=== PATIENT | female | born 1955 ===

== ENCOUNTER 2024-10-28 06:03 | Day surgery (SDC) | payer OTHER, SELFPAY ==
[2024-10-28 06:29] VITALS: BP 124/65
[2024-10-28 06:29] LABS: Glucose - Point of Care 98 mg/dl (70-99)
[2024-10-28] MEDS: ALCAINE 0.5% EYE DROPS 2 DROP OPHTH (06:32)
[2024-10-28] MEDS: PRED FORTE 1% EYE DROPS 1 DROP OPHTH (06:32)
[2024-10-28] MEDS: POLYTRIM OPHTHALMIC SOLUTION 1 DROP OPHTH (06:33)
[2024-10-28] MEDS: NEO-SYNEPHRINE 2.5% OPH SOL. 1 DROP OPHTH (06:33)
[2024-10-28] MEDS: MYDRIACYL 1 DROP OPHTH (06:33)
[2024-10-28] MEDS: CYCLOGYL 1% EYE DROPS 1 DROP OPHTH (06:33)
[2024-10-28 06:34] VITALS: BMI 28.9
[2024-10-28] MEDS: ACUVAIL 10 DROPS OPHTH (06:34)
[2024-10-28] MEDS: AKTEN OPHTHALMIC GEL 1 ML OPHTH (06:34)
[2024-10-28 06:35] VITALS: BMI 28.9
[2024-10-28] MEDS: NORMOSOL-R/PLASMALYTE-A 1000 IV (06:38)
[2024-10-28 07:47] VITALS: BP 105/75
[2024-10-28 08:02] VITALS: BP 98/40
== END 2024-10-28 08:55 | disposition home or self-care (01) ==
LOC: SDS 06:03
PROVIDERS: ATTENDING PHYSICIAN Ophthalmology
DX: H25.12 Age-related nuclear cataract, left eye (principal)
CPT/HCPCS: 66984; 82962

== ENCOUNTER 2024-11-11 06:11 | Day surgery (SDC) | payer OTHER, SELFPAY ==
[2024-11-11 06:23] VITALS: BMI 28.9
[2024-11-11 06:42] VITALS: BP 140/73; BMI 28.9
[2024-11-11 06:43] LABS: Glucose - Point of Care 131 mg/dl (70-99)
[2024-11-11] MEDS: ALCAINE 0.5% EYE DROPS 1 DROP OPHTH (06:47)
[2024-11-11] MEDS: POLYTRIM OPHTHALMIC SOLUTION 1 DROP OPHTH (06:48)
[2024-11-11] MEDS: MYDRIACYL 1 DROP OPHTH (06:48)
[2024-11-11] MEDS: PRED FORTE 1% EYE DROPS 1 DROP OPHTH (06:48)
[2024-11-11] MEDS: ACUVAIL 10 DROPS OPHTH (06:49)
[2024-11-11] MEDS: AKTEN OPHTHALMIC GEL 1 ML OPHTH (06:49)
[2024-11-11] MEDS: NEO-SYNEPHRINE 2.5% OPH SOL. 1 DROP OPHTH (06:49)
[2024-11-11] MEDS: CYCLOGYL 1% EYE DROPS 1 DROP OPHTH (06:49)
[2024-11-11 07:45] VITALS: BP 130/55
[2024-11-11 08:00] VITALS: BP 115/92
== END 2024-11-11 08:15 | disposition home or self-care (01) ==
LOC: SDS 06:11
PROVIDERS: ATTENDING PHYSICIAN Ophthalmology
DX: H25.11 Age-related nuclear cataract, right eye (principal)
CPT/HCPCS: 66984; 82962

== ENCOUNTER 2025-05-29 12:18 | Inpatient (IN) | payer MEDICARE, OTHER, SELFPAY ==
[2025-05-29] VITALS (40 sets, daily range): BP systolic 81–115; BP diastolic 31–84; PULSE 2–67; BMI 27.5; BMI 26.3
--- NOTE | 2025-05-29 09:42 | ED.GENMED ---
History of Present Illness
General
Chief Complaint: Change in Mental Status
Time Seen by Provider: 05/29/25 09:42
History of Present Illness
History of Present Illness:
FOCUSED PAST MEDICAL HISTORY
- Aortic stenosis, atrial fibrillation on Xarelto, CHF, CAD
REVIEW OF OLD RECORDS
- The patient went to the OR with Dr. Momin related to nuclear cataract of both eyes
Note:
CHIEF COMPLAINT(S)
Altered mental status with slurred speech and difficulty finding words.
HISTORY OF PRESENT ILLNESS
The patient is a 69-year-old female with a history of heart conditions, including atrial fibrillation and congestive heart failure, who presented with an acute change in mental status. Per the staff at [facility], the patient was last noted
to be mentally stable yesterday. However, upon routine check this morning between 8:30 and 8:45 AM, she exhibited slurred speech, nystagmus, and word-finding difficulties, suggesting a significant shift in her neurological state. There were concerns
about facial droop, although this was not conclusively identified as new due to her pre-existing tics and tremors.
The patient recently transferred to [facility] from [facility] on May 25, 2025, after a month-long admission for congestive heart failure (CHF) and osteomyelitis management. Her baseline condition before this
recent hospitalization included independence�she was living and driving on her own. It is noteworthy that she is currently on Rivaroxaban for atrial fibrillation.
Pre-hospital treatment adjustments included withholding Furosemide due to elevated blood urea nitrogen and creatinine levels. The patient is reportedly on supplemental oxygen at a rate of one liter per minute at [facility], which is a recent
development as she was not previously reliant on oxygen. This decline in respiratory function appears to relate to her history of CHF, as it exacerbates on occasion, requiring hospital admissions for intravenous diuretic therapy. However, the
current respiratory issue is mild but contrasts her historical presentation where oxygen was not utilized.
The immediate plan involves obtaining a CT scan of the head to investigate the possibility of a cerebrovascular accident, given her symptoms.
ADDITIONAL HISTORY OBTAINED FROM SOURCES OTHER THAN THE PATIENT
According to the staff at [facility], observations were made this morning that indicated a major change in her mental status, including slurred speech and word-finding difficulties. She was previously doing well without these symptoms.
CHRONIC MEDICAL CONDITIONS SIGNIFICANTLY AFFECTING CARE
- Atrial fibrillation
- Congestive heart failure
- Aortic stenosis
PHYSICAL EXAM
- General: The patient is ill-appearing
- HEENT: Moist oral mucosa
- Cardiovascular: Systolic murmur upper border right, normal heart rate, regular rhythm, No chest wall tenderness
- Pulmonary: Minimal respiratory distress, breath sounds are somewhat coarse
- Abdomen: Soft with no peritoneal signs, no tenderness
- Neurologic: The patient is aphasic, nonverbal upon arrival, seems to be able to follow command to open and close eyes but does this very weakly, no spontaneous movements of the extremities, subtle facial asymmetry
- Psychiatric: Currently nonverbal does not participate with examination
- Extremities: Nontender, no edema
- Skin: No rash, no lesions
PLAN
- Conduct a CT scan of the head to evaluate for possible stroke.
- Continue monitoring respiratory status and adjust oxygen therapy as necessary.
- Emergent EEG
DIFFERENTIAL DIAGNOSIS
The Differential Diagnosis includes, in no particular order and is not limited to:
1. Ischemic stroke
2. Transient ischemic attack
3. Intracranial hemorrhage
4. Medication side effects or toxicity
5. Metabolic encephalopathy
6. Sepsis
7. Acute exacerbation of congestive heart failure
8. Electrolyte imbalances
9. Infection (e.g., pneumonia, sepsis)
10. Atrial fibrillation-related embolism
RADIOLOGY
- CT head shows no acute abnormality
EKG
- Sinus 78, nonspecific abnormality, PVCs
LABS
- White count 15.3, hemoglobin 10.2, BUN 57, creatinine 2.0, BNP 12,700, troponin 0.081
UPDATE
-SUMMARY OF ENCOUNTER
The patient, a 69-year-old female with a history of atrial fibrillation and congestive heart failure, presented with altered mental status, slurred speech, and difficulty finding words. Her bedside Ceribell EEG showed a seizure burden reaching up to
97%, indicating significant neurological activity leading to these symptoms. Emergency management included administration of diazepam and levetiracetam (Keppra) to address the suspected seizure activity. This intervention led to some improvement in
her condition, although concerns about her neurological status remain.
EMERGENCY TREATMENTS ADMINISTERED
The patient received diazepam and levetiracetam (Keppra) during her emergency department visit to manage her acute seizure activity.
PLAN
The immediate plan involves obtaining a CT scan of the head to evaluate for possible stroke and continuing seizure management with ongoing monitoring for further interventions as necessary.
I discussed case with neurology
MEDICAL DECISION MAKING
-Complexity of Data Reviewed: Chronic conditions affecting care include atrial fibrillation, congestive heart failure, and aortic stenosis. Differential diagnosis considerations include ischemic stroke, transient ischemic attack, intracranial
hemorrhage, medication side effects or toxicity, metabolic encephalopathy, sepsis, acute exacerbation of congestive heart failure, electrolyte imbalances, infection, and atrial fibrillation-related embolism.
-Data:
Category 1: An EEG was reviewed, which showed a seizure burden up to 97%. This finding significantly influenced the decision to administer anticonvulsants.
Category 2: Additional information was obtained from staff at the care facility where the patient is currently residing, indicating an acute change in her mental status and confirming the onset of new symptoms.
Category 3: The patients care plan involved collaboration with neurology specialists for further management of her seizure disorder.
-Risk: Prescription medication for seizure management was administered in the form of diazepam and levetiracetam, noting the potential risks associated with acute anticonvulsant therapy.
DIAGNOSIS
1. Altered mental status, R41.82
2. Seizure, R56.9
Phy Exam
Physical Exam
Physical Exam:
See HPI
Course
Orders/Labs/Results
Orders:
Orders
05/29/25 09:44
CT Head W/o Iv Contrast Urgent
Comment:
Reason For Exam: alt ms
CR Chest Single View Urgent
Reason For Exam: sob
05/29/25 10:07
Ceribell [Rapid Point of Care EEG (ED/ICU ONLY)] Q1H
Indications for use:: Altered Mental Status
05/29/25 10:19
Levetiracetam Injectable [Keppra] 1,000 mg IV NOW STA
diazePAM [Valium Injection] 2.5 mg IV NOW STA
05/29/25 10:21
Complete Blood Count/With Diff Urgent
NT-proBNP Urgent
Troponin I Q6H
05/29/25 10:37
Consult Neurology [NEUROLOGY CONSULT] Urgent
Consulting Provider: Billy Ordonez
Was physician already notified: Yes
05/29/25 10:43
Speech Screening from Tessie Routine
05/29/25 10:59
Comprehensive Metabolic Panel Urgent
Magnesium Urgent
05/29/25 11:27
Admit/Transfer Patient As Directed
Co-Sign Provider:
Level of Care: Inpatient admission
Assign to:: ICU
Physician / Group: Hector
Diagnosis: Status epilepticus
Reason for Hospitalization: Neurology consult, seizure control
Expected length of stay greater than two midnights?: Yes
ELOS- Estimated Length of Stay in days: 3
I certify the patient meets the requirements for IP care: Yes
05/29/25 11:28
PRN Pain Medication Management As Directed
May give lesser potent ordered pain med per pt: Yes
preference::
Protocol:: Medication orders for pain may be administered in a
manner that supports deferring to patient preference
when the pt is:
- Requesting an ordered lesser potent pain medication.
Least to most potent pain medications are defined
as: acetaminophen < NSAID < tramadol < opioids
(morphine, oxycodone, hydromorphone).
- Requesting a lesser dose of the same medication IF
ORDERED.
- Requesting a less intrusive route of administration
if both routes are prescribed by the provider (PO <
IV).
05/29/25 11:33
Code Status As Directed
Resuscitation Status: Full Code
05/29/25 11:40
Electrocardiogram (*1) Urgent
Reason for Study: Chest Pain
EKG- Treatment ONCE
05/29/25 11:42
Levetiracetam Injectable [Keppra] 500 mg .ROUTE .STK-MED ONE
05/29/25 11:43
Levetiracetam Injectable [Keppra] 500 mg IV NOW STA
05/29/25 11:45
0.9% Sodium Chloride 1000 ml [Nss] 1,000 ml IV 100 mls/hr
05/29/25 11:47
Urinalysis Routine
05/29/25 12:13
Records Request [Obtain Records] As Directed
Dates of Information to be Released: April 2025
Type of Information Requested: Discharge Summary
Lab Results
Radiology Results
Obtain Records from: [facility]
05/29/25 12:21
Acetaminophen [Tylenol] 650 mg PO Q6H PRN pain
Dextrose 50%-Water [Dextrose 50% Syringe] 12.5 grams IV [id number] PRN
Glucagon [GlucaGen] 1 mg IM PRN PRN
Lorazepam [Ativan] 0.5 mg IV Q4HPRN PRN
05/29/25 12:21
[employer] Consult Routine
Consulting Provider: Carter Jama
Was physician already notified: Yes
MR Brain W/o & With Contrast Urgent
Comment:
Reason For Exam: new seizures
Recent pill cam endoscopy?: Yes
Activity As Directed
Activity Level: Bedrest
Bedside Glucose Monitoring As Directed
Frequency: AC&HS
Additional Instructions:: Change to q6h if pt on TPN, tube feeding or not eating
05/29/25 Dinner
NPO
Allow oral meds: No
Allow clear liquids: No
05/29/25 16:30
Insulin Aspart Corrective Low [Novolog Flexpen-Low Resistance] See Protocol SC AC
05/29/25 20:00
Apixaban [Eliquis] 5 mg PO BID
Levetiracetam Injectable [Keppra] 500 mg IV Q12
05/29/25 22:00
0.9% Sodium Chloride 1000 ml [Nss] 1,000 ml IV 100 mls/hr
05/30/25 06:00
Glycohemoglobin (HgbA1c) IN AM
Levothyroxine [Synthroid] 50 mcg PO DAILY@0600
05/30/25 08:00
aspirin 81 mg PO DAILY
Abnormal Lab Results
05/29/25 05/29/25
10:21 10:59
WBC 15.3 H 10^3/uL
(4.8-10.8)
Hgb 10.2 L g/dL
(12.0-16.0)
Hct 35.6 L %
(37.0-47.0)
MCH 23.5 L pg
(27.0-31.0)
MCHC 28.7 L g/dL
(33.0-37.0)
RDW 19.8 H %
(11.5-14.5)
MPV 11.0 H fL
(7.4-10.4)
Abs Immat Gran (auto) 0.1 H 10^3/uL
(0-0.05)
Absolute Neuts (auto) 13.1 H 10^3/uL
(1.4-6.5)
Absolute Lymphs (auto) 0.9 L 10^3/uL
(1.2-3.4)
Absolute Monos (auto) 1.0 H 10^3/uL
(0.1-0.6)
Neutrophils % 85.2 H %
(42.2-75.2)
Lymphocytes % 5.6 L %
(20.5-51.1)
Chloride 95 L mmol/L
(98-107)
Carbon Dioxide 34 H mmol/L
(22-30)
BUN 57 H mg/dl
(7-17)
Creatinine 2.0 H mg/dL
(0.6-1.0)
Glucose 117 H mg/dl
(70-99)
Magnesium 2.4 H mg/dl
(1.6-2.3)
Alkaline Phosphatase 145 H U/L
(38-126)
Troponin I 0.081 H* ng/ml
Albumin 3.4 L g/dl
(3.5-5.0)
05/29/25 10:21
05/29/25 10:59
Vital Signs
Initial and Last Documented VS:
Initial Vital Signs
Temp Pulse Resp BP Pulse Ox
37.6 C 82 22 112/75 93
05/29/25 09:42 05/29/25 09:42 05/29/25 09:42 05/29/25 09:42 05/29/25 09:42
Last Documented Vital Signs
Temp Pulse Resp BP Pulse Ox
37.6 C 77 13 115/41 95
05/29/25 09:42 05/29/25 12:00 05/29/25 12:00 05/29/25 11:45 05/29/25 12:00
*Pulse Oximetry
Patient hypoxic: yes (91%)
*Critical Care Note
Total Time (30-74mins, 75-104mins- exclusive of procedures): 65min
comment:
The patient was seen immediately upon arrival. She was ill-appearing. She was not answering questions appropriately. Ceribell EEG was emergently obtained and based on these results, emergent Keppra and diazepam were given which resulted in
overall improvement. Neurologic status was closely monitored and she did start talking more after meds given.
ED Attending Note
-
Portions of this chart may have been created with voice recognition software.� Occasional wrong word or��sound alike� substitutions may have occurred due to the inherent limitations of voice recognition software.
Discharge Plan
Departure
Patient Disposition: Admit
Presentation/result/management discussed w/ accepting MD/DO: Hospitalist
Discharge Problem:
Seizure
Interventions
Interventions:
*Risk Screen - Suicide Last Done: 05/29/25 09:42
*General Assessment Last Done: 05/29/25 09:42
*Neglect/Abuse Screening Last Done: 05/29/25 09:42
*ED- Fall Risk Assessment Last Done: 05/29/25 10:01
*ED COVID-19 Vaccine History Last Done: 05/29/25 10:01
*ED Influenza Vaccine History Last Done: 05/29/25 12:02
ED- Pulmonary Assessment Last Done: 05/29/25 10:35
ED- Neurological Assessment Last Done: 05/29/25 10:35
ED- Cardiac Assessment Last Done: 05/29/25 10:35
ED Swallowing Screen Last Done: 05/29/25 10:35
[2025-05-29] MEDS: VALIUM INJECTION 2.5 MG IV (10:23)
[2025-05-29] MEDS: KEPPRA 1000 MG IV (10:24)
--- NOTE | 2025-05-29 10:44 | EDRN ---
Dressing removed from L foot. There is the surgical wound on the L medial foot with some dried drainage and there is the L lateral foot area with a non stageable wound. Daughter reports this being an 'old issue'.
--- NOTE | 2025-05-29 10:45 | CON.NEURO4 ---
Consultation - Neurology 4
-
CONSULTING PHYSICIAN: Dr. Billy Ordonez
REFERRING PHYSICIAN: Dr. Bronson Hawthorne
DICTATED BY: Dr. Billy Ordonez
DATE/TIME OF REQUEST: 05/29/2025
DATE/TIME OF CONSULTATION: 05/29/2025
Reason for Consultation: Altered mental status and seizure-like activity.
ASSESSMENT AND PLAN:
The patient is a 69 years old female who was brought to the ER for altered mental status. The last known normal was sometimes yesterday as per her daughter who was present at the bedside to provide the history. The EEG was monitored with Ceribell
that showed showed seizure activity. She was loaded with Keppra 1000 mg x 1. And then an additional 500 mg of Keppra was given. The patient mental status improved significantly after receiving Keppra. There was also twitching and tremors noted
that started in the hospital but they stopped after the patient received Keppra The plan is to keep the patient on a maintenance dose of Keppra 500 mg twice a day. Discussed with Dr. Bronson Hawthorne. There is no known history of seizures.
Patient is going to be admitted to the ICU.
Discussed with Dr. Jah Young and Carter Jama.
History of Present Illness:
The patient is a 69 years old female who was brought to the ER for altered mental status. The last known normal was sometime yesterday as per her daughter. The EEG was monitored with Ceribell that showed showed seizure activity. She was loaded
with Keppra 1000 mg x 1. And then an additional 500 mg of Keppra was given. The patient mental status improved significantly after receiving Keppra. The patient's daughter were present at the bedside to provide the history. The plan is to keep
the patient on a maintenance dose of Keppra 500 mg twice a day. There is no known history of seizures.
Past Medical History: Atrial fibrillation, hypertension, hypothyroidism, DM, hyperlipidemia and history of stroke.
Surgical History:
Review of Systems:
Unable to obtain full review of systems due to the acuity of the condition.
Neurologic Examination:
The patient is alert and oriented x 3,
Speech is clear,
The cranial nerves II to XII are grossly intact,
The patient has antigravity strength in all extremities except the right lower extremity likely due to pain due to a wound on the right ankle,
The sensation is grossly intact,
The cerebellar examination does not show limb ataxia.
Vital Signs and Labs
-
Vital Signs and Labs:
Vital Signs
Temp Pulse Resp BP Pulse Ox
37.4 C 64 13 100/47 97
05/29/25 13:00 05/29/25 18:00 05/29/25 18:00 05/29/25 18:00 05/29/25 18:00
Lab Results
05/29/25 10:21
05/29/25 10:59
PT 20.6 Sec (11.4-14.6) H 05/29/25 16:48
INR 1.75 05/29/25 16:48
APTT 64.6 Sec (23.4-35.0) H 05/29/25 16:48
Sodium 136 mmol/L (135-145) 05/29/25 10:59
Potassium 4.5 mmol/L (3.5-5.1) 05/29/25 10:59
BUN 57 mg/dl (7-17) H 05/29/25 10:59
Glucose 117 mg/dl (70-99) H 05/29/25 10:59
Calcium 8.9 mg/dl (8.4-10.2) 05/29/25 10:59
Phosphorus 6.0 mg/dl (2.5-4.5) H 05/29/25 16:48
Aul-Y-Ypdrdetwfur Pept 20156 pg/ml 05/29/25 10:21
Medications
-
Active Medications
Generic Name Dose Route Start Last Admin
Trade Name Freq PRN Reason Stop Dose Admin
Acetaminophen 650 mg 05/29/25 12:21
Acetaminophen 325 Mg Tablet PO 06/26/25 12:20
Q6HPRN PRN
pain
Albuterol/Ipratropium 3 ml 05/29/25 16:00 05/29/25 15:34
Ipratropium 0.5/Albuterol 3 Mg (3 Ml Ampul) INH 3 ml
R QID CRAIG Administration
Protocol
Apixaban 5 mg 05/29/25 20:00
Apixaban (Eliquis) 5 Mg Tablet PO 06/26/25 19:59
BID CRAIG
Aspirin 81 mg 05/30/25 08:00
Aspirin 81 Mg (Enteric Coated) Tablet PO 06/27/25 07:59
DAILY CRAIG
Budesonide 0.5 mg 05/29/25 20:00
Budesonide (Pulmicort Respules) 0.5 Mg/2 Ml INH
R BID CRAIG
Protocol
Dextrose 12.5 grams 05/29/25 12:21
Dextrose 50% (0.5 Grams/Ml) 50 Ml Syringe IV 06/26/25 12:20
[id number] PRN
hypoglycemia
Protocol
Glucagon 1 mg 05/29/25 12:21
Glucagon 1 Mg Vial IM 06/26/25 12:20
PRN PRN
hypoglycemia
Protocol
Sodium Chloride 1,000 mls @ 100 mls/hr 05/29/25 11:45 05/29/25 11:50
Nss IV 05/29/25 21:44 1,000 mls
.Q10H CRAIG Administration
Sodium Chloride 1,000 mls @ 100 mls/hr 05/29/25 22:00
Nss IV 05/30/25 07:59
.Q10H CRAIG
Insulin Aspart 0 units 05/29/25 18:00 05/29/25 17:38
Insulin Aspart Low Resistance 300 Units/3 Ml Pen.Injctr SC 06/26/25 17:59 Not Given
Q6 CRAIG
Protocol
Levetiracetam 500 mg 05/29/25 20:00
Levetiracetam (100 Mg/Ml) 500 Mg/5 Ml Vial IV 06/26/25 19:59
Q12 CRAIG
Levothyroxine Sodium 50 mcg 05/30/25 06:00
Levothyroxine 50 Mcg Tablet PO 06/27/25 05:59
DAILY@0600 CRAIG
Lorazepam 0.5 mg 05/29/25 12:21 05/29/25 12:32
Lorazepam 2 Mg/Ml Vial IV 06/26/25 12:20 0.5 mg
Q4HPRN PRN Administration
seizure
Miconazole Nitrate 0 applic 05/29/25 15:32
Miconazole Powder Bottle TOPICAL 06/26/25 15:31
BIDPRN PRN
Rash
Sodium Chloride 0.25 ml 05/29/25 12:24
Nss (Pf) 10 Ml Vial For Ativan 0.5 Mg Dose IV 06/26/25 12:23
Q4HPRN PRN
IV LORAZEPAM DILUTION
Sodium Chloride 0 flush 05/29/25 13:00
Sodium Chloride 0.9% (Flush) Syringe IV 06/26/25 12:59
PER PROTOCOL CRAIG
Home Medications
�Medication �Instructions �Recorded
aspirin 81 mg capsule 81 mg PO DAILY Blood Clot 10/26/24
Prevention/Tx
bumetanide 2 mg tablet 2 mg PO BID Fluid 10/26/24
Retention/Swelling
fentanyl 100 mcg/hr transdermal 1 patch transdermal Q72H Pain 10/26/24
patch
gabapentin 400 mg capsule 400 mg PO TID Pain 10/26/24
levothyroxine 50 mcg tablet 50 mcg PO DAILY Thyroid 10/26/24
metformin 500 mg tablet 1,000 mg PO BID Diabetes 10/26/24
metoprolol tartrate 25 mg tablet 50 mg PO BID Blood Pressure 10/26/24
morphine 30 mg immediate release 30 mg PO Q4H PRN pain 10/26/24
tablet
omeprazole 40 mg capsule,delayed 40 mg PO BID Gastrointestinal Issue 10/26/24
release
repaglinide 1 mg tablet 1 mg PO BID Diabetes 10/26/24
acetaminophen 325 mg tablet 650 mg PO Q6H PRN pain 05/29/25
apixaban 5 mg tablet 5 mg PO BID Blood Clot 05/29/25
Prevention/Tx
dapagliflozin propanediol 10 mg 10 mg PO DAILY Diabetes 05/29/25
tablet
[2025-05-29 10:50] LABS: Hematocrit 35.6 % (37.0-47.0); Hemoglobin 10.2 g/dL (12.0-16.0); Mean Corp Hgb Conc. 28.7 g/dL (33.0-37.0); Mean Corpuscular Volume 82.0 fL (81.0-99.0); Nucleated Red Blood Cells % 0 %; Platelet Count 213 10^3/uL (130-400); Red Cell Dist. Width 19.8 % (11.5-14.5)
[2025-05-29 11:28] LABS: ALT (SGPT) 22 U/L (0-35); AST (SGOT) 31 U/L (14-36); Albumin 3.4 g/dl (3.5-5.0); Alkaline Phosphatase 145 U/L (38-126); Blood Urea Nitrogen 57 mg/dl (7-17); Calcium 8.9 mg/dl (8.4-10.2); Carbon Dioxide 34 mmol/L (22-30); Chloride 95 mmol/L (98-107); Estimated Creatinine Clearance 25 ml/min; Glucose 117 mg/dl (70-99); Magnesium 2.4 mg/dl (1.6-2.3); Potassium 4.5 mmol/L (3.5-5.1); Sodium 136 mmol/L (135-145); Total Protein 6.8 g/dl (6.3-8.2); eGFR 26.22
[2025-05-29 11:38] LABS: Troponin I 0.081 ng/ml
[2025-05-29] MEDS: KEPPRA 500 MG IV ×2 (11:44→19:56)
--- NOTE | 2025-05-29 11:44 | HPS.HSE ---
Family Physician
-
Family Physician:
Chief Complaint
-
Altered mental status
History of Present Illness
69-year-old female transferred from [facility] for altered mental status, lethargy noted by staff this morning. All information gathered by speaking with ED staff, patient's daughter. Patient herself is too confused to provide details.
Apparently was hospitalized at [facility] in [place] for the past month, transferred to [facility] on May 25. She was admitted to [facility] for treatment of congestive heart failure as well as debridement of
right ankle wound. CT of the head done at that time did not show any acute disease but mention an old stroke. Brain MRI was not done. No reports of seizure activity in the hospital.
No known history of seizures.
Daughter mentioned that she has had progressive decline in mental status over the past few weeks in the hospital. Has had global weakness.
Also had twitching and tremors that started in the hospital.
In the emergency room Cerebell was applied to her head with note of seizure activity. Mental status improved with a dose of Keppra and Valium.
Patient's daughter at the bedside makes note of audible rhonchorous breathing that just started today.
Daughter mentioned that she was last noted to be in her usual mental status yesterday.
Prior to hospitalization a month ago at [facility] patient was relatively independent, driving herself.
Medical History
Past Medical History
Past Medical History: Reports Other
Additional Past Medical History:
Atrial fibrillation
essential hypertension
Hypothyroidism
DM 2
PAD
Hyperlipidemia
Right ankle osteomyelitis/wound
Chronic anemia
History of stroke
Cataracts
Past Surgical History: Reports Other
Additional Past Surgical History:
CABGx2
Cataract
Right Ankle debridement
Social History
Tobacco: Former Smoker
Alcohol: None
Drug: None
Personal:
Living: With Family
Family History
Family History: Not pertinent
Allergies / Home Medications
Allergies reflects when Allergies were last updated in AppSheet.
Home Medications with original date entered in AppSheet
Allergy/Medication List:
Allergies
Allergy/AdvReac Type Severity Reaction Status Date / Time
Latex, Natural Rubber Allergy Intermediate Rash Verified 05/29/25 10:00
Home Medications
aspirin 81 mg capsule 81 mg PO DAILY 10/26/24
bumetanide 2 mg tablet 2 mg PO BID 10/26/24
fentanyl 100 mcg/hr transdermal patch 1 patch transdermal Q72H 10/26/24
gabapentin 400 mg capsule 400 mg PO TID 10/26/24
levothyroxine 50 mcg tablet 50 mcg PO DAILY 10/26/24
metformin 500 mg tablet 1,000 mg PO BID 10/26/24
metoprolol tartrate 25 mg tablet 50 mg PO BID 10/26/24
morphine 30 mg immediate release tablet 30 mg PO Q4H PRN pain 10/26/24
omeprazole 40 mg capsule,delayed release 40 mg PO BID 10/26/24
repaglinide 1 mg tablet 1 mg PO BID 10/26/24
acetaminophen 325 mg tablet 650 mg PO Q6H PRN pain 05/29/25
apixaban 5 mg tablet 5 mg PO BID 05/29/25
dapagliflozin propanediol 10 mg tablet 10 mg PO DAILY 05/29/25
Review of Systems
-
Unable to obtain full review of systems at this time due to: Acuity
History Source: Family
Physical Exam
Vital Signs
Vital Signs
Temp Pulse Resp BP Pulse Ox
99.6 F 79 22 112/75 99
05/29/25 09:42 05/29/25 10:16 05/29/25 10:16 05/29/25 09:42 05/29/25 10:16
Physical Exam
General: Well Developed, Well Nourished, No Apparent Distress, Comfortable and Appears Chronically Ill
HEENT: NormoCephalic and Anicteric
Respiratory: Rhonchi
Cardiac: S1/S2 and Regular Rhythm
Breast: Deferred by me
GI: Soft, Non Tender and Non Distended
Genito-urinary: Deferred by me
Musculoskeletal: No Clubbing, No Cyanosis, No Edema and Other (right charcot foot)
Skin: Warm and Dry
Neuro: Sedated
Hematologic/Lymphatic: No Lymphadenopathy
Psych: Calm
Laboratory Results
-
05/29/25 10:21
05/29/25 10:59
Laboratory Results
Total Bilirubin 1.1 mg/dl (0.2-1.3) 05/29/25 10:59
AST 31 U/L (14-36) 05/29/25 10:59
ALT 22 U/L (0-35) 05/29/25 10:59
Alkaline Phosphatase 145 U/L (38-126) H 05/29/25 10:59
Troponin I 0.081 ng/ml H* 05/29/25 10:21
Impression/Plan
-
Acute Encephalopathy due to seizures - admit to ICU. Onset of symptoms presumably this am while in Rehab.
Book Packer consult.
New onset seizures/status epilepticus - mental status somewhat improved with Keppra, Valium. However, remains encephalopathic overall. Not sure how much of it is from Valium administered in the emergency room, versus underlying seizures.
Neurology consulted.
CT head without acute disease. Does show 4mm decreased density within the periventricular white matter of the left frontal lobe, likely a small old white matter infarct. Mild diffuse atrophy. Mild periventricular leukomalacia.
Brain MRI with/without ordered, discussed with Dr Ordonez.
GINI -suspect due to volume depletion. Creatinine noted to be 1.2 on 05/27, currently 2.0. Check urinalysis. Hold diuretics. IV fluids ordered. Contraction alkalosis noted.
Troponin elevation -suspect acute nonischemic myocardial injury due to acute illness. Troponin 0.081. No reports of chest pain or shortness of breath. EKG shows sinus rhythm with occasional PVCs. Nonspecific ST abnormality.
CAD/CABG -daughter states bypass surgery was approximately 15 years ago, two-vessel. Details unclear.
Chronic heart failure, unknown type -hold Bumex for GINI. Appears volume depleted. Daughter states she lost approximately 20 pounds in the hospital, treated with IV Bumex for heart failure exacerbation. Records have been requested.
Atrial fibrillation -unknown type. On chronic anticoagulation, Eliquis.
DM 2 without hyperglycemia -hold metformin. Use low resistance NovoLog scale. Check hemoglobin A1c. Hold oral agents.
Hypothyroidism -continue levothyroxine. Check TSH.
Chronic anemia -normocytic. Presumably due to chronic inflammation. Monitor for now.
Right ankle wound/osteomyelitis/Charcot foot -underwent debridement at [facility] recently. Details unknown. Records requested.
PAD -with multiple toe amputations in the past per family.
Full code
Daughter updated at the bedside.
[2025-05-29] MEDS: NSS 1000 IV ×2 (11:50→22:30)
--- NOTE | 2025-05-29 12:21 | CON.INTV ---
Addendum entered and electronically signed by Carter Jmaa MD 05/29/25 13:10:
Additional diagnoses
Renal insufficiency, admission creatinine 2.0
Mildly elevated troponin, elevated proBNP
Original Note:
Consultation
Consultation Request
Date/Time Consultation Requested: 05/29
Date/Time Consultation Performed: 05/29
Reason for Consultation: Critical care
Medical History
-
History of Present Illness:
History obtained from the chart, and reviewing history from the daughter. Patient is a 69-year-old female with history of heart failure, hypertension, atrial fibrillation, who was independently living up until about 1 month ago, presented to [facility] with heart failure. She was there for a few weeks, treated for heart failure and debridement of right ankle wound, diagnosed with osteomyelitis. She was discharged to rehabilitation 05/25/2025 on antibiotics through her midline. Of
note during her stay there her daughter noticed that she would have tremors and difficulty with speech slurring of speech, increased lethargy which was waxing and waning. She was not seen by neurology at that time. While at the rehab facility, it
was noted that she was increasingly lethargic and for this reason was brought to [facility]. Upon arrival to the hospital, afebrile, pulse 82, breathing at 22, blood pressure 112/75, 93%. Patient was tremulous, not answering questions
appropriate. Cerebell EEG was obtained which showed 97% seizure burden, patient was given Keppra and diazepam with improvement. Patient was able to converse thereafter. Patient has had waxing and waning mental status in the interim, now admitted
to ICU
Daughter states in December 2024. took care of all of patient's medical issues
Daughter states that patient was ambulatory and independent prior to recent hospital stay in April.
.
PMH: Hypertension, hyperlipidemia, atrial fibrillation on chronic anticoagulation, diabetes, hypothyroidism, peripheral arterial disease, history of stroke, recent right ankle osteomyelitis/wound on antibiotics diagnosed April 2025. Records
suggest PICC line placement in October 2024 for chronic antibiotics and history of left buttock abscess, history of right toe amputation in the past. History of coronary disease with bypass surgery many years ago with multiple stents in the past,
timeline unclear according to daughter. Daughter also states was told hemoglobin A1c was elevated
Past Medical History
Past Medical History: None (See HPI)
Past Surgical History: None ( see HPI)
Social History
Tobacco: Former Smoker (13-apfy-cvac history of smoking, quit 2004)
Alcohol: None
Drug: None
Personal: ( February 2025)
Living: Alone
Employment: Retired
Family History
Family History: Other (2 children healthy. Negative for lung disease, lung cancer, blood clots)
Allergies / Home Medications
Allergies
Allergy/AdvReac Type Severity Reaction Status Date / Time
Latex, Natural Rubber Allergy Intermediate Rash Verified 05/29/25 10:00
Home Medications
�Medication �Instructions �Recorded �Confirmed �Last Taken �Type
aspirin 81 mg capsule 81 mg PO DAILY 10/26/24 05/29/25 05/28/25 History
bumetanide 2 mg tablet 2 mg PO BID 10/26/24 05/29/25 11/09/24 History
fentanyl 100 mcg/hr transdermal 1 patch transdermal Q72H 10/26/24 05/29/25 11/09/24 History
patch
gabapentin 400 mg capsule 400 mg PO TID 10/26/24 05/29/25 05/28/25 History
levothyroxine 50 mcg tablet 50 mcg PO DAILY 10/26/24 05/29/25 05/28/25 History
metformin 500 mg tablet 1,000 mg PO BID 10/26/24 05/29/25 05/28/25 History
metoprolol tartrate 25 mg tablet 50 mg PO BID 10/26/24 05/29/25 05/28/25 History
morphine 30 mg immediate release 30 mg PO Q4H PRN pain 10/26/24 05/29/25 11/11/24 04:00 History
tablet
omeprazole 40 mg capsule,delayed 40 mg PO BID 10/26/24 05/29/25 05/28/25 History
release
repaglinide 1 mg tablet 1 mg PO BID 10/26/24 05/29/25 05/28/25 History
acetaminophen 325 mg tablet 650 mg PO Q6H PRN pain 05/29/25 05/29/25 Unknown History
apixaban 5 mg tablet 5 mg PO BID 05/29/25 05/29/25 05/28/25 History
dapagliflozin propanediol 10 mg 10 mg PO DAILY 05/29/25 05/29/25 05/28/25 History
tablet
Review of Systems
-
History Source: Family
All other systems: Negative unless noted
Vitals / Labs / Diagnostic Testing
Vital Signs
Temp Pulse Resp BP Pulse Ox
99.6 F 77 13 115/41 95
05/29/25 09:42 05/29/25 12:00 05/29/25 12:00 05/29/25 11:45 05/29/25 12:00
Lab Data
05/29/25 10:21
05/29/25 10:59
Diagnostic Testing:
Physical Exam
-
HEENT: Normocephalic and Other (Right upper extremity midline)
Cardiovascular: S1/S2, Irregular Rhythm, Murmur (n), Rub (n) and Peripheral Edema (n)
Respiratory: Wheeze (n), Rales (Coarse crackles), Rhonchi (few), Non-Labored Respirations and Other (Poor air movement)
GI: Soft, Non Distended and Non Tender
Neurology: Tremors (Tremulous) and Other (Lethargic, arousable and answers questions)
Skin: Other (No rash, no clubbing) and Other (Right foot bandage)
General: Comfortable
Assessment
-
69-year-old female with history of heart failure, atrial fibrillation on chronic anticoagulation, coronary disease with bypass surgery, suspected COPD with history of smoking, recently hospitalized for 1 month at [facility] for heart
failure, diagnosed with history of stroke, right ankle osteomyelitis discharged on antibiotics to rehabilitation 05/25, now presents with progressive worsening mental status found to have status epilepticus. Patient mated to ICU after loading of
Keppra, treated with diazepam
Acute status epilepticus
Change in mental status progressive
Waxing and waning mental status over the past few weeks per daughter
Tremulous
97% seizure burden per Ceribell
Improved with treatment
Coarse rhonchi, crackles
Recent hospitalization for heart failure April 2025
[facility]
Right ankle osteomyelitis
On antibiotics
History of right toe amputation in the past
Apparently had a PICC line in the right upper extremity in October 2024 for chronic infection
History of left buttock abscess
Conditions present prior to admission
Coronary disease history of bypass surgery 2009
Multiple stents at various times per daughter
Hypertension/hyperlipidemia
Atrial fibrillation on anticoagulation
Diabetes
Poorly controlled per daughter, elevated hemoglobin A1c
Hypothyroidism
Peripheral arterial disease
No procedures. Daughter
Chronic anemia
History of stroke
Suspected sleep disordered breathing
26-nzeo-vpez history of smoking, quit 2004
Plan/recommendations
At this time, patient is critically ill
Upon arrival to ICU, seizure burden 57%, given additional dose of Ativan
Crackles on exam noted
99% saturation
IV fluids held
Although patient is arousable, she has extremely weak cough requires more tracheal suction to trigger cough
She is following commands but profoundly weak and deconditioned and lethargic
Moving forward
Check sputum culture
Check ABG
Empiric BiPAP for now
Head of bed elevated
DuoNebs, budesonide
There may be a component of COPD, [id number] history noted
May benefit from 3% saline
Support bed, chest percussion as able
Patient with fentanyl patch in place. Will discontinue
It is also noted that patient is on gabapentin, morphine as an outpatient
Hold narcotic therapy for now
Tylenol for pain
Ongoing seizure activity noted
Keppra load completed, remains on Keppra
Received 0.5 mg lorazepam upon arrival to ICU, received diazepam in the ED
Neurology following
MRI pending
Marginal blood pressure noted, systolic pressure 90s
Resume fluids, follow oxygen requirement
Given chest exam, I suspect she will require daily chest x-ray for now
If she goes down for imaging, would recommend CT imaging for better look at lung parenchyma
Reviewed with critical care nursing, respiratory care
Reviewed at length with daughter
Patient is full code although daughter states she would not want prolonged life support, mechanical ventilation
TCCT 45 min
--- NOTE | 2025-05-29 12:30 | PTCARENOTE ---
Pt rec'd into ICU room 3371 from ED, pulled over to bed. Pt arrives on cerebell EEG monitor, seizure burden noted upon arrival to be 57%. Ativan administered per orders, seizure burden returned to 0. Pt was drowsy but arousable on arrival, 6L nasal
cannula in place, sa02 high 90s, extremely coarse rattly lung sounds, productive cough of thick snider sputum. Sputum culture obtained as ordered, ABG ordered by engine assembler. Orders reviewed, plan of care discussed. Pt's daughter at bedside to answer
admission questions.
[2025-05-29] MEDS: ATIVAN 0.5 MG IV (12:32)
[2025-05-29 13:06] LABS: Glucose - Point of Care 111 mg/dl (70-99)
--- NOTE | 2025-05-29 13:10 | PTCARENOTE ---
ABG drawn and sent, placed on bipap by RT as ordered. Orders reviewed and plan discussed with Call Center Dispatcher. BS and straight cath'd, urine sent. Soft Bps as documented, see worklist.
[2025-05-29 13:15] LABS: Urine Character Clear (Clear)
[2025-05-29 13:18] LABS: B.E. 8.3 mmol/L; HCO3 35.6 mmol/L (21-28); O2 Saturation % 98.8 % (94-98); PCO2 66 mmHg (32-35); PO2 94 mmHg (83-108)
[2025-05-29 13:35] LABS: Urine Red Blood Cell 0-2 /HPF (0-2)
--- NOTE | 2025-05-29 13:35 | W.PN.UPDATE ---
Update Note
Progress Note Update
ABG reviewed
Chronic with mild acute CO2 retention
Much better air movement on BiPAP
Thick brown secretions suctioned
Patient with extremely poor airway clearance
Maintain on BiPAP for now
Ceribell currently 0%
Blood cultures obtained
Right ankle wound and stage II sacral decubitus ulcer noted
Wound care
Updated daughter
--- NOTE | 2025-05-29 13:55 | CM ---
CM reviewed chart and spoke to pt's daughter Chapis on the phone. Pt came to the hospital from [facility] where she has been on STR since 05/25/25. Pt was admitted there after a month long hospital stay at [facility] for
CHF and L ankle wound.
Prior to the [facility] stay, pt lived alone in [facility], was independent in ADLs, personal care and ambulation.
Per her daughter, pt has been mostly in bed at , was on 1 L NC. She is currently on Bipap.
PCP: Goldy Macias at
Pharmacy: [facility] at
CM will continue to follow for all discharge planning needs.
[2025-05-29 13:59] LABS: TSH 1.10 uIU/ml (0.47-4.68)
--- NOTE | 2025-05-29 14:02 | PTCARENOTE ---
Pt with Fent patch 100 mcg/hr upon arrival, wasted per protocol, per assistant therapy aide, will leave off for now and reassess tomorrow.
[2025-05-29] MEDS: DUONEB 3 ML INH ×2 (15:34→19:39)
[2025-05-29 17:09] LABS: INR 1.75; PT 20.6 Sec (11.4-14.6)
[2025-05-29 17:10] LABS: APTT 64.6 Sec (23.4-35.0)
[2025-05-29 17:22] LABS: Troponin I 0.086 ng/ml
[2025-05-29 17:48] LABS: Glucose - Point of Care 120 mg/dl (70-99)
--- NOTE | 2025-05-29 18:17 | PTCARENOTE ---
Pt more lethargic and drowsy this afternoon, aware. Sz burden remains 0. Labs drawn and sent as ordered. IVF continue, Pts vitals gradually improving, see flowsheet. Pt cleared for MRI tomorrow am per tech if able to travel. Daughter left, bed
alarm in place, ced care provided, pt turned Q2h. Safe environment ongoing.
[2025-05-29] MEDS: PULMICORT 0.5 MG INH (19:39)
--- NOTE | 2025-05-29 20:00 | PTCARENOTE ---
Received pt resting in bed, arousable to verbal. Awakens and answers a few questions and follows simple commands but then drifts back to sleep. Oriented only to self. COOPER. Ceribell maintained- 0% seizure burden. SR on tele. HR 60s. BP 90s/40s.
Afebrile. On bipap 12/6 w/ 2L bled through. Spo2 99%. Lungs coarse. NPO. + bowel sounds. No urine output - will monitor bladder scans. R midline with NSS @ 100ml/hr per orders. Turning q2.
[2025-05-29] MEDS: ELIQUIS PO (20:15)
[2025-05-30] VITALS (22 sets, daily range): BP systolic 85–124; BP diastolic 37–101; PULSE 2–66; BMI 26.6
[2025-05-30 00:40] LABS: Glucose - Point of Care 91 mg/dl (70-99)
--- NOTE | 2025-05-30 03:17 | PTCARENOTE ---
Pt. more awake and interactive this morning, answering more questions and more sustained awakening. Pt. without complaints at this time. Bladder scan = 400ml - straight cath'd for 400ml emma yellow urine without issue. Bathed with CHG. Had small
soft BM. Ceribell continues - 0% seizure burden.
[2025-05-30 04:27] LABS: Hematocrit 32.6 % (37.0-47.0); Hemoglobin 8.9 g/dL (12.0-16.0); Mean Corp Hgb Conc. 27.3 g/dL (33.0-37.0); Mean Corpuscular Volume 86.2 fL (81.0-99.0); Nucleated Red Blood Cells % 0 %; Platelet Count 212 10^3/uL (130-400); Red Cell Dist. Width 19.3 % (11.5-14.5)
[2025-05-30 04:43] LABS: ALT (SGPT) 20 U/L (0-35); AST (SGOT) 27 U/L (14-36); Albumin 3.2 g/dl (3.5-5.0); Alkaline Phosphatase 143 U/L (38-126); Blood Urea Nitrogen 58 mg/dl (7-17); Calcium 8.6 mg/dl (8.4-10.2); Carbon Dioxide 33 mmol/L (22-30); Chloride 100 mmol/L (98-107); Estimated Creatinine Clearance 27 ml/min; Glucose 93 mg/dl (70-99); Potassium 4.6 mmol/L (3.5-5.1); Sodium 141 mmol/L (135-145); Total Protein 6.4 g/dl (6.3-8.2); eGFR 27.88
[2025-05-30] MEDS: SYNTHROID PO (05:55)
[2025-05-30 06:06] LABS: Glucose - Point of Care 88 mg/dl (70-99)
--- NOTE | 2025-05-30 06:40 | W.PN.INTV ---
Addendum entered and electronically signed by Carter Jama MD 05/30/25 12:51:
Patient continues to improve throughout the day
Family at bedside, feels she has improved tremendously
Tolerating airway clearance
Blood pressure stable, 90s to 110s systolic
Brain MRI pending
Will transfer to IMU
Pulmonary will continue to follow
Original Note:
Today's Communication / Plan
Recommendations
Consider Dobbhoff tube
Continue BiPAP intermittently throughout the day and nightly
Chest x-ray and ABG in a.m.
Follow cultures
Currently remains off antibiotics
Await MRI imaging
Assessment
-
69-year-old female with history of heart failure, atrial fibrillation on chronic anticoagulation, coronary disease with bypass surgery, suspected COPD with history of smoking, recently hospitalized for 1 month at [facility] for heart
failure, diagnosed with history of stroke, right ankle osteomyelitis discharged on antibiotics to rehabilitation 05/25, now presents with progressive worsening mental status found to have status epilepticus. Patient mated to ICU after loading of
Keppra, treated with diazepam
Acute status epilepticus
Change in mental status progressive
Waxing and waning mental status over the past few weeks per daughter
Tremulous
97% seizure burden per Ceribell
Improved with treatment
Coarse rhonchi, crackles
Recent hospitalization for heart failure April 2025
[facility]
Right ankle osteomyelitis
On antibiotics
History of right toe amputation in the past
Apparently had a PICC line in the right upper extremity in October 2024 for chronic infection
History of left buttock abscess
Anemia, hemoglobin 8.9
History of chronic anemia
Conditions present prior to admission
Coronary disease history of bypass surgery 2009
Multiple stents at various times per daughter
Hypertension/hyperlipidemia
Atrial fibrillation on anticoagulation
Diabetes
Poorly controlled per daughter, elevated hemoglobin A1c
Hypothyroidism
Peripheral arterial disease
No procedures. Daughter
History of stroke
Suspected sleep disordered breathing
[id number] history of smoking, quit 2004
Plan/recommendations
At this time, patient is critically ill, requiring BiPAP
Mental status still suboptimal but appears to be slightly more arousable, following commands
Upon arrival to ICU, seizure burden 57%, given additional dose of Ativan, now 0%
Crackles on exam noted
97% saturation
Moving forward
Maintain BiPAP for now, will intermittently take off during the day for oral care
Would consider placing Dobbhoff tube. Will discuss with primary service
ABG in the a.m.
Head of bed elevated, aspiration precautions
Continue nebulized treatment
There may be a component of COPD, 79-[id number] history noted
May benefit from 3% saline
Support bed, chest percussion as able
CXR in the a.m.
If she goes down for imaging, would recommend CT imaging for better look at lung parenchyma
Patient with fentanyl patch in place. Will discontinue
It is also noted that patient is on gabapentin, morphine as an outpatient
Hold narcotic therapy for now
Tylenol for pain
Reassess for pain in the next 24 to 48 hours
Seizure activity noted
Ceribell now 0%
Keppra load completed, remains on Keppra
Received 0.5 mg lorazepam upon arrival to ICU, received diazepam in the ED
Neurology following
MRI pending
Marginal blood pressure noted, systolic pressure 90s
Continue fluids, follow oxygen requirement
Consider echocardiogram 05/31
Follow blood cultures, sputum culture
Currently remains off antibiotics. Had been on prolonged antibiotics for right ankle wound, chronic wound in October 2024
Also has history of buttocks abscess on the left, details unclear
Sacral decubitus, stage II
Reviewed with critical care nursing, respiratory care
Patient is full code although daughter states she would not want prolonged life support, mechanical ventilation
TCCT 31 min
Subjective Dataa
Subjective Data
Date of Service:
Date of Service: May 30, 2025
Subjective:
Patient does appear to be slightly more awake in the sense that she opens eyes, follows commands but still is lethargic overall. Remains on BiPAP.
Objective Data
Data Reviewed
Vital Signs / I&O / Oxygen:
Vital Signs
Temp Pulse Resp BP Pulse Ox
97 F 63 14 90/49 97
05/30/25 00:25 05/30/25 06:30 05/30/25 06:30 05/30/25 06:00 05/30/25 06:30
Intake and Output
05/28/25 05/29/25 05/30/25
06:59 06:59 05:59
Intake Total 1700 / 1700
Output Total 900 / 900
Balance 800 / 800
SaO2 97
Nasal Cannula flow liters per 2
minute
Physical Exam
General: Comfortable and Other (Right upper extremity midline)
HEENT: Normocephalic
Cardiovascular: S1-S2, Regular Rhythm, Murmur (2/6 systolic murmur) and Rub (n)
Respiratory: Wheeze (n), Crackles (Few posteriorly), Rhonchi (few), Non-Labored Respirations and Stridor (n)
GI: Soft, Non Distended (Obese) and Non Tender
Neurology: Lethargic (Arousable, follows commands)
Skin: Other (Right medial ankle wound, erythematous with stitch in place. Sacral decubitus ulcer)
Labs/Micro/Reports
Lab Data
05/30/25 04:01
05/30/25 04:01
Laboratory Results
05/29/25 05/29/25
13:06 16:48
PT 20.6 H
INR 1.75
APTT 64.6 H
pH 7.34 L
pCO2 66 H
pO2 94
HCO3 35.6 H
O2 Delivery Level
Microbiology
05/29/25 13:07 Sputum Gram Stain - Preliminary
[2025-05-30] MEDS: PULMICORT 0.5 MG INH ×2 (07:30→19:20)
[2025-05-30] MEDS: DUONEB 3 ML INH ×4 (07:30→19:20)
[2025-05-30] MEDS: SODIUM CHLORIDE 3% FOR INHALATION 1 VIAL INH ×2 (07:31→19:20)
[2025-05-30] MEDS: KEPPRA 500 MG IV ×2 (07:34→20:07)
--- NOTE | 2025-05-30 07:39 | W.PN.HOSP.TC ---
Today's Communication/Plan
-
Await records
Brain MRI
Await cultures
Speech therapy consult
ID consult
Assessment / Plan
Assessment / Plan
Gen-awake, alert, appears chronically ill, NAD
HEENT-NC, AT, anicteric, clear oral mm
Neck-supple
CV-reg, no M, +S1/S2
Lungs-rhonchi bilaterally
Abd-soft, NT, ND
Ext-no edema
Musculoskeletal-no cyanosis, clubbing, right Charcot foot with dressing on ankle
Skin-warm and dry
Neuro-grossly non-focal
Psych-calm, cooperative
Acute Encephalopathy -suspect due to seizures, hypercapnia, possibly medications, currently in ICU. Onset of symptoms presumably 11/ AM while in Rehab.
Electrical Engineering Teacher following, recommendation to transfer to IMU.
Differential diagnosis of cefepime induced encephalopathy, seizures. MRI pending.
New onset seizures/status epilepticus - mental status somewhat improved with Keppra, Valium. However, remains encephalopathic overall.
Neurology following. Ceribell device on head.
CT head without acute disease. Does show 4mm decreased density within the periventricular white matter of the left frontal lobe, likely a small old white matter infarct. Mild diffuse atrophy. Mild periventricular leukomalacia.
Brain MRI with/without ordered, discussed with Dr Ordonez.
Shock -present on admission, still hypotensive. Unclear etiology. Differential diagnosis of sepsis versus cardiogenic versus other. Check cortisol level. Has not required vasopressors so far. MAP is 65 this morning.
Acute hypoxic/hypercapnic respiratory failure -present on admission. ABG noted, pCO2 66. Required BiPAP yesterday and last night. Taken off of BiPAP this morning, now on 4 L nasal cannula.
Admission chest x-ray showed clear lungs. Enlarged cardiac silhouette.
GINI -suspect due to volume depletion. Creatinine noted to be 1.2 on 05/27, 2.0 on admission, 1.9 today. Check urinalysis. Hold diuretics. IV fluids ordered. Contraction alkalosis noted.
Troponin elevation -suspect acute nonischemic myocardial injury due to acute illness. No reports of chest pain or shortness of breath. EKG shows sinus rhythm with occasional PVCs. Nonspecific ST abnormality.
CAD/CABG -daughter states bypass surgery was approximately 15 years ago, two-vessel. Details unclear.
Chronic heart failure, unknown type -hold Bumex for GINI. Appears volume depleted. Daughter states she lost approximately 20 pounds in the hospital, treated with IV Bumex for heart failure exacerbation. Records have been requested.
Atrial fibrillation -unknown type. On chronic anticoagulation, Eliquis.
DM 2 without hyperglycemia -hold metformin. Use low resistance NovoLog scale. Check hemoglobin A1c. Hold oral agents.
Hypothyroidism -continue levothyroxine. TSH 1.1.
Chronic anemia -normocytic. Presumably due to chronic inflammation. Monitor for now.
Right ankle wound/osteomyelitis/Charcot foot -underwent debridement at [facility] recently. Details unknown. Records requested. Apparently was on cefepime and discharged to rehab on this antibiotic. Holding cefepime for
encephalopathy, seizures, ID consulted. Blood cultures pending. Leukocytosis resolved. Afebrile here.
PAD -with multiple toe amputations in the past per family.
Full code
Total Critical Care Time 60 minutes. I was immediately available to the patient and staff. I personally examined, reviewed labs, diagnostic images/reports, interpretations, treatment plans, discussed patient care with other providers and family
or caregivers (if patient is unable to make decisions), entered orders as appropriate and documented the medical record.
Anticipated Discharge: > 48 hours
Subjective/Interval History
-
Date of Service: May 30, 2025
Patient seen and examined. Awake, alert, not fully oriented. No complaints.
Objective Data
-
Labs:
Laboratory Results
05/30/25
04:01
WBC 8.7
Hgb 8.9 L
Hct 32.6 L
Plt Count 212
Sodium 141
Potassium 4.6
Chloride 100
Carbon Dioxide 33 H
BUN 58 H
Creatinine 1.9 H
Glucose 93
Calcium 8.6
Total Bilirubin 0.8
AST 27
ALT 20
Alkaline Phosphatase 143 H
Vital Signs:
Vital Signs
Temp Pulse Resp BP Pulse Ox
97 F 67 28 90/49 95
05/30/25 00:25 05/30/25 07:35 05/30/25 07:35 05/30/25 06:00 05/30/25 07:35
I&O
05/29/25 05/30/25 05/31/25
06:59 05:59 06:59
Intake Total 1700 / 1700
Output Total 900 / 900
Balance 800 / 800
Review of Systems
-
Unable to obtain full review of systems at this time due to: Acuity
History Source: Patient
All other systems: Reviewed and negative
[2025-05-30] MEDS: ASPIR LOW (ENTERIC COATED) 81 MG PO (07:46)
[2025-05-30] MEDS: ELIQUIS 5 MG PO ×2 (07:46→20:07)
[2025-05-30 08:51] LABS: Cortisol, Random 28.0 ug/dl
[2025-05-30 09:16] LABS: Glycohemoglobin (HgbA1c) 7.3 % (4.0-5.9)
--- NOTE | 2025-05-30 09:38 | CON.ID ---
Consultation
-
Date/Time Consultation Requested: 05/30/2025 6022
Date/Time Consultation Performed: 05/30/2025 0930
Requesting Provider: Dr. Young
Performing Provider: Dr. Hernandez
Reason for Consultation: Encephalopathy; Hx right foot osteomyelitis
Chief Complaint / Past History
History of Present Illness
Elva Bee is a 69-year-old female with a significant past medical history of DM type II and right foot osteomyelitis being evaluated at request of Dr. Young in regards to encephalopathy. History is obtained from chart review, along with
patient interview. Additional history was obtained from the patient's daughter who was present at the bedside.
The patient recently was hospitalized at [facility] for approximately 1 month, during which time she was found to have right foot osteomyelitis, and was placed on a 6-week course of IV antibiotics (cefepime). The daughter notes that she
had an infectious disease physician at the hospital and while she was in inpatient she did have some neurological changes which the OID Position stated 'could be secondary to the antibiotics'. She ultimately was discharged to [facility]. Yesterday, she was found by nursing to have a change in mental status with slurred speech, reported nystagmus and word finding difficulties. Thereafter, she reportedly had a seizure and she was brought to [facility] for
further evaluation.
At this time, she denies any fevers or chills. No foot pain.
Past History
Additional Past Medical History:
A-fib
HTN
Hypothyroidism
DM 2
PAD
HLD
Right foot osteomyelitis / chronic wound wound
Chronic anemia
Hx CVA
Cataracts
Additional Past Surgical History:
CABG x 2
Cataract surgery
Right foot/ankle surgery
Allergy History:
Latex, Natural Rubber Allergy (Intermediate, Verified 05/29/25 10:00)
Rash
Medications Reviewed: Yes
Current Antibiotics:
- Cefepime 2 gm IV q.12 hours (10/6�present)
Social History
Tobacco: Former Smoker
Alcohol: None
Drug: None
Personal:
Living: Alone
Employment: Not Employed
Family History
Family History: Not Pertinent
Review of Systems
Vital Signs
Temp Pulse Resp BP Pulse Ox
98.2 F 75 15 101/41 98
05/30/25 08:05 05/30/25 09:30 05/30/25 09:30 05/30/25 09:00 05/30/25 09:30
Physical Exam
Physical Exam
Constitutional: No Acute Distress, Comfortable, Chronically Ill and Non-toxic
Eyes: Pupils Equal, Pupils Round, No Conjunctival Hemorrhage and Sclera Anicteric
Oral: No Thrush and No Ulcers
Cardiovascular: Regular Rate and S1/S2; Negative S3/S4
Pulmonary: Clear; Negative Wheezes, Rales or Rhonchi
Gastrointestinal: Soft, Non Tender, Non Distended, Normal Bowel Sounds and No Rebound
Extremities: Negative Edema, Cyanosis or Erythema
Skin: Warm and Dry; Negative Rash or Jaundice
Wound: Other (right medial foot wound; 1.3 x 1.3 cm; probe to 1.8 cm)
Neurological: Awake and Alert
Psychological: Calm
Lab / Diagnostic Study Results
05/30/25 04:01
05/30/25 04:01
Abs Immat Gran (auto) 0.0 10^3/uL (0-0.05) 05/30/25 04:01
Absolute Neuts (auto) 6.4 10^3/uL (1.4-6.5) 05/30/25 04:01
Absolute Lymphs (auto) 1.2 10^3/uL (1.2-3.4) 05/30/25 04:01
Absolute Monos (auto) 0.7 10^3/uL (0.1-0.6) H 05/30/25 04:01
Absolute Basos (auto) 0.0 10^3/uL (0-0.2) 05/30/25 04:01
Immature Gran % 0.1 % (0-0.5) 05/30/25 04:01
Neutrophils % 73.0 % (42.2-75.2) 05/30/25 04:01
Lymphocytes % 14.2 % (20.5-51.1) L 05/30/25 04:01
Monocytes % 8.2 % (1.7-9.3) 05/30/25 04:01
Eosinophils % 4.2 % (0-6) 05/30/25 04:01
Basophils % 0.3 % (0-2) 05/30/25 04:01
PT 20.6 Sec (11.4-14.6) H 05/29/25 16:48
INR 1.75 05/29/25 16:48
Urine WBC 3-5 /HPF (0-5) 05/29/25 13:07
Ur Squamous Epith Cells 3-5 /LPF (Few) 05/29/25 13:07
Microbiology Results
Micro:
05/29/25 13:07 Respiratory Culture - Preliminary
Sputum Usual Respiratory Odalis
Gram Stain - Preliminary
05/29/25 13:43 Blood Culture - Pending
Blood/Venous
05/29/25 13:34 Blood Culture - Pending
Blood/Venous
Imaging:
05/29/2025 CT head without contrast: no evidence of acute intracranial abnormality. Please see full dictation for additional detail.
Assessment / Plan
Acute encephalopathy
Reported new onset seizure
Right foot osteomyelitis; currently on prolonged course of cefepime
Leukocytosis with left shift
Renal insufficiency (current est CrCl = 27)
A-fib
HTN
Hypothyroidism
DM 2
PAD
HLD
Right foot osteomyelitis / chronic wound wound
Chronic anemia
Hx CVA
Cataracts
Recommendations:
Given possibility of medication induced encephalopathy (secondary to cefepime) will hold on further antibiotics.
Records from [facility] have been requested, will await acquisition and then review to decide on further antimicrobial selection.
Monitor white count temperature curve.
I have obtained a deep culture of the right foot wound.
Check plain film of the area.
Further recommendations as additional data is returned.
Care Review
Plan reviewed with: Physician (Hospitalist)
--- NOTE | 2025-05-30 10:08 | PTCARENOTE ---
Rec'd pt at 0700 on bipap. Bipap mask removed by resp therapist, pt placed on nasal cannula. Pt AAOx3, follows commands, COOPER with gen weakness. Pt tearful at times about recent decline in health, emotional support given. Cerebel in place, majority
of leads not capturing. Cerebel ok to be dc'd per MD, removed and shampoo cap applied. Pt with moist cough, +thick snider/yellow sputum. Pt encouraged to cough, given yankauer to help remove secretions from mouth d/t thickness of sputum. Pt transferred
into sport bed, percussion utilized. Pt HNV since straight cathed this am, bladder scan 141mls. Pt states she's had difficulty voided since she has gone to rehab. Family at bedside, updated. Pt for MRI ~1200.
[2025-05-30 10:35] LABS: Hepatitis C Antibody Negative (Negative)
[2025-05-30 11:27] LABS: Glucose - Point of Care 85 mg/dl (70-99)
[2025-05-30 11:54] LABS: Glucose - Point of Care 81 mg/dl (70-99)
--- NOTE | 2025-05-30 14:36 | PTOTSP ---
Speech Therapy Evaluation:
Pt with chronic risk factors of dysphagia (CVA) and acute risk factors of dysphagia (seizure). At bedside, pt with prolonged mastication and reduced bolus formation of solids, likely related to partially edentulous state (later confirmed dentures in
bathroom). No s/sx of aspiration, however risk increased during periods of lethargy.
Recommend:
1. IDDSI 6 soft and bite sized solids; thin liquids
2. Ensure dentures in place prior to meal
3. Medications as best tolerated
4. General aspiration precautions
5. Close supervision following diet initiation
6. COATINGS INSPECTOR to follow to monitor tolerance of diet and determine if pt would benefit from additional testing, pending MRI
--- NOTE | 2025-05-30 15:14 | PTCARENOTE ---
MRI completed, pt tolerated well. Oxygen weaned down throughout shift, pox 97% on 3LNC at this time. Family at bedside. IMU LOC.
--- NOTE | 2025-05-30 15:52 | W.PN.NEURO.1 ---
Addendum entered and electronically signed by Billy Ordonez MD 05/30/25 17:48:
MRI of the brain with and without contrast was done today that did not show an acute intracranial abnormality.
Original Note:
Today's Communication / Plan
-
The patient is a 69 years old female who was brought to the ER for altered mental status. The last known normal was sometimes on 06/27/2025 as per her daughter who was present at the bedside to provide the history. The EEG was monitored with
Ceribell that showed showed seizure activity. She was loaded with Keppra 1000 mg x 1. And then an additional 500 mg of Keppra was given. The patient mental status improved significantly after receiving Keppra. There was also twitching and tremors
noted that started in the hospital but they stopped after the patient received Keppra. There is no known history of seizures. Patient was admitted to the ICU.
Today the patient is doing very well. She is alert and oriented x 3 and is able to follow verbal commands quite well. A few twitches of the hands were noted today. The plan is to increase the dose of Keppra to 750 mg twice a day. I did detailed
discussion with the patient's family including her daughter, regarding the assessment and management plan, and theyverbalized understanding of our discussion.
Will sign off please call if you have any question.
Subjective/Objective
Subjective Data
Date of Service: May 30, 2025
The patient is a 69 years old female who was brought to the ER for altered mental status. The last known normal was sometimes on 06/27/2025 as per her daughter who was present at the bedside to provide the history. The EEG was monitored with
Ceribell that showed showed seizure activity. She was loaded with Keppra 1000 mg x 1. And then an additional 500 mg of Keppra was given. The patient mental status improved significantly after receiving Keppra. There was also twitching and tremors
noted that started in the hospital but they stopped after the patient received Keppra. There is no known history of seizures. Patient was admitted to the ICU.
Today the patient is doing very well. She is alert and oriented x 3 and is able to follow verbal commands quite well. A few twitches of the hands were noted today. The plan is to increase the dose of Keppra to 750 mg twice a day. I did detailed
discussion with the patient's family including her daughter, regarding the assessment and management plan, and they verbalized understanding of our discussion.
Objective Data
Vital Signs
Temp Pulse Resp BP Pulse Ox
36.4 C 69 18 112/51 97
05/30/25 15:00 05/30/25 15:12 05/30/25 15:12 05/30/25 14:41 05/30/25 15:12
Lab Results
05/30/25 04:01
05/30/25 04:01
PT 20.6 Sec (11.4-14.6) H 05/29/25 16:48
INR 1.75 05/29/25 16:48
APTT 64.6 Sec (23.4-35.0) H 05/29/25 16:48
Sodium 141 mmol/L (135-145) 05/30/25 04:01
Potassium 4.6 mmol/L (3.5-5.1) 05/30/25 04:01
BUN 58 mg/dl (7-17) H 05/30/25 04:01
Glucose 93 mg/dl (70-99) 05/30/25 04:01
Calcium 8.6 mg/dl (8.4-10.2) 05/30/25 04:01
Phosphorus 6.0 mg/dl (2.5-4.5) H 05/29/25 16:48
Yvr-N-Fwixbfqkzlz Pept 52135 pg/ml 05/29/25 10:21
Patient Allergies
Latex, Natural Rubber Allergy (Intermediate, Verified 05/29/25 10:00)
Rash
Vital Signs and Labs
-
Vital Signs and Labs:
Vital Signs
Temp Pulse Resp BP Pulse Ox
36.4 C 69 18 112/51 97
05/30/25 15:00 05/30/25 15:12 05/30/25 15:12 05/30/25 14:41 05/30/25 15:12
Lab Results
05/30/25 04:01
05/30/25 04:01
PT 20.6 Sec (11.4-14.6) H 05/29/25 16:48
INR 1.75 05/29/25 16:48
APTT 64.6 Sec (23.4-35.0) H 05/29/25 16:48
Sodium 141 mmol/L (135-145) 05/30/25 04:01
Potassium 4.6 mmol/L (3.5-5.1) 05/30/25 04:01
BUN 58 mg/dl (7-17) H 05/30/25 04:01
Glucose 93 mg/dl (70-99) 05/30/25 04:01
Calcium 8.6 mg/dl (8.4-10.2) 05/30/25 04:01
Phosphorus 6.0 mg/dl (2.5-4.5) H 05/29/25 16:48
Ied-M-Vvnvmjlfiyr Pept 43584 pg/ml 05/29/25 10:21
Medications
-
Active Medications
Generic Name Dose Route Start Last Admin
Trade Name Freq PRN Reason Stop Dose Admin
Acetaminophen 650 mg 05/29/25 12:21
Acetaminophen 325 Mg Tablet PO 06/26/25 12:20
Q6HPRN PRN
pain
Albuterol/Ipratropium 3 ml 05/29/25 16:00 05/30/25 15:08
Ipratropium 0.5/Albuterol 3 Mg (3 Ml Ampul) INH 3 ml
R QID CRAIG Administration
Protocol
Apixaban 5 mg 05/29/25 20:00 05/30/25 07:46
Apixaban (Eliquis) 5 Mg Tablet PO 06/26/25 19:59 5 mg
BID CRAIG Administration
Aspirin 81 mg 05/30/25 08:00 05/30/25 07:46
Aspirin 81 Mg (Enteric Coated) Tablet PO 06/27/25 07:59 81 mg
DAILY CRAIG Administration
Budesonide 0.5 mg 05/29/25 20:00 05/30/25 07:30
Budesonide (Pulmicort Respules) 0.5 Mg/2 Ml INH 0.5 mg
R BID CRAIG Administration
Protocol
Dextrose 12.5 grams 05/29/25 12:21
Dextrose 50% (0.5 Grams/Ml) 50 Ml Syringe IV 06/26/25 12:20
[id number] PRN
hypoglycemia
Protocol
Glucagon 1 mg 05/29/25 12:21
Glucagon 1 Mg Vial IM 06/26/25 12:20
PRN PRN
hypoglycemia
Protocol
Insulin Aspart 0 units 05/29/25 18:00 05/30/25 11:31
Insulin Aspart Low Resistance 300 Units/3 Ml Pen.Injctr SC 06/26/25 17:59 Not Given
Q6 CRAIG
Protocol
Levetiracetam 500 mg 05/29/25 20:00 05/30/25 07:34
Levetiracetam (100 Mg/Ml) 500 Mg/5 Ml Vial IV 06/26/25 19:59 500 mg
Q12 CRAIG Administration
Levothyroxine Sodium 50 mcg 05/30/25 06:00 05/30/25 05:55
Levothyroxine 50 Mcg Tablet PO 06/27/25 05:59 Not Given
DAILY@0600 CRAIG
Lorazepam 0.5 mg 05/29/25 12:21 05/29/25 12:32
Lorazepam 2 Mg/Ml Vial IV 06/26/25 12:20 0.5 mg
Q4HPRN PRN Administration
seizure
Miconazole Nitrate 0 applic 05/29/25 15:32
Miconazole Powder Bottle TOPICAL 06/26/25 15:31
BIDPRN PRN
Rash
Sodium Chloride 0.25 ml 05/29/25 12:24
Nss (Pf) 10 Ml Vial For Ativan 0.5 Mg Dose IV 06/26/25 12:23
Q4HPRN PRN
IV LORAZEPAM DILUTION
Sodium Chloride 0 flush 05/29/25 13:00
Sodium Chloride 0.9% (Flush) Syringe IV 06/26/25 12:59
PER PROTOCOL CRAIG
Sodium Chloride 1 vial 05/30/25 08:00 05/30/25 07:31
Sodium Chloride 3% For Inhalation 4 Ml Vial INH 1 vial
R BID CRAIG Administration
Home Medications
�Medication �Instructions �Recorded
aspirin 81 mg capsule 81 mg PO DAILY Blood Clot 10/26/24
Prevention/Tx
bumetanide 2 mg tablet 2 mg PO BID Fluid 10/26/24
Retention/Swelling
fentanyl 100 mcg/hr transdermal 1 patch transdermal Q72H Pain 10/26/24
patch
gabapentin 400 mg capsule 400 mg PO TID Pain 10/26/24
levothyroxine 50 mcg tablet 50 mcg PO DAILY Thyroid 10/26/24
metformin 500 mg tablet 1,000 mg PO BID Diabetes 10/26/24
metoprolol tartrate 25 mg tablet 50 mg PO BID Blood Pressure 10/26/24
morphine 30 mg immediate release 30 mg PO Q4H PRN pain 10/26/24
tablet
omeprazole 40 mg capsule,delayed 40 mg PO BID Gastrointestinal Issue 10/26/24
release
repaglinide 1 mg tablet 1 mg PO BID Diabetes 10/26/24
acetaminophen 325 mg tablet 650 mg PO Q6H PRN pain 05/29/25
apixaban 5 mg tablet 5 mg PO BID Blood Clot 05/29/25
Prevention/Tx
dapagliflozin propanediol 10 mg 10 mg PO DAILY Diabetes 05/29/25
tablet
--- NOTE | 2025-05-30 16:27 | PTCARENOTE ---
Pt has not been able to void on her own for >24hrs, requiring straight cath. Bladder scanned for 446ml, pt states she cannot void at this time. Dr. Young notified, hargrove ordered for retention and inserted without difficulty. Initial output of
425ml cloudy yellow urine from hargrove.
[2025-05-30 18:05] LABS: Glucose - Point of Care 114 mg/dl (70-99)
[2025-05-30] MEDS: TYLENOL 650 MG PO (21:01)
[2025-05-30] MEDS: MORPHINE SULFATE 1 MG IV (21:23)
--- NOTE | 2025-05-30 22:14 | PTCARENOTE ---
Pt. becoming more restless since change of shift, calling out at times, c/o generalized pain. Tylenol was given with no effect. ALECIA Paris notified. Pt. takes morphine and uses fentanyl patch at home. 1mg morphine IV ordered and given. Pt. now
sleeping calmly.
[2025-05-30 23:35] LABS: Glucose - Point of Care 203 mg/dl (70-99)
[2025-05-31] VITALS (12 sets, daily range): BP systolic 107–136; BP diastolic 40–55; PULSE 2–64; BMI 26.6
[2025-05-31] MEDS: MORPHINE SULFATE 1 MG IV ×4 (03:26→17:05)
[2025-05-31 03:46] LABS: Hematocrit 30.5 % (37.0-47.0); Hemoglobin 8.6 g/dL (12.0-16.0); Mean Corp Hgb Conc. 28.2 g/dL (33.0-37.0); Mean Corpuscular Volume 85.9 fL (81.0-99.0); Nucleated Red Blood Cells % 0 %; Platelet Count 197 10^3/uL (130-400); Red Cell Dist. Width 19.0 % (11.5-14.5)
--- NOTE | 2025-05-31 04:13 | PTCARENOTE ---
Since receiving PRN IV morphine last night, pt been resting calmly. Woke up and reported generalized pain again at ~0320- medicated with PRN morphine again. Pt. now back to sleep. Been on bipap 07/03 since last evening. CHG bath/mouth + hargrove care
provided overnight.
[2025-05-31 04:40] LABS: ALT (SGPT) 19 U/L (0-35); AST (SGOT) 26 U/L (14-36); Albumin 3.3 g/dl (3.5-5.0); Alkaline Phosphatase 133 U/L (38-126); Blood Urea Nitrogen 58 mg/dl (7-17); Calcium 8.7 mg/dl (8.4-10.2); Carbon Dioxide 30 mmol/L (22-30); Chloride 101 mmol/L (98-107); Estimated Creatinine Clearance 35 ml/min; Glucose 173 mg/dl (70-99); Potassium 4.3 mmol/L (3.5-5.1); Sodium 137 mmol/L (135-145); Total Protein 6.6 g/dl (6.3-8.2); eGFR 37.03
[2025-05-31] MEDS: SYNTHROID 50 MCG PO (05:52)
--- NOTE | 2025-05-31 07:37 | W.PN.INTV ---
Today's Communication / Plan
Recommendations
Keppra continues
Wean FiO2
Gentle diuresis
Eliquis continues
Eventual VQ scan with severe pulm hypertension-suspect chronic
Stable for transfer to telemetry-pulmonary will continue to follow
Assessment
-
69-year-old female with history of heart failure, atrial fibrillation on chronic anticoagulation, coronary disease with bypass surgery, suspected COPD with history of smoking, recently hospitalized for 1 month at [facility] for heart
failure, diagnosed with history of stroke, right ankle osteomyelitis discharged on antibiotics to rehabilitation 05/25, now presents with progressive worsening mental status found to have status epilepticus. Patient mated to ICU after loading of
Keppra, treated with diazepam
Acute status epilepticus
Change in mental status progressive
Waxing and waning mental status over the past few weeks per daughter
Tremulous
97% seizure burden per Ceribell
Improved with treatment
Coarse rhonchi, crackles
Recent hospitalization for heart failure April 2025
[facility]
Right ankle osteomyelitis
On antibiotics
History of right toe amputation in the past
Apparently had a PICC line in the right upper extremity in October 2024 for chronic infection
History of left buttock abscess
Anemia, hemoglobin 8.9
History of chronic anemia
Conditions present prior to admission
Coronary disease history of bypass surgery 2009
Multiple stents at various times per daughter
Hypertension/hyperlipidemia
Atrial fibrillation on anticoagulation
Diabetes
Poorly controlled per daughter, elevated hemoglobin A1c
Hypothyroidism
Peripheral arterial disease
No procedures. Daughter
History of stroke
Suspected sleep disordered breathing
[id number] history of smoking, quit 2004
Plan/recommendations
Respiratory status has improved
Continue supplemental oxygen as needed-attempt to wean
Nebulizers
BiPAP as needed-begin to liberate
Aspiration precautions
COPD suspected with [id number] smoking history
Chest percussion with support bed
Chest x-ray 05/31/2025-increased vascular congestion and interstitial edema, new small area of airspace opacification right upper lobe
Monitor for seizures
Keppra load completed
Ativan as needed
Neurology following
Brain MRI noted 05/30/2025-no acute intracranial abnormalities, 9 mm meningioma, mild atrophy
Cultures reviewed
Infectious disease following
Antibiotics on hold
Monitor wounds
Echocardiogram 05/31/2025-EF 55-60%, dilated RV, PA systolic estimated 97
Eventual VQ scan for chronic venous thromboembolic disease-note patient on chronic Eliquis
Elevated creatinine prohibits CT chest with PE
DVT prophylaxis-on Eliquis
Nutrition
Early mobilization
Patient stable for transfer to telemetry-pulmonary will follow
Subjective Dataa
Subjective Data
Date of Service:
Date of Service: May 31, 2025
Chief Complaint: Supervisor Spinning Follow Up and Pulmonary Follow Up
Subjective:
Feels better, less short of breath, no chest pain or abdominal pain
Review of Systems
General: Other ( per HPI)
Objective Data
Data Reviewed
Vital Signs / I&O / Oxygen:
Vital Signs
Temp Pulse Resp BP Pulse Ox
98.0 F 54 15 118/49 100
05/31/25 04:25 05/31/25 06:00 05/31/25 06:00 05/31/25 06:00 05/31/25 06:00
Intake and Output
05/30/25 05/31/25 06/01/25
05:59 06:59 06:59
Intake Total 1700 / 1800 560 / 560
Output Total 900 / 900 1025 / 1025
Balance 800 / 900 -465 / -465
SaO2 100
Nasal Cannula flow liters per 4
minute
Physical Exam
General: Respiratory Distress (n), Comfortable and Other (Right upper extremity midline)
HEENT: Normocephalic
Cardiovascular: Regular Rhythm, Murmur (2/6 systolic murmur) and Rub (n)
Respiratory: Wheeze (n), Crackles (Few posteriorly), Rhonchi (few), Non-Labored Respirations and Stridor (n)
GI: Soft, Non Distended (Obese) and Non Tender
Neurology: Awake, Alert and No Motor Deficits
Skin: Warm, Good Color, Cyanosis (n), Jaundice (n), Rash (n) and Other (Right medial ankle wound, erythematous with stitch in place. Sacral decubitus ulcer)
Labs/Micro/Reports
Lab Data
05/31/25 03:32
05/31/25 03:32
Microbiology
05/29/25 13:43 Blood/Venous Blood Culture - Preliminary
No Growth in 24 hours- Final report to follow
05/29/25 13:34 Blood/Venous Blood Culture - Preliminary
No Growth in 24 hours- Final report to follow
05/30/25 09:40 Foot - Right Gram Stain - Preliminary
05/29/25 13:07 Sputum Respiratory Culture - Preliminary
Usual Respiratory Odalis
05/29/25 13:07 Sputum Gram Stain - Preliminary
[2025-05-31] MEDS: DUONEB 3 ML INH ×4 (07:44→19:49)
[2025-05-31] MEDS: SODIUM CHLORIDE 3% FOR INHALATION 1 VIAL INH ×2 (07:44→19:49)
[2025-05-31] MEDS: PULMICORT 0.5 MG INH ×2 (07:44→19:49)
--- NOTE | 2025-05-31 07:54 | W.RAPID.EEG ---
Rapid EEG
-
Procedure Date: 05/29/25
Results:
IMPRESSION:
Continuous Seizures Suspected indicating possible non-convulsive seizures
> 20% Of the 60 Minutes indicating Electrographic Status Epilepticus
Disclaimer: EEG findings should be interpreted in the context of clinical history and other tests. Clinical context is required.
Recording Information:
Diagnostic Recording Time: 22:57:24 (1377 minutes)
Recording 1:
Start Time: May 29, 2025 10:15 AM End Time: May 30, 2025 09:13 AM
Recording Technique: This EEG was obtained using a 10 lead, 8 channel system positioned circumferentially without any parasagittal coverage (rapid EEG). Computer selected EEG is reviewed as well as background features and all clinically significant
events. Clarity algorithm utilized and implemented to provide analysis of underlying activity and seizure detection used to facilitate reading. ICD-10 Code MT12C36
Clinical History: JUAN A ARMSTRONG is a 69 year old Stroke [facility] patient undergoing EEG to screen for non-convulsive status epilepticus.
Medications:
Recorded During Session:
Levetiracetam
May 29, 2025 10:28:14 AM
Elapsed 00:12:30 Lorazepam
May 29, 2025 10:28:50 AM
Elapsed 00:13:06
Findings
Continuous Seizures Suspected indicating possible non-convulsive seizures
> 20% Of the Last 60 Minutes indicating Electrographic Status Epilepticus
[2025-05-31] MEDS: ELIQUIS 5 MG PO ×2 (07:59→19:43)
[2025-05-31] MEDS: ASPIR LOW (ENTERIC COATED) 81 MG PO (07:59)
[2025-05-31] MEDS: KEPPRA 500 MG IV ×2 (08:05→19:43)
[2025-05-31 08:12] LABS: Glucose - Point of Care 134 mg/dl (70-99)
[2025-05-31] MEDS: NOVOLOG FLEXPEN-LOW RESISTANCE SC ×2 (08:21→17:15)
--- NOTE | 2025-05-31 09:09 | W.PN.ID1 ---
Date of Service
Date of Service: May 31, 2025
Today's Communication
Await cultures. Hold on further antibiotics for today. Await records from OSH.
Assessment / Plan
Acute encephalopathy
Reported new onset seizure
Right foot osteomyelitis; currently on prolonged course of cefepime
Leukocytosis with left shift
Renal insufficiency (current est CrCl = 27)
A-fib
HTN
Hypothyroidism
DM 2
PAD
HLD
Right foot osteomyelitis / chronic wound wound
Chronic anemia
Hx CVA
Cataracts
Recommendations:
Currently holding on antibiotics given the possibility of medication�induced encephalopathy (secondary to cefepime)
Records from [facility] requested 05/29/2025. Still awaiting acquisition and will then review to decide on further antimicrobial selection.
Monitor white count temperature curve.
Deep culture of the right foot wound obtained yesterday. Results pending
X-ray of the right foot does not reveal any evidence of osteomyelitis
Further recommendations as additional data is returned.
����������������������������������������������������������
Chief Complaint
-: Other (Right foot infection)
Subjective / Review of Systems
Patient seen and examined. Overall feels well. Denies specific complaints. No fevers or chills. No foot pain.
Vital Signs / Physical Exam
Vital Signs
Vital Signs
Temp Pulse Resp BP Pulse Ox
97.5 F 58 18 118/49 100
05/31/25 07:41 05/31/25 08:19 05/31/25 08:19 05/31/25 06:00 05/31/25 08:19
Physical Exam
Constitutional: No Acute Distress, Comfortable, Chronically Ill and Non-toxic
Eyes: Sclera Anicteric
Cardiovascular: S1/S2; Negative S3/S4
Pulmonary: Clear and Non Labored
Gastrointestinal: Soft, Non Tender and Non Distended
Wound: Other (Right medial foot wound with dressing in place. Strikethrough on dressing. No significant periwound erythema.)
Neurological: Awake and Alert
Objective Data
Lab Data
Lab Results
05/31/25 03:32
05/31/25 03:32
PT 20.6 Sec (11.4-14.6) H 05/29/25 16:48
INR 1.75 05/29/25 16:48
APTT 64.6 Sec (23.4-35.0) H 05/29/25 16:48
Estimated Creat Clear 35 ml/min 05/31/25 03:32
Total Bilirubin 0.6 mg/dl (0.2-1.3) 05/31/25 03:32
AST 26 U/L (14-36) 05/31/25 03:32
ALT 19 U/L (0-35) 05/31/25 03:32
Alkaline Phosphatase 133 U/L (38-126) H 05/31/25 03:32
Most recent labs reviewed.
Micro Results:
05/29/25 13:43 Blood Culture - Preliminary
Blood/Venous No Growth in 24 hours- Final report to follow
05/29/25 13:34 Blood Culture - Preliminary
Blood/Venous No Growth in 24 hours- Final report to follow
05/30/25 09:40 Wound Culture - Pending
Foot - Right Gram Stain - Preliminary
05/30/25 09:40 Anaerobic Culture - Pending
Foot - Right
05/29/25 13:07 Respiratory Culture - Preliminary
Sputum Usual Respiratory Odalis
Gram Stain - Preliminary
Imaging:
05/29/2025 CT head without contrast: no evidence of acute intracranial abnormality. Please see full dictation for additional detail.
--- NOTE | 2025-05-31 09:21 | W.PN.HOSP.TC ---
Today's Communication/Plan
-
AED
Assessment / Plan
Assessment / Plan
Gen-awake, alert, appears chronically ill, NAD
HEENT-NC, AT, anicteric, clear oral mm
Neck-supple
CV-reg, no M, +S1/S2
Lungs-rhonchi bilaterally
Abd-soft, NT, ND
Ext-no edema
Musculoskeletal-no cyanosis, clubbing, right Charcot foot with dressing on ankle and examined ulcer
Skin-warm and dry, ulcer on right foot
Neuro-grossly non-focal
Psych-calm, cooperative
A/P:
Acute Encephalopathy -suspect due to seizures, hypercapnia, possibly medications, currently in IMU. Onset of symptoms presumably 11/ AM while in Rehab.
Line Service Supervisor following, recommendation to transfer out of IMU.
Differential diagnosis of cefepime induced encephalopathy, seizures. MRI no acute abnormality but small meningioma.
New onset seizures/status epilepticus - mental status somewhat improved with Keppra, Valium. However, remains encephalopathic overall.
Neurology following. Ceribell device on head.
CT head without acute disease. Does show 4mm decreased density within the periventricular white matter of the left frontal lobe, likely a small old white matter infarct. Mild diffuse atrophy. Mild periventricular leukomalacia.
Brain MRI with/without results reviewed.
Shock -present on admission, improved. Unclear etiology. Differential diagnosis of sepsis versus cardiogenic versus other. Check cortisol level. Has not required vasopressors so far. MAP is 65 this morning.
Acute hypoxic/hypercapnic respiratory failure -present on admission. ABG noted, pCO2 66. Required BiPAP day before yesterday and night before last night. Taken off of BiPAP, now on 4 L nasal cannula.
Admission chest x-ray showed clear lungs. Enlarged cardiac silhouette. Echocardiogram shows increased right-sided pressures which begs the question of VTE. Pulmonary feels that we can probably do a nuclear scan down the road.
GINI -suspect due to volume depletion. Creatinine noted to be 1.2 on 05/27, 2.0 on admission, 1.5 today. Check urinalysis. Hold diuretics. IV fluids ordered. Contraction alkalosis noted.
Troponin elevation -suspect acute nonischemic myocardial injury due to acute illness. No reports of chest pain or shortness of breath. EKG shows sinus rhythm with occasional PVCs. Nonspecific ST abnormality.
CAD/CABG -daughter states bypass surgery was approximately 15 years ago, two-vessel. Details unclear.
Chronic heart failure, unknown type -hold Bumex for GINI. Appears volume depleted. Daughter states she lost approximately 20 pounds in the hospital, treated with IV Bumex for heart failure exacerbation. Records have been requested.
Atrial fibrillation -unknown type. On chronic anticoagulation, Eliquis.
DM 2 without hyperglycemia -hold metformin. Use low resistance NovoLog scale. Check hemoglobin A1c. Hold oral agents.
Hypothyroidism -continue levothyroxine. TSH 1.1.
Chronic anemia -normocytic. Presumably due to chronic inflammation. Monitor for now.
Right ankle wound/osteomyelitis/Charcot foot -underwent debridement at [facility] recently. Details unknown. Records requested. Apparently was on cefepime and discharged to rehab on this antibiotic. Holding cefepime for
encephalopathy, seizures, ID consulted. Blood cultures pending. Leukocytosis resolved. Afebrile here.
PAD -with multiple toe amputations in the past per family.
Full code
Total time spent on today's encounter was 52 minutes which included time spent in counseling the patient/family regarding diagnosis and treatment plan as listed above, goals of care, and symptom management. Case was discussed with nursing staff,
specialists, and care coordinators/case management. All labs and imaging personally reviewed by me. Remainder the time spent in detailed review of previous records, lab data, imaging, and other medical provider documentation.
Anticipated Discharge: > 48 hours
Subjective/Interval History
-
Date of Service: May 31, 2025
Patient alert, frail overall, on supplemental oxygen
Objective Data
-
Labs:
Laboratory Results
05/31/25
03:32
WBC 9.3
Hgb 8.6 L
Hct 30.5 L
Plt Count 197
Sodium 137
Potassium 4.3
Chloride 101
Carbon Dioxide 30
BUN 58 H
Creatinine 1.5 H
Glucose 173 H
Calcium 8.7
Total Bilirubin 0.6
AST 26
ALT 19
Alkaline Phosphatase 133 H
Vital Signs:
Vital Signs
Temp Pulse Resp BP Pulse Ox
97.5 F 58 18 118/49 100
05/31/25 07:41 05/31/25 08:19 05/31/25 08:19 05/31/25 06:00 05/31/25 08:19
I&O
05/30/25 05/31/25 06/01/25
05:59 06:59 06:59
Intake Total 1700 / 1800 560 / 560
Output Total 900 / 900 1025 / 1025
Balance 800 / 900 -465 / -465
--- NOTE | 2025-05-31 12:48 | WOUNDNOTE ---
R MEDIAL FOOT WITH BLUE SUTURE
--- NOTE | 2025-05-31 12:49 | WOUNDNOTE ---
SACRUM AND BUTTOCKS
[2025-05-31 12:50] LABS: Glucose - Point of Care 162 mg/dl (70-99)
--- NOTE | 2025-05-31 12:50 | WOUNDNOTE ---
SACRUM -CLOSER VIEW
[2025-05-31] MEDS: NOVOLOG FLEXPEN-LOW RESISTANCE 1 UNITS SC (13:05)
--- NOTE | 2025-05-31 13:15 | WOUNDNOTE ---
[facility] RN note: Patient admitted with seizure
See [facility]
PMH:Atrial fibrillation, essential hypertension,Hypothyroidism,DM 2,PAD,Hyperlipidemia,Right ankle osteomyelitis/wound had I&D done at [facility](waiting on reports),Chronic anemia,History of stroke,Cataracts
Past Surgical History:CABGx2,Cataract, R toe amputations and Right Ankle debridement
Wound Location and type/assessment: Patient admitted with:R medial foot surgical wound, pink base with moderate snider slough, no tunnels or undermining noted. Blue suture visible, no odor and anaerobic culture pending. Foot is warm and swollen, +
Audible pedal pulse with Doppler. R lateral foot with what appears to be an old surgical site, hard dry callus with dried blood underneath. R anterior foot/ankle with dark red yane. Patient confirmed she has had patience wraps used in past, suspect and
abrasion from patience wrap. Dr. Torres at bedside and assessed wounds. Patient turned to side with assist of nurse Disa. Heels are intact, sacrum with evolving DTI, dark maroon center and light red surrounding. Tiny opening in center with scant drainage.
Appetite: Good, confirmed with nurse, encouraged protein in diet.
Pressure redistribution devices in place: Continue air mattress if transferred off floor. Turning schedule, pillow under calves, air cushion on pillow under R foot. Pressure ulcer prevention measures reviewed with patient, states she understands.
Air cushion when sitting, recommend limit time in chair to meals only.
Plan: Local wound care applied with silicone foams to most wounds. Mesalt dressing to R medial foot and Surgigrip knee high approved by Dr. Torres. Called [employer] for supply. Updated care plan, nurse and will follow as needed.
Note to case management of equipment requested for discharge: Air mattress and offloading cushion
Recommend follow up at wound care center upon discharge. Follow up with surgeon.
[2025-05-31] MEDS: MIRALAX 17 GRAMS PO (15:59)
--- NOTE | 2025-05-31 16:00 | PTCARENOTE ---
Plan discussed with attending Dr. Torres, orders rec'd, pt downgraded to telemetry. Pt was seen by wound RN Samira, orders rec'd for wound care. Pt remains AOx2, drowsy, easily arousable. Chronic pain medicated with PRN Morphine with good result, see
MAR for details. Safe environment ongoing.
--- NOTE | 2025-05-31 16:25 | CM ---
Keppra IV, Wean FiO2. Discharge POC: Await therapy eval.
[2025-05-31 17:14] LABS: Glucose - Point of Care 125 mg/dl (70-99)
[2025-05-31] MEDS: DILAUDID 0.5 MG IV ×2 (19:42→23:58)
[2025-05-31] MEDS: SENOKOT 8.6 MG PO (19:43)
[2025-05-31 21:15] LABS: Glucose - Point of Care 181 mg/dl (70-99)
[2025-05-31] MEDS: DILAUDID 0.25 MG IV (21:48)
[2025-06-01] VITALS (9 sets, daily range): BP systolic 103–135; BP diastolic 42–60; PULSE 74; BMI 26.0
[2025-06-01 03:43] LABS: Hematocrit 28.7 % (37.0-47.0); Hemoglobin 8.1 g/dL (12.0-16.0); Mean Corp Hgb Conc. 28.2 g/dL (33.0-37.0); Mean Corpuscular Volume 84.7 fL (81.0-99.0); Platelet Count 228 10^3/uL (130-400); Red Cell Dist. Width 19.5 % (11.5-14.5)
[2025-06-01 04:06] LABS: Blood Urea Nitrogen 45 mg/dl (7-17); Calcium 8.9 mg/dl (8.4-10.2); Carbon Dioxide 33 mmol/L (22-30); Chloride 103 mmol/L (98-107); Estimated Creatinine Clearance 47 ml/min; Glucose 146 mg/dl (70-99); Potassium 4.0 mmol/L (3.5-5.1); Sodium 141 mmol/L (135-145); eGFR 53.72
[2025-06-01] MEDS: DILAUDID 0.5 MG IV ×3 (04:49→12:56)
[2025-06-01] MEDS: SYNTHROID 50 MCG PO (06:45)
[2025-06-01] MEDS: DUONEB 3 ML INH ×4 (07:14→20:47)
[2025-06-01] MEDS: SODIUM CHLORIDE 3% FOR INHALATION 1 VIAL INH ×2 (07:14→20:47)
[2025-06-01] MEDS: PULMICORT 0.5 MG INH ×2 (07:14→20:47)
--- NOTE | 2025-06-01 07:27 | W.PN.INTV ---
Today's Communication / Plan
Recommendations
Observe off antibiotics
Continue nebulizers
Eliquis continues
Increase activity
BiPAP as needed
Wean FiO2
Assessment
-
69-year-old female with history of heart failure, atrial fibrillation on chronic anticoagulation, coronary disease with bypass surgery, suspected COPD with history of smoking, recently hospitalized for 1 month at [facility] for heart
failure, diagnosed with history of stroke, right ankle osteomyelitis discharged on antibiotics to rehabilitation 05/25, now presents with progressive worsening mental status found to have status epilepticus. Patient mated to ICU after loading of
Keppra, treated with diazepam
Acute status epilepticus
Change in mental status progressive
Waxing and waning mental status over the past few weeks per daughter
Tremulous
97% seizure burden per Ceribell
Improved with treatment
Coarse rhonchi, crackles
Recent hospitalization for heart failure April 2025
[facility]
Right ankle osteomyelitis
On antibiotics
History of right toe amputation in the past
Apparently had a PICC line in the right upper extremity in October 2024 for chronic infection
History of left buttock abscess
Anemia, hemoglobin 8.9
History of chronic anemia
Conditions present prior to admission
Coronary disease history of bypass surgery 2009
Multiple stents at various times per daughter
Hypertension/hyperlipidemia
Atrial fibrillation on anticoagulation
Diabetes
Poorly controlled per daughter, elevated hemoglobin A1c
Hypothyroidism
Peripheral arterial disease
No procedures. Daughter
History of stroke
Suspected sleep disordered breathing
[id number] history of smoking, quit 2004
Plan/recommendations
Respiratory status has improved a bit
Continue supplemental oxygen as needed-attempt to wean
Nebulizers continue
BiPAP as needed-begin to liberate-continue at night
Aspiration precautions
COPD suspected with [id number] smoking history
Chest percussion with support bed
Chest x-ray 05/31/2025-increased vascular congestion and interstitial edema, new small area of airspace opacification right upper lobe
Monitor for seizures-no recurrence
Keppra load completed
Ativan as needed
Neurology following
Brain MRI noted 05/30/2025-no acute intracranial abnormalities, 9 mm meningioma, mild atrophy
Cultures reviewed
Infectious disease following-continue to observe off antibiotics
Antibiotics on hold
Monitor wounds
Echocardiogram 05/31/2025-EF 55-60%, dilated RV, PA systolic estimated 97
Eventual VQ scan for chronic venous thromboembolic disease-note patient on chronic Eliquis
Elevated creatinine prohibits CT chest with PE
DVT prophylaxis-on Eliquis
Nutrition
Early mobilization
Patient stable for transfer to telemetry-pulmonary will follow
Subjective Dataa
Subjective Data
Date of Service:
Date of Service: June 01, 2025
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
Subjective:
Tolerated BiPAP, feels better, less short of breath, no chest pain, abdominal pain
Review of Systems
General: Other (Per HPI)
Objective Data
Data Reviewed
Vital Signs / I&O / Oxygen:
Vital Signs
Temp Pulse Resp BP Pulse Ox
97.9 F 72 18 126/43 96
06/01/25 07:24 06/01/25 07:17 06/01/25 07:17 06/01/25 04:00 05/31/25 20:45
Intake and Output
05/31/25 06/01/25 06/02/25
06:59 06:59 06:59
Intake Total 560 / 560 460 / 460
Output Total 1025 / 1025 1620 / 1620
Balance -465 / -465 -1160 / -1160
SaO2 96
Nasal Cannula flow liters per 1
minute
Physical Exam
General: Respiratory Distress (n), Comfortable and Other (Right upper extremity midline)
HEENT: Normocephalic
Cardiovascular: Regular Rhythm, Murmur (2/6 systolic murmur) and Rub (n)
Respiratory: Wheeze (n), Crackles (Few posteriorly), Rhonchi (few), Non-Labored Respirations and Stridor (n)
GI: Soft, Non Distended (Obese) and Non Tender
Neurology: Awake, Alert and No Motor Deficits
Skin: Warm, Good Color, Cyanosis (n), Jaundice (n), Rash (n) and Other (Right medial ankle wound, erythematous with stitch in place. Sacral decubitus ulcer)
Labs/Micro/Reports
Lab Data
06/01/25 03:28
06/01/25 03:28
Microbiology
05/29/25 13:34 Blood/Venous Blood Culture - Preliminary
No Growth in 48 hours- Final report to follow
05/29/25 13:43 Blood/Venous Blood Culture - Preliminary
No Growth in 48 hours- Final report to follow
05/30/25 09:40 Foot - Right Anaerobic Culture - Preliminary
Culture pending. Anaerobic cultures are examined after 3
days incubation. Additional information to follow.
05/30/25 09:40 Foot - Right Wound Culture - Preliminary
No growth
05/30/25 09:40 Foot - Right Gram Stain - Preliminary
05/29/25 13:07 Sputum Respiratory Culture - Final
Usual Respiratory Odalis
05/29/25 13:07 Sputum Gram Stain - Final
[2025-06-01 08:53] LABS: Glucose - Point of Care 116 mg/dl (70-99)
[2025-06-01] MEDS: ASPIR LOW (ENTERIC COATED) 81 MG PO (08:56)
[2025-06-01] MEDS: KEPPRA 500 MG IV (08:56)
[2025-06-01] MEDS: MIRALAX 17 GRAMS PO (08:56)
[2025-06-01] MEDS: SENOKOT 8.6 MG PO ×2 (08:56→19:53)
[2025-06-01] MEDS: ELIQUIS 5 MG PO ×2 (08:56→19:53)
--- NOTE | 2025-06-01 08:58 | W.PN.HOSP.TC ---
Addendum entered and electronically signed by Reji Torres MD 06/01/25 15:29:
Toxic metabolic encephalopathy
Original Note:
Today's Communication/Plan
-
AED. Pain control.
Assessment / Plan
Assessment / Plan
Gen-awake, alert, appears chronically ill, NAD
HEENT-NC, AT, anicteric, clear oral mm
Neck-supple
CV-reg, no M, +S1/S2
Lungs-rhonchi bilaterally
Abd-soft, NT, ND
Ext-no edema
Musculoskeletal-no cyanosis, clubbing, right Charcot foot with dressing on ankle and examined ulcer
Skin-warm and dry, ulcer on right foot
Neuro-grossly non-focal
Psych-calm, cooperative
A/P:
Acute Encephalopathy -suspect mainly due to seizures, unclear etiology but possible medications. Updated daughter over the phone today.
New onset seizures/status epilepticus -on Keppra 100 mg twice daily. On IV Ativan as needed. MRI of the brain unremarkable for acute finding but meningioma that is not causing issues.
Chronic pain with opiate dependence-restart fentanyl patch home doses, oral morphine, and continue IV Dilaudid as needed.
Shock -present on admission, resolved. Hemodynamically stable
Acute hypoxic/hypercapnic respiratory failure -present on admission. On 2 L of oxygen currently. 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
GINI -creatinine back to 1.1 today (creatinine peaked at 2).
Troponin elevation -due to nonischemic myocardial injury due to acute illness.
CAD/CABG -daughter states bypass surgery was approximately 15 years ago, two-vessel. Details unclear.
Chronic heart failure, unknown type -hold Bumex for GINI. Appears volume depleted. Daughter states she lost approximately 20 pounds in the hospital, treated with IV Bumex for heart failure exacerbation. Records have been requested.
Atrial fibrillation -unknown type. On chronic anticoagulation, Eliquis.
DM 2 without hyperglycemia -hold metformin. Use low resistance NovoLog scale. Check hemoglobin A1c at 7.3. Hold oral agents.
Hypothyroidism -continue levothyroxine. TSH 1.1.
Chronic anemia -normocytic. Presumably due to chronic inflammation. Monitor for now.
Right ankle wound/osteomyelitis/Charcot foot -underwent debridement at [facility] recently. Details unknown. Records requested. Apparently was on cefepime and discharged to rehab on this antibiotic. Holding cefepime for
encephalopathy, seizures, ID consulted. Blood cultures pending. Leukocytosis resolved. Afebrile here. Defer to ID for antibiotics
PAD -with multiple toe amputations in the past per family.
Full code
Total time spent on today's encounter was 52 minutes which included time spent in counseling the patient/family regarding diagnosis and treatment plan as listed above, goals of care, and symptom management. Case was discussed with nursing staff,
specialists, and care coordinators/case management. All labs and imaging personally reviewed by me. Remainder the time spent in detailed review of previous records, lab data, imaging, and other medical provider documentation.
Anticipated Discharge: 24 - 48 hours
Subjective/Interval History
-
Date of Service: June 01, 2025
Patient alert. Does complain of significant amount of pain and states that she takes narcotics and regular and scheduled basis.
Objective Data
-
Labs:
Laboratory Results
06/01/25
03:28
WBC 8.1
Hgb 8.1 L
Hct 28.7 L
Plt Count 228
Sodium 141
Potassium 4.0
Chloride 103
Carbon Dioxide 33 H
BUN 45 H
Creatinine 1.1 H
Glucose 146 H
Calcium 8.9
Vital Signs:
Vital Signs
Temp Pulse Resp BP Pulse Ox
97.9 F 72 18 126/43 96
06/01/25 07:24 06/01/25 07:17 06/01/25 07:17 06/01/25 04:00 05/31/25 20:45
I&O
05/31/25 06/01/25 06/02/25
06:59 06:59 06:59
Intake Total 560 / 560 460 / 460
Output Total 1025 / 1025 1620 / 1620
Balance -465 / -465 -1160 / -1160
[2025-06-01] MEDS: NOVOLOG FLEXPEN-LOW RESISTANCE SC ×2 (08:59→17:21)
--- NOTE | 2025-06-01 11:15 | W.PN.ID1 ---
Date of Service
Date of Service: June 01, 2025
Today's Communication
Continue to observe off antibiotics. Await cultures. Await records from outside hospital.
Assessment / Plan
Acute encephalopathy
Reported new onset seizure
Right foot osteomyelitis; currently on prolonged course of cefepime
Leukocytosis with left shift
Renal insufficiency (current est CrCl = 27)
A-fib
HTN
Hypothyroidism
DM 2
PAD
HLD
Right foot osteomyelitis / chronic wound wound
Chronic anemia
Hx CVA
Cataracts
Recommendations:
Currently holding on antibiotics given the possibility of medication�induced encephalopathy (secondary to cefepime). Overall mentation appears improved/resolved.
Records from [facility] requested 05/29/2025. Still awaiting acquisition and will then review to decide on further antimicrobial selection. I have asked the Forester Aide to refax requisition form
Monitor white count temperature curve.
Deep culture of the right foot wound obtained. Results pending.
X-ray of the right foot does not reveal any evidence of osteomyelitis
Further recommendations as additional data is returned.
����������������������������������������������������������
Chief Complaint
-: Other (Right foot infection)
Subjective / Review of Systems
Review of Systems: No Fever and No Chills
Vital Signs / Physical Exam
Vital Signs
Vital Signs
Temp Pulse Resp BP Pulse Ox
97.9 F 73 20 126/43 100
06/01/25 07:24 06/01/25 11:15 06/01/25 11:15 06/01/25 04:00 06/01/25 11:15
Physical Exam
Constitutional: No Acute Distress, Comfortable, Chronically Ill and Non-toxic
Eyes: Sclera Anicteric
Cardiovascular: S1/S2; Negative S3/S4
Pulmonary: Clear and Non Labored
Gastrointestinal: Soft, Non Tender and Non Distended
Wound: Other (Right medial foot wound with dressing in place. Strikethrough on dressing. No significant periwound erythema.)
Neurological: Awake and Alert
Objective Data
Lab Data
Lab Results
06/01/25 03:28
06/01/25 03:28
PT 20.6 Sec (11.4-14.6) H 05/29/25 16:48
INR 1.75 05/29/25 16:48
APTT 64.6 Sec (23.4-35.0) H 05/29/25 16:48
Estimated Creat Clear 47 ml/min 06/01/25 03:28
Total Bilirubin 0.6 mg/dl (0.2-1.3) 05/31/25 03:32
AST 26 U/L (14-36) 05/31/25 03:32
ALT 19 U/L (0-35) 05/31/25 03:32
Alkaline Phosphatase 133 U/L (38-126) H 05/31/25 03:32
Most recent labs reviewed.
Micro Results:
05/30/25 09:40 Anaerobic Culture - Preliminary
Foot - Right Culture pending. Anaerobic cultures are examined after 3
days incubation. Additional information to follow.
05/30/25 09:40 Wound Culture - Preliminary
Foot - Right No growth
Gram Stain - Preliminary
05/29/25 13:34 Blood Culture - Preliminary
Blood/Venous No Growth in 48 hours- Final report to follow
05/29/25 13:43 Blood Culture - Preliminary
Blood/Venous No Growth in 48 hours- Final report to follow
05/29/25 13:07 Respiratory Culture - Final
Sputum Usual Respiratory Odalis
Gram Stain - Final
Imaging:
05/30/2025 Right ankle x-ray: there is no acute fracture, dislocation or suspicious osseous abnormalities. Prominent posterior and plantar calcaneal spurs. There appears to be a prior partial lateral amputation within the foot. No appreciable soft
tissue swelling.
05/29/2025 CT head without contrast: no evidence of acute intracranial abnormality. Please see full dictation for additional detail.
--- NOTE | 2025-06-01 11:23 | PN.CDI ---
CDI
- -
CDI:
Physician Documentation Request
Admit Date: 05/29/25 12:18
Dear Doctor,
Patient admitted for seizures.
05/31 Hospitalist PN: 'Acute Encephalopathy -suspect due to seizures, hypercapnia, possibly medications, currently in IMU...New onset seizures/status epilepticus - mental status somewhat improved with Keppra, Valium. However, remains encephalopathic
overall.'
Based on the above, could you clarify in the Progress Notes and Discharge Summary which, if any of the following, is the most likely type of encephalopathy:
Metabolic encephalopathy
Toxic metabolic encephalopathy
Other
Unable to determine
Use of terms such as suspected, likely, concern for, or probable (associated with a specific diagnosis that is being evaluated, monitored, or treated as if it exists) are acceptable and can be coded in the inpatient setting, when documented at the
time of discharge.
Thank you,
Kathleen Melgar RN, BSN
CDI Specialist
Available via [employer] text
Please use your independent medical judgment in providing your response.
[2025-06-01] MEDS: REMOVE DURAGESIC PATCH 75 PATCH REMOVE (12:45)
[2025-06-01 12:54] LABS: Glucose - Point of Care 179 mg/dl (70-99)
[2025-06-01] MEDS: NOVOLOG FLEXPEN-LOW RESISTANCE 1 UNITS SC (14:13)
[2025-06-01] MEDS: MORPHINE SULFATE 30 MG PO ×3 (14:52→23:58)
--- NOTE | 2025-06-01 16:00 | PTCARENOTE ---
Received pt. @ change of shift. Assessment per charting- see flow sheet. Pt. reports ongoing uncontrolled pain; relayed to Dr. Torres and pain regimen changed back to home medications- see SEP. Pt. OOB to chair x3 H w assist x2; back to bed and
assisted w active repositioning. Call gonsalez remains w in reach.
--- NOTE | 2025-06-01 16:40 | PTCARENOTE ---
Continue care from the previous RN, Pt A&Ox2, slow speech/response, Flat affect at times, c/o generalized pain, NSR, BP WNL, 2L NC, Regular diet, Mariscal in place indicated for retention, pending removal 06/02 @06:00.
[2025-06-01 17:16] LABS: Glucose - Point of Care 149 mg/dl (70-99)
[2025-06-01] MEDS: NEURONTIN 400 MG PO ×2 (17:49→21:58)
--- NOTE | 2025-06-01 19:16 | PTCARENOTE ---
on assessment pt AAOx3, c/o pain to R foot, generalized weakness, SR on the monitor, + doppler pulses, 2L NC, BIPAP HS, reg diet, hargrove due to be removed tomorrow, RUE midline, pt eating dinner, call gonsalez in reach
[2025-06-01] MEDS: KEPPRA 500 MG PO (19:53)
[2025-06-01 22:34] LABS: Glucose - Point of Care 135 mg/dl (70-99)
[2025-06-02] VITALS (9 sets, daily range): BP systolic 90–118; BP diastolic 40–89; BMI 26.1
[2025-06-02] MEDS: MORPHINE SULFATE PO (04:08)
[2025-06-02] MEDS: SYNTHROID 50 MCG PO (04:10)
[2025-06-02 04:24] LABS: Blood Urea Nitrogen 35 mg/dl (7-17); Calcium 8.7 mg/dl (8.4-10.2); Carbon Dioxide 37 mmol/L (22-30); Chloride 104 mmol/L (98-107); Estimated Creatinine Clearance 58 ml/min; Glucose 106 mg/dl (70-99); Potassium 3.8 mmol/L (3.5-5.1); Sodium 144 mmol/L (135-145); eGFR > 60.00
[2025-06-02 04:36] LABS: Hematocrit 29.2 % (37.0-47.0); Hemoglobin 8.4 g/dL (12.0-16.0); Mean Corp Hgb Conc. 28.8 g/dL (33.0-37.0); Mean Corpuscular Volume 84.6 fL (81.0-99.0); Platelet Count 215 10^3/uL (130-400); Red Cell Dist. Width 19.7 % (11.5-14.5)
[2025-06-02] MEDS: PULMICORT 0.5 MG INH (07:17)
[2025-06-02] MEDS: SODIUM CHLORIDE 3% FOR INHALATION 1 VIAL INH (07:17)
[2025-06-02] MEDS: DUONEB 3 ML INH ×3 (07:17→15:49)
--- NOTE | 2025-06-02 07:27 | W.PN.INTV ---
Today's Communication / Plan
Recommendations
Antibiotics per infectious disease
BiPAP if needed-patient has been refusing
Continue nebulizers
Wean FiO2-currently on 2 L
Pulmonary will sign off-please call with questions
Assessment
-
69-year-old female with history of heart failure, atrial fibrillation on chronic anticoagulation, coronary disease with bypass surgery, suspected COPD with history of smoking, recently hospitalized for 1 month at [facility] ([facility]) for heart
failure, diagnosed with history of stroke, right ankle osteomyelitis discharged on antibiotics to rehabilitation 05/25, now presents with progressive worsening mental status found to have status epilepticus. Patient mated to ICU after loading of
Keppra, treated with diazepam
Acute status epilepticus
Change in mental status progressive
Waxing and waning mental status over the past few weeks per daughter
Tremulous
97% seizure burden per [employer]
Improved with treatment
Coarse rhonchi, crackles
Recent hospitalization for heart failure April 2025
[facility] ([facility])
Right ankle osteomyelitis
On antibiotics
History of right toe amputation in the past
Apparently had a PICC line in the right upper extremity in October 2024 for chronic infection
History of left buttock abscess
Anemia, hemoglobin 8.9
History of chronic anemia
Possible medication induced encephalopathy-cefepime
Conditions present prior to admission
Coronary disease history of bypass surgery 2009
Multiple stents at various times per daughter
Hypertension/hyperlipidemia
Atrial fibrillation on anticoagulation
Diabetes
Poorly controlled per daughter, elevated hemoglobin A1c
Hypothyroidism
Peripheral arterial disease
No procedures. Daughter
History of stroke
Suspected sleep disordered breathing
[id number] history of smoking, quit 2004
Plan/recommendations
Respiratory status continues to improve
Continue supplemental oxygen as needed-attempt to wean-now on 2 L nasal cannula-99% saturation
Nebulizers continue
BiPAP as needed-begin to liberate-continue at night-now refusing
Aspiration precautions
COPD suspected with [id number] smoking history
Chest percussion with support bed
Chest x-ray 05/31/2025-increased vascular congestion and interstitial edema, new small area of airspace opacification right upper lobe
Monitor for seizures-no recurrence
Keppra load completed
Ativan as needed
Neurology following
Brain MRI noted 05/30/2025-no acute intracranial abnormalities, 9 mm meningioma, mild atrophy
Cultures reviewed
Infectious disease following-continue to observe off antibiotics
Antibiotics on hold
Monitor wounds
Echocardiogram 05/31/2025-EF 55-60%, dilated RV, PA systolic estimated 97
Eventual VQ scan for chronic venous thromboembolic disease-note patient on chronic Eliquis
Elevated creatinine prohibits CT chest with PE
DVT prophylaxis-on Eliquis
Nutrition
Early mobilization
Respiratory status is now stabilized-pulmonary will sign off-please call with questions
Subjective Dataa
Subjective Data
Date of Service:
Date of Service: June 02, 2025
Chief Complaint: Foreign Student Adviser Follow Up and Pulmonary Follow Up
Subjective:
Overall feels better, no complaints of shortness of breath, chest pain, abdominal pain
Review of Systems
General: Other (Per HPI)
Objective Data
Data Reviewed
Vital Signs / I&O / Oxygen:
Vital Signs
Temp Pulse Resp BP Pulse Ox
97.3 F 74 18 90/40 98
06/02/25 03:11 06/02/25 07:18 06/02/25 07:18 06/02/25 04:00 06/02/25 07:18
Intake and Output
06/01/25 06/02/25 06/03/25
06:59 06:59 06:59
Intake Total 460 / 460 1140 / 1140
Output Total 1620 / 1620 540 / 540
Balance -1160 / -1160 600 / 600
SaO2 98
Nasal Cannula flow liters per 2
minute
Physical Exam
General: Respiratory Distress (n), Comfortable and Other (Right upper extremity midline)
HEENT: Normocephalic
Cardiovascular: Regular Rhythm, Murmur (2/6 systolic murmur) and Rub (n)
Respiratory: Wheeze (n), Crackles (Few posteriorly), Rhonchi (few), Non-Labored Respirations and Stridor (n)
GI: Soft, Non Distended (Obese) and Non Tender
Neurology: Awake, Alert and No Motor Deficits
Skin: Warm, Good Color, Cyanosis (n), Jaundice (n), Rash (n) and Other (Right medial ankle wound, erythematous with stitch in place. Sacral decubitus ulcer)
Labs/Micro/Reports
Lab Data
06/02/25 03:34
06/02/25 03:34
Microbiology
05/29/25 13:43 Blood/Venous Blood Culture - Preliminary
No Growth in 72 hours- Final report to follow
05/29/25 13:34 Blood/Venous Blood Culture - Preliminary
No Growth in 72 hours- Final report to follow
05/30/25 09:40 Foot - Right Anaerobic Culture - Preliminary
Culture pending. Anaerobic cultures are examined after 3
days incubation. Additional information to follow.
05/30/25 09:40 Foot - Right Wound Culture - Preliminary
No growth
05/30/25 09:40 Foot - Right Gram Stain - Preliminary
05/29/25 13:07 Sputum Respiratory Culture - Final
Usual Respiratory Odalis
05/29/25 13:07 Sputum Gram Stain - Final
[2025-06-02 08:16] LABS: Glucose - Point of Care 107 mg/dl (70-99)
[2025-06-02] MEDS: NOVOLOG FLEXPEN-LOW RESISTANCE SC ×3 (08:16→16:47)
[2025-06-02] MEDS: MORPHINE SULFATE 30 MG PO ×4 (09:04→21:20)
[2025-06-02] MEDS: NEURONTIN 400 MG PO ×3 (09:04→21:21)
[2025-06-02] MEDS: ELIQUIS 5 MG PO ×2 (09:04→21:20)
[2025-06-02] MEDS: ASPIR LOW (ENTERIC COATED) 81 MG PO (09:04)
[2025-06-02] MEDS: SENOKOT 8.6 MG PO ×2 (09:05→21:20)
[2025-06-02] MEDS: KEPPRA 500 MG PO ×2 (09:05→21:21)
[2025-06-02] MEDS: MIRALAX 17 GRAMS PO (09:05)
--- NOTE | 2025-06-02 11:20 | W.PN.ID1 ---
Date of Service
Date of Service: June 02, 2025
Today's Communication
Continue off antibiotics for today. Await records from OSH
Assessment / Plan
Acute encephalopathy
Reported new onset seizure
Right foot osteomyelitis; currently on prolonged course of cefepime
Leukocytosis with left shift
Renal insufficiency (current est CrCl = 27)
A-fib
HTN
Hypothyroidism
DM 2
PAD
HLD
Right foot osteomyelitis / chronic wound wound
Chronic anemia
Hx CVA
Cataracts
Recommendations:
Currently holding on antibiotics given the possibility of medication�induced encephalopathy (secondary to cefepime). Overall mentation appears improved/resolved.
Records from [facility] requested 05/29/2025 and obtained. Unfortunately, there are 1000 pages of labs only, and no progress notes or consultation notes. I have asked the Nuclear Technologist to refax requisition form
Monitor white count temperature curve.
Deep culture of the right foot wound obtained and showed no growth to date.
X-ray of the right foot does not reveal any evidence of osteomyelitis.
Will review outside records when obtained.
����������������������������������������������������������
Chief Complaint
-: Other (Right foot infection)
Subjective / Review of Systems
Patient seen and examined. No reported complaints at present.
Review of Systems: No Fever and No Chills
Vital Signs / Physical Exam
Vital Signs
Vital Signs
Temp Pulse Resp BP Pulse Ox
98.2 F 72 16 90/40 98
06/02/25 08:08 06/02/25 11:09 06/02/25 11:09 06/02/25 04:00 06/02/25 07:18
Physical Exam
Constitutional: No Acute Distress, Comfortable, Chronically Ill and Non-toxic
Eyes: No Conjunctival Hemorrhage
Cardiovascular: Regular Rate and S1/S2; Negative S3/S4
Pulmonary: Clear and Non Labored; Negative Rhonchi
Gastrointestinal: Soft, Non Tender and Non Distended
Extremities: Edema; Negative Erythema
Wound: Other (Right medial foot wound with dressing in place. Minimal strikethrough on dressing. No significant periwound erythema.)
Neurological: Awake and Alert
Objective Data
Lab Data
Lab Results
06/02/25 03:34
06/02/25 03:34
PT 20.6 Sec (11.4-14.6) H 05/29/25 16:48
INR 1.75 05/29/25 16:48
APTT 64.6 Sec (23.4-35.0) H 05/29/25 16:48
Estimated Creat Clear 58 ml/min 06/02/25 03:34
Total Bilirubin 0.6 mg/dl (0.2-1.3) 05/31/25 03:32
AST 26 U/L (14-36) 05/31/25 03:32
ALT 19 U/L (0-35) 05/31/25 03:32
Alkaline Phosphatase 133 U/L (38-126) H 05/31/25 03:32
Most recent labs reviewed.
Micro Results:
05/30/25 09:40 Wound Culture - Preliminary
Foot - Right No growth
Gram Stain - Preliminary
05/30/25 09:40 Anaerobic Culture - Preliminary
Foot - Right NO ANAEROBES ISOLATED
05/29/25 13:43 Blood Culture - Preliminary
Blood/Venous No Growth in 72 hours- Final report to follow
05/29/25 13:34 Blood Culture - Preliminary
Blood/Venous No Growth in 72 hours- Final report to follow
05/29/25 13:07 Respiratory Culture - Final
Sputum Usual Respiratory Odalis
Gram Stain - Final
Imaging:
05/30/2025 Right ankle x-ray: there is no acute fracture, dislocation or suspicious osseous abnormalities. Prominent posterior and plantar calcaneal spurs. There appears to be a prior partial lateral amputation within the foot. No appreciable soft
tissue swelling.
05/29/2025 CT head without contrast: no evidence of acute intracranial abnormality. Please see full dictation for additional detail.
[2025-06-02 12:22] LABS: Glucose - Point of Care 169 mg/dl (70-99)
--- NOTE | 2025-06-02 12:26 | PTCARENOTE ---
Received pt @ change of shift. Pt. drowsy, awakens to verbal stim; Ox3; forgetful/anx @ x's. SR on monitor. Pt. w episode of desaturation of RA down high 60's; 2LNC reapplied and pt. recovered back into 90's. Auscultated dim breath sounds
throughout. +BS, abd soft/round/obese. Tolerating reg diet;poor alba. Cont BM. Mariscal removed @ 1200; DTV @ 1800. Mx wound dressings c/d/i. R midline and PIV patent and dressings c/d/i. Pt. assisted OOB to chair x2 w RW @ 1200; tolerating chair
position. Pt. instructed on how to report care concerns and call gonsalez placed w in reach.
--- NOTE | 2025-06-02 12:57 | W.PN.HOSP.TC ---
Today's Communication/Plan
-
See plan
Assessment / Plan
Assessment / Plan
Gen-awake, alert, appears chronically ill, NAD
HEENT-NC, AT, anicteric, clear oral mm
Neck-supple
CV-reg, no M, +S1/S2
Lungs-rhonchi bilaterally
Abd-soft, NT, ND
Ext-no edema
Musculoskeletal-no cyanosis, clubbing, right Charcot foot with dressing on ankle and examined ulcer
Skin-warm and dry, ulcer on right foot
Neuro-grossly non-focal
Psych-calm, cooperative
A/P:
Acute Encephalopathy -suspect mainly due to seizures, unclear etiology but possible medications. Updated daughter over the phone yesterday. Reviewed old records quite extensive but only labs and no notes.
New onset seizures/status epilepticus -on Keppra 100 mg twice daily. On IV Ativan as needed. MRI of the brain unremarkable for acute finding but meningioma that is not causing issues.
Chronic pain with opiate dependence-restart fentanyl patch home doses, oral morphine, and continue IV Dilaudid as needed.
Shock -present on admission, resolved. Hemodynamically stable
Acute hypoxic/hypercapnic respiratory failure -present on admission. On 2 L of oxygen currently. 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
GINI -creatinine back to 1.1 today (creatinine peaked at 2).
Troponin elevation -due to nonischemic myocardial injury due to acute illness.
CAD/CABG -daughter states bypass surgery was approximately 15 years ago, two-vessel. Details unclear.
Chronic heart failure, unknown type -hold Bumex for GIIN. Appears volume depleted. Daughter states she lost approximately 20 pounds in the hospital, treated with IV Bumex for heart failure exacerbation. Records have been requested.
Atrial fibrillation -unknown type. On chronic anticoagulation, Eliquis.
DM 2 without hyperglycemia -hold metformin. Use low resistance NovoLog scale. Check hemoglobin A1c at 7.3. Hold oral agents.
Hypothyroidism -continue levothyroxine. TSH 1.1.
Chronic anemia -normocytic. Presumably due to chronic inflammation. Monitor for now.
Right ankle wound/osteomyelitis/Charcot foot -underwent debridement at [facility] recently. Details unknown. Records requested. Apparently was on cefepime and discharged to rehab on this antibiotic. Holding cefepime for
encephalopathy, seizures, ID consulted. Blood cultures pending. Leukocytosis resolved. Afebrile here. Defer to ID for antibiotics
PAD -with multiple toe amputations in the past per family.
Full code
Total time spent on today's encounter was 52 minutes which included time spent in counseling the patient/family regarding diagnosis and treatment plan as listed above, goals of care, and symptom management. Case was discussed with nursing staff,
specialists, and care coordinators/case management. All labs and imaging personally reviewed by me. Remainder the time spent in detailed review of previous records, lab data, imaging, and other medical provider documentation.
Anticipated Discharge: > 48 hours
Subjective/Interval History
-
Date of Service: June 02, 2025
Patient states the pain is much improved. No nausea or vomiting. Afebrile
Objective Data
-
Labs:
Laboratory Results
06/02/25
03:34
WBC 5.8
Hgb 8.4 L
Hct 29.2 L
Plt Count 215
Sodium 144
Potassium 3.8
Chloride 104
Carbon Dioxide 37 H
BUN 35 H
Creatinine 0.9
Glucose 106 H
Calcium 8.7
Vital Signs:
Vital Signs
Temp Pulse Resp BP Pulse Ox
98.1 F 82 16 118/51 97
06/02/25 11:55 06/02/25 12:00 06/02/25 12:00 06/02/25 12:00 06/02/25 12:24
I&O
06/01/25 06/02/25 06/03/25
06:59 06:59 06:59
Intake Total 460 / 460 1140 / 1140 480 / 480
Output Total 1620 / 1620 540 / 540 200 / 200
Balance -1160 / -1160 600 / 600 280 / 280
[2025-06-02 16:37] LABS: Glucose - Point of Care 125 mg/dl (70-99)
--- NOTE | 2025-06-02 17:16 | CM ---
Addendum entered by Jae Carter 06/02/25 17:30:
Discussed with patient and daughter. Returning to [facility] is preference. Daughter will be in to visit on 06/03/25 and choose 3 other preferences.
Addendum entered by Jea Carter 06/02/25 17:19:
Came to from [facility] for STR.
Original Note:
Keppra now PO, Wean FiO2. Discharge POC: Therapy recommendation for SNF. [employer] list provided. Requested at least 4 preferences.
[2025-06-02] MEDS: PULMICORT INH (19:27)
[2025-06-02] MEDS: DUONEB INH (19:27)
[2025-06-02] MEDS: SODIUM CHLORIDE 3% FOR INHALATION INH (19:28)
[2025-06-02 21:59] LABS: Glucose - Point of Care 111 mg/dl (70-99)
[2025-06-03] VITALS (9 sets, daily range): BP systolic 106–120; BP diastolic 41–50; PULSE 66; O2SAT 97
--- NOTE | 2025-06-03 00:54 | PTCARENOTE ---
Pt was bladder scanned for 424. Straight cathed for 600. Pt has not voided since hargrove was taken out at noon on 06/02. While attempting to straight cath the patient, there was a milky, white, mucous discharge noted in the perineum area. Pt was
cleaned up and the house provider was TT and made aware. New orders for a urine culture were obtained. Urine was sent to lab.
[2025-06-03] MEDS: MORPHINE SULFATE PO ×2 (01:09→06:27)
[2025-06-03 03:47] LABS: Urine Character Slightly Cloudy (Clear)
--- NOTE | 2025-06-03 05:06 | PTCARENOTE ---
PCT informed this RN that pt pulse ox was reading 79%. When entering the room the patient was very hard to arouse. The pt was not responding to verbal stimuli, and was very hard to arouse with sternal rub. This RN asked the PCT to get a set of
vitals: BP114/41, temp 98.2 oral, HR 79, RR 18. Pt seemed to be having very small absent seizures, staring off into space while talking and then closing eyes. While checking the patient there seemed to be a small amount of bloody drainage coming
from the anus. Pt states that the doctors know about this and she is supposed to be getting surgery for it. House provider was TT and asked to come and assess the pt. This RN increased the O2 to 6L due to hypoxia. Pt is now on 4L O2 and satting at
94%. Will continue to monitor.
--- NOTE | 2025-06-03 05:29 | W.PN.UPDATE ---
Update Note
Progress Note Update
~ 4 am RN TT'd to evaluate patient. Stated patient was hard to arouse from sleep used sternal rub and then she did wake up. During conversations she would look away & fall back asleep. Patient did awaken fully after a few minutes.
Patient evaluated, states that she is always hard to arouse when sleeping and she is still tired. Patient answering questions appropriately, Ox3, HR reg, Lungs clear, +BS. Denies any symptoms such as SOB, dizziness, lethargy.
Vital signs: BP 114/41, HR 74, temp 98.2 axillary, O2 79% on 2 L, resp 18, increased O2 to 6L NC, sat 92%, ordered CXR. Patient weaned down to 4L NC, sat 90% at end of evaluation.
RN noted bloody discharge from patient's rectum, approximately 10 mls. Patient on Eliquis, continued at this time. Patient states that doctors know about this and she is supposed to get surgery for it. AM labs due, monitor H&H.
--- NOTE | 2025-06-03 05:57 | PTCARENOTE ---
Weight was not obtained from patient because there was no scale in the bed and RN recommended patient stay in bed.
[2025-06-03 06:27] LABS: Urine Squamous Cell >30 /LPF (Few)
[2025-06-03] MEDS: SYNTHROID 50 MCG PO (06:28)
[2025-06-03 06:33] LABS: Hematocrit 31.2 % (37.0-47.0); Hemoglobin 8.6 g/dL (12.0-16.0); Mean Corp Hgb Conc. 27.6 g/dL (33.0-37.0); Mean Corpuscular Volume 86.4 fL (81.0-99.0); Nucleated Red Blood Cells % 0 %; Platelet Count 264 10^3/uL (130-400); Red Cell Dist. Width 19.3 % (11.5-14.5)
[2025-06-03 06:59] LABS: ALT (SGPT) 14 U/L (0-35); AST (SGOT) 25 U/L (14-36); Albumin 3.3 g/dl (3.5-5.0); Alkaline Phosphatase 120 U/L (38-126); Blood Urea Nitrogen 30 mg/dl (7-17); Calcium 8.7 mg/dl (8.4-10.2); Carbon Dioxide 34 mmol/L (22-30); Chloride 105 mmol/L (98-107); Estimated Creatinine Clearance 58 ml/min; Glucose 95 mg/dl (70-99); Potassium 4.2 mmol/L (3.5-5.1); Sodium 146 mmol/L (135-145); Total Protein 6.4 g/dl (6.3-8.2); eGFR > 60.00
[2025-06-03] MEDS: PULMICORT 0.5 MG INH (07:20)
[2025-06-03] MEDS: DUONEB 3 ML INH (07:20)
[2025-06-03] MEDS: SODIUM CHLORIDE 3% FOR INHALATION 1 VIAL INH (07:25)
[2025-06-03 08:07] LABS: Glucose - Point of Care 105 mg/dl (70-99)
[2025-06-03] MEDS: ELIQUIS 5 MG PO ×2 (09:03→20:30)
[2025-06-03] MEDS: MORPHINE SULFATE 30 MG PO ×4 (09:03→20:31)
[2025-06-03] MEDS: NOVOLOG FLEXPEN-LOW RESISTANCE SC ×2 (09:03→12:40)
[2025-06-03] MEDS: ASPIR LOW (ENTERIC COATED) 81 MG PO (09:03)
[2025-06-03] MEDS: SENOKOT 8.6 MG PO ×2 (09:03→20:30)
[2025-06-03] MEDS: MIRALAX 17 GRAMS PO (09:04)
[2025-06-03] MEDS: KEPPRA 500 MG PO ×2 (09:16→20:31)
[2025-06-03] MEDS: NEURONTIN 400 MG PO (09:16)
--- NOTE | 2025-06-03 10:08 | W.PN.NEURO.1 ---
Today's Communication / Plan
-
.
Neuro Assessment/Plan
Assessment
69 years old female who was brought to the ER for altered mental status. The last known normal was sometimes on 06/27/2025 as per her daughter who was present at the bedside to provide the history. The EEG was monitored with Ceribell that showed
showed seizure activity. She was loaded with Keppra 1000 mg x 1. And then an additional 500 mg of Keppra was given. The patient mental status improved significantly after receiving Keppra. There was also twitching and tremors noted that started in
the hospital but they stopped after the patient received Keppra. There is no known history of seizures.
Patient continued to have tremors and thus neurology was asked to return
Plan
Recheck EEG to determine if the patient is having seizures despite the use of antiseizure medication
Check blood work for metabolic causes to explain the patient's movements which appear to be asterixis
Hold gabapentin which appears to be potentially producing myoclonic movements
Will follow pending results
Subjective/Objective
Subjective Data
Date of Service: June 03, 2025
Patient reports that she is continue to have tremors
Objective Data
Vital Signs
Temp Pulse Resp BP Pulse Ox
36.9 C 63 18 118/49 98
06/03/25 08:12 06/03/25 08:12 06/03/25 08:12 06/03/25 08:12 06/03/25 08:12
Lab Results
06/03/25 05:51
06/03/25 05:51
PT 20.6 Sec (11.4-14.6) H 05/29/25 16:48
INR 1.75 05/29/25 16:48
APTT 64.6 Sec (23.4-35.0) H 05/29/25 16:48
Sodium 146 mmol/L (135-145) H 06/03/25 05:51
Potassium 4.2 mmol/L (3.5-5.1) 06/03/25 05:51
BUN 30 mg/dl (7-17) H 06/03/25 05:51
Glucose 95 mg/dl (70-99) 06/03/25 05:51
Calcium 8.7 mg/dl (8.4-10.2) 06/03/25 05:51
Phosphorus 6.0 mg/dl (2.5-4.5) H 05/29/25 16:48
Lns-T-Eowvechvtqj Pept 29067 pg/ml 05/29/25 10:21
Patient Allergies
Latex, Natural Rubber Allergy (Intermediate, Verified 05/29/25 10:00)
Rash
Review of Systems
-
Unable to obtain full review of systems at this time due to: Aphasia (bradyphrenic)
History Source: Patient
All other systems: Reviewed and negative
Physical Exam
-
General: No Apparent Distress, Appears Stated Age and Wearing Oxygen
Eyes: Round OU, Pe Ell Conjunctivae and No Ptosis
HEENT: Anicteric and Moist Mucous Membranes
Neck: Full Range of Motion
Respiratory: No Dyspnea
Cardiac: No JVD
GI: Non-distended
Skin: Unremarkable
Extremities: No Clubbing, No Cyanosis and No Edema
Psych: Intact Judgement/Insight
Extended Neurological Exam
Mood & Affect: Negative Affect Unremarkable (Flat)
Attention Span & Concentration: Awake, Alert, Interactive and Moderate Difficulty with 2 Step Request
Memory: Unremarkable
Tremor: Hand Tremor Absent and Head Tremor Absent
Involuntary Movement: Asterixis (Medium to high amplitude bilateral upper extremities)
Speech: Quality Unremarkable and Mildly Reduced Output
Cranial Nerve II: Left Eye: Pupillary Size Unremarkable and Visual Barragan Grossly Intact
Cranial Nerve II: Right Eye: Pupillary Size Unremarkable and Visual Barragan Grossly Intact
Cranial Nerves III, IV, : Extraocular Movement: Grossly Intact
Cranial Nerve VII: Facial Symmetry: Normal Facial Symmetry
Cranial Nerve VIII: Hearing: Unremarkable Hearing to Normal Conversational Volume
Cranial Nerve XI: Shoulder Shrug: Unremarkable
Muscle Strength, Overall: Full in Upper Extremities
Muscle Bulk & Tone: Bulk Unremarkable and Tone Unremarkable
Pronator Drift: No Drift in Upper Extremities
Touch Sensation: Unremarkable
Coordination: Pzyqfe-vqlr-akpmfi Testing Unremarkable
Data Reviewed
-
Labs: Report Reviewed
Reviewed with: Physician and Patient
Old Records: Summarized
Past History
Past History
ED Past Medical History: GERD, NIDDM and Other (Seizure 05/2025)
Medications
-
Medications:
Generic Name Dose Route Start Last Admin
Trade Name Freq PRN Reason Stop Dose Admin
Acetaminophen 650 mg 05/29/25 12:21 05/30/25 21:01
Acetaminophen 325 Mg Tablet PO 06/26/25 12:20 650 mg
Q6HPRN PRN Administration
pain
Albuterol/Ipratropium 3 ml 05/29/25 16:00 06/03/25 07:20
Ipratropium 0.5/Albuterol 3 Mg (3 Ml Ampul) INH 3 ml
R QID CRAIG Administration
Protocol
Apixaban 5 mg 05/29/25 20:00 06/03/25 09:03
Apixaban (Eliquis) 5 Mg Tablet PO 06/26/25 19:59 5 mg
BID CRAIG Administration
Aspirin 81 mg 05/30/25 08:00 06/03/25 09:03
Aspirin 81 Mg (Enteric Coated) Tablet PO 06/27/25 07:59 81 mg
DAILY CRAIG Administration
Budesonide 0.5 mg 05/29/25 20:00 06/03/25 07:20
Budesonide (Pulmicort Respules) 0.5 Mg/2 Ml INH 0.5 mg
R BID CRAIG Administration
Protocol
Dextrose 12.5 grams 05/30/25 23:10
Dextrose 50% (0.5 Grams/Ml) 50 Ml Syringe IV 06/27/25 23:09
[id number] PRN
hypoglycemia
Protocol
Fentanyl 1 patch 06/01/25 12:00 06/01/25 12:45
Fentanyl 100 Mcg/Hr Patch TRANSDERM 06/15/25 11:59 1 patch
Q72H CRAIG Administration
Gabapentin 400 mg 06/01/25 16:00 06/03/25 09:16
Gabapentin 400 Mg Capsule PO 06/29/25 15:59 400 mg
TID CRAIG Administration
Glucagon 1 mg 05/30/25 23:10
Glucagon 1 Mg Vial IM 06/27/25 23:09
PRN PRN
hypoglycemia
Protocol
Hydromorphone HCl 0.5 mg 05/31/25 18:56 06/01/25 12:56
Hydromorphone 0.5 Mg/0.5 Ml Syringe IV 06/14/25 18:55 0.5 mg
Q4HPRN PRN Administration
severe pain
Insulin Aspart 0 units 05/31/25 07:30 06/03/25 09:03
Insulin Aspart Low Resistance 300 Units/3 Ml Pen.Injctr SC 06/28/25 07:29 Not Given
AC CRAIG
Protocol
Levetiracetam 500 mg 06/01/25 20:00 06/03/25 09:16
Levetiracetam 500 Mg Regular Release Tablet PO 06/29/25 19:59 500 mg
BID CRAIG Administration
Levothyroxine Sodium 50 mcg 05/30/25 06:00 06/03/25 06:28
Levothyroxine 50 Mcg Tablet PO 06/27/25 05:59 50 mcg
DAILY@0600 CRAIG Administration
Lorazepam 0.5 mg 05/29/25 12:21 05/29/25 12:32
Lorazepam 2 Mg/Ml Vial IV 06/26/25 12:20 0.5 mg
Q4HPRN PRN Administration
seizure
Miconazole Nitrate 0 applic 05/29/25 15:32
Miconazole Powder Bottle TOPICAL 06/26/25 15:31
BIDPRN PRN
Rash
Morphine Sulfate 30 mg 06/01/25 14:00 06/03/25 09:03
Morphine 15 Mg Immediate Release Tablet PO 06/15/25 13:59 30 mg
Q4 CRAIG Administration
Patch Removal 0 patch 06/01/25 11:30 06/01/25 12:45
Remove Fentanyl Patch REMOVE 06/15/25 11:29 75 patch
Q72H CRAIG Administration
Phenol 0 spray 05/30/25 20:17
Chloraseptic (1.4% Phenol) Throat [place] PO 06/27/25 20:16
Q2HPRN PRN
throat irritation
Polyethylene Glycol 17 grams 05/31/25 16:00 06/03/25 09:04
Polyethylene Glycol Powder 17 Grams Packet PO 06/28/25 15:59 17 grams
DAILY CRAIG Administration
Sennosides 8.6 mg 05/31/25 20:00 06/03/25 09:03
Sennosides (Senokot) 8.6 Mg Tablet PO 06/28/25 19:59 8.6 mg
BID CRAIG Administration
Sodium Chloride 0.25 ml 05/29/25 12:24
Nss (Pf) 10 Ml Vial For Ativan 0.5 Mg Dose IV 06/26/25 12:23
Q4HPRN PRN
IV LORAZEPAM DILUTION
Sodium Chloride 0 flush 05/29/25 13:00
Sodium Chloride 0.9% (Flush) Syringe IV 06/26/25 12:59
PER PROTOCOL CRAIG
Sodium Chloride 1 vial 05/30/25 08:00 06/03/25 07:25
Sodium Chloride 3% For Inhalation 4 Ml Vial INH 1 vial
R BID CRAIG Administration
--- NOTE | 2025-06-03 10:16 | PTCARENOTE ---
pt c/o new blurred vision. pt predominantly leaning to right side. Dr. Torres notified and at bedside. Will monitor.
[2025-06-03 10:56] LABS: Ammonia < 9 umol/L (9-30)
--- NOTE | 2025-06-03 11:11 | PTCARENOTE ---
pt assisted back from chair to bed for eeg. moderate red blood noted on Covidien coming from rectum. bleeding not new but amount of blood is more than before according to patient. Dr. Torres notified. oncoming nurse aware.
[2025-06-03] MEDS: DUONEB INH ×3 (11:35→21:01)
--- NOTE | 2025-06-03 11:54 | W.PN.HOSP.TC ---
Today's Communication/Plan
-
Neurology reeval. GI eval.
Assessment / Plan
Assessment / Plan
Gen-awake, alert, appears chronically ill, NAD
HEENT-NC, AT, anicteric, clear oral mm
Neck-supple
CV-reg, no M, +S1/S2
Lungs-rhonchi bilaterally
Abd-soft, NT, ND
Ext-no edema
Musculoskeletal-no cyanosis, clubbing, right Charcot foot with dressing on ankle and examined ulcer
Skin-warm and dry, ulcer on right foot
Neuro-grossly non-focal
Psych-calm, cooperative
A/P:
Acute Encephalopathy -suspect mainly due to seizures, unclear etiology but possible medications. Updated daughter over the phone yesterday. Reviewed old records quite extensive but only labs and no notes.
Recent mental status changes and questionable focal weakness-doubt anything new neurologically but obtain CT of the head. Reached out to neurology to reevaluate today. Narcotics might be contributing but she is very reluctant to change doses.
Rectal bleed-suspect hemorrhoidal bleed. Will get GI on board since she is on anticoagulation and not sure if we should continue or hold. Repeat hemoglobin.
New onset seizures/status epilepticus -on Keppra 500 mg twice daily. On IV Ativan as needed. MRI of the brain unremarkable for acute finding but meningioma that is not causing issues.
Chronic pain with opiate dependence-restart fentanyl patch home doses, oral morphine, and continue IV Dilaudid as needed.
Shock -present on admission, resolved. Hemodynamically stable
Acute hypoxic/hypercapnic respiratory failure -present on admission. On 2 L of oxygen currently. Defer to pulmonary if VQ scan needed (currently on Eliquis, [employer])
GINI -creatinine back to 1.1 today (creatinine peaked at 2).
Troponin elevation -due to nonischemic myocardial injury due to acute illness.
CAD/CABG -daughter states bypass surgery was approximately 15 years ago, two-vessel. Details unclear.
Chronic heart failure, unknown type -hold Bumex for GINI. Appears volume depleted. Daughter states she lost approximately 20 pounds in the hospital, treated with IV Bumex for heart failure exacerbation. Records have been requested.
Atrial fibrillation -unknown type. On chronic anticoagulation, Eliquis.
DM 2 without hyperglycemia -hold metformin. Use low resistance NovoLog scale. Check hemoglobin A1c at 7.3. Hold oral agents.
Hypothyroidism -continue levothyroxine. TSH 1.1.
Chronic anemia -normocytic. Presumably due to chronic inflammation. Monitor for now.
Right ankle wound/osteomyelitis/Charcot foot -underwent debridement at [facility] recently. Details unknown. Records requested. Apparently was on cefepime and discharged to rehab on this antibiotic. Holding cefepime for
encephalopathy, seizures, ID consulted. Blood cultures pending. Leukocytosis resolved. Afebrile here. Defer to ID for antibiotics
PAD -with multiple toe amputations in the past per family.
Full code
Total time spent on today's encounter was 52 minutes which included time spent in counseling the patient/family regarding diagnosis and treatment plan as listed above, goals of care, and symptom management. Case was discussed with nursing staff,
specialists, and care coordinators/case management. All labs and imaging personally reviewed by me. Remainder the time spent in detailed review of previous records, lab data, imaging, and other medical provider documentation.
Anticipated Discharge: > 48 hours
Subjective/Interval History
-
Date of Service: June 03, 2025
Patient alert but generalized weakness present. RN reports right-sided weakness and facial droop but could not replicate those findings. Patient had some rectal bleeding.
Objective Data
-
Labs:
Laboratory Results
06/03/25 06/03/25
05:51 11:27
WBC 8.4
Hgb 8.6 L Pending
Hct 31.2 L Pending
Plt Count 264 D
Sodium 146 H
Potassium 4.2
Chloride 105
Carbon Dioxide 34 H
BUN 30 H
Creatinine 0.9
Glucose 95
Calcium 8.7
Total Bilirubin 0.9
AST 25
ALT 14
Alkaline Phosphatase 120
Vital Signs:
Vital Signs
Temp Pulse Resp BP Pulse Ox
97.9 F 66 15 115/45 94
06/03/25 11:00 06/03/25 11:00 06/03/25 11:00 06/03/25 11:00 06/03/25 11:00
I&O
06/02/25 06/03/25 06/04/25
06:59 06:59 06:59
Intake Total 1140 / 1140 720 / 720
Output Total 540 / 540 800 / 800
Balance 600 / 600 -80 / -80
--- NOTE | 2025-06-03 12:11 | CON.GI ---
Addendum entered and electronically signed by Julian Landaverde MD 06/03/25 15:50:
I saw and examined the patient.
The [employer]IEF [employer] OFFICER or PA's note was reviewed and I agree with the note.
Comment:
This patient is a 69-year-old woman with a history of CABG, A-fib on Eliquis who also has constipation. She has noticed some blood per rectum mainly dripping on the toilet bowl. Her hemoglobin is currently stable
abd: soft nontender
rectal as below
impression:
rectal bleeding most likely hemorrhoids
constipation with stool in vault
plan:
enema
anusol hc suppository
follow hgb
if continues without improvement then flex sig
Original Note:
Consultation
-
Date/Time Consultation Requested: 06/03/25 1130
Date/Time Consultation Performed: 06/03/25 1200
Requesting Provider: Reji Torres MD
Performing Provider: ALECIA Pitt, Julian Landaverde MD
Reason for Consultation: rectal bleeding
Medical History
Chief Complaint / HPI
History of Present Illness:
Pt is a 69yo with hx CHF, prior CABG and stents, afib on Eliquis, CVA, HTN, hyperlipidemia, hypothyroidism, chronic pain on narcotics, NIDDM, prior tobacco abuse, PAD with ankle osteo 04/2025 with admission 05/29 with change in mental status,
shock with hypotension, leukocytosis, GINI and resp failure. Per chart pt had admission to [facility] for 1 month for CHF and ankle osteo with debridement and went to [facility] on 05/25 with report of progressive decline in mental
status over last week weeks and noted twitching and tremor while in hospital. She was seen by neurology with concern for seizure and possible medication related and started on Keppra. Noted overnight 06/03 with increased with unresponsiveness.
Asked to see as also noted with rectal bleeding. In review with nursing noted with rectal bleeding last PM but also this am was in chair noted with red blood in pad without patient being aware of need to go. Pt hbg initially 10.2 with 8 range
during admission.
Pt admits to hx bleeding in past. she currently denies issues with odynophagia,dysphagia, GERD, nausea, vomiting, abdominal pain, diarrhea, constipation( pt then later admits to no stools for several days) or black stools. Pt denies vaginal
and urinary bleeding. Last colonoscopy Dr. Arreola in [facility] about 2 years ago. Denies EGD in past.
Past Medical History
Past Medical History: Arrhythmias (afib), CHF, CVA, HTN, Hypercholesterolemia, Hypothyroidism, NIDDM and Other (PAD, right ankle osteomyelitis 04/2025, cataracts, buttock abscess, chronic pain on narcotics, ? diverticular bleeding 8 years ago )
Past Surgical History: Cardiac (CABG x 2 , prior cardiac stents ) and Other (ankle debridement, prior toe amputation)
Social History
Tobacco: Former Smoker (40 years ago )
Alcohol: None
Drug: None
Personal: (spouse in December )
Living: [facility]
Employment: Retired
Family History
Family History: Other (no family hx GI issues )
Allergies / Home Medications
Allergy/AdvReac Type Severity Reaction Status Date / Time
Latex, Natural Rubber Allergy Intermediate Rash Verified 05/29/25 10:00
�Medication �Instructions �Recorded
aspirin 81 mg capsule 81 mg PO DAILY Blood Clot 10/26/24
Prevention/Tx
bumetanide 2 mg tablet 2 mg PO BID Fluid 10/26/24
Retention/Swelling
fentanyl 100 mcg/hr transdermal 1 patch transdermal Q72H Pain 10/26/24
patch
gabapentin 400 mg capsule 400 mg PO TID Pain 10/26/24
levothyroxine 50 mcg tablet 50 mcg PO DAILY Thyroid 10/26/24
metformin 500 mg tablet 1,000 mg PO BID Diabetes 10/26/24
metoprolol tartrate 25 mg tablet 50 mg PO BID Blood Pressure 10/26/24
morphine 30 mg immediate release 30 mg PO Q4H PRN pain 10/26/24
tablet
omeprazole 40 mg capsule,delayed 40 mg PO BID Gastrointestinal Issue 10/26/24
release
repaglinide 1 mg tablet 1 mg PO BID Diabetes 10/26/24
acetaminophen 325 mg tablet 650 mg PO Q6H PRN pain 05/29/25
apixaban 5 mg tablet 5 mg PO BID Blood Clot 05/29/25
Prevention/Tx
dapagliflozin propanediol 10 mg 10 mg PO DAILY Diabetes 05/29/25
tablet
Review of Systems
-
History Source: Patient
Constitutional: Reports Weight Loss (with admissions)
EENT: Reports No Symptoms
Respiratory: Reports No Symptoms
Cardiac: Reports No Symptoms
Abdomen/GI: Reports Constipated and Bloody Stools
: Reports No Symptoms
Musculoskeletal: Reports No Symptoms
Skin: Reports No Symptoms
Neurological: Reports Weakness
Endocrine: Reports No Symptoms
Hematologic/Lymphatic: Reports Bleeding
Vital Signs
Temp Pulse Resp BP Pulse Ox
97.9 F 66 15 115/45 94
06/03/25 11:00 06/03/25 11:00 06/03/25 11:00 06/03/25 11:00 06/03/25 11:00
Physical Exam
Exam
General: Other (currently awake and alert )
HEENT: Normocephalic and Anicteric
Respiratory: Clear
Cardiac: Regular Rhythm
GI: Soft, Non Tender and Non Distended
Rectal: Other (increased stool burden on exam -- limited rectal with stool amount, red blood appears to be dripping out with brown stool on exam with concern for hemorrhoidal bleeding. )
Musculoskeletal: No Clubbing and No Cyanosis
Skin: Warm and Dry
Neuro: Awake, Alert and AO x 3
Psych: Calm
Results
WBC 8.4 10^3/uL (4.8-10.8) 06/03/25 05:51
Hgb 8.6 g/dL (12.0-16.0) L 06/03/25 05:51
Hct 31.2 % (37.0-47.0) L 06/03/25 05:51
MCV 86.4 fL (81.0-99.0) 06/03/25 05:51
Plt Count 264 10^3/uL (130-400) D 06/03/25 05:51
Absolute Neuts (auto) 5.6 10^3/uL (1.4-6.5) 06/03/25 05:51
PT 20.6 Sec (11.4-14.6) H 05/29/25 16:48
INR 1.75 05/29/25 16:48
APTT 64.6 Sec (23.4-35.0) H 05/29/25 16:48
Sodium 146 mmol/L (135-145) H 06/03/25 05:51
Potassium 4.2 mmol/L (3.5-5.1) 06/03/25 05:51
Chloride 105 mmol/L (98-107) 06/03/25 05:51
Carbon Dioxide 34 mmol/L (22-30) H 06/03/25 05:51
BUN 30 mg/dl (7-17) H 06/03/25 05:51
Creatinine 0.9 mg/dL (0.6-1.0) 06/03/25 05:51
Calcium 8.7 mg/dl (8.4-10.2) 06/03/25 05:51
Total Bilirubin 0.9 mg/dl (0.2-1.3) 06/03/25 05:51
AST 25 U/L (14-36) 06/03/25 05:51
ALT 14 U/L (0-35) 06/03/25 05:51
Alkaline Phosphatase 120 U/L (38-126) 06/03/25 05:51
Hepatitis C Antibody Negative (Negative) 05/30/25 04:01
Diagnostic Image Results:
Prior GI Procedures:
EGD: none
Colonoscopy: last 2 years ago in [place]
Assessment / Plan
-
Pt is a 69yo with hx CHF, prior CABG and stents, afib on Eliquis, CVA, HTN, hyperlipidemia, hypothyroidism, chronic pain on narcotics, NIDDM, prior tobacco abuse, PAD with ankle osteo 04/2025 with admission 05/29 with change in mental status,
shock with hypotension, leukocytosis, GINI and resp failure. Per chart pt had admission to [facility] for 1 month for CHF and ankle osteo with debridement and went to [facility] on 05/25 with report of progressive decline in mental
status over last week weeks and noted twitching and tremor while in hospital. She was seen by neurology with concern for seizure and possible medication related and started on Keppra. Noted overnight 06/03 with increased with unresponsiveness.
Asked to see as also noted with rectal bleeding. In review with nursing noted with rectal bleeding last PM but also this am was in chair noted with red blood in pad without patient being aware of need to go. Pt hbg initially 10.2 with 8 range
during admission.. Pt denies vaginal and urinary bleeding. Last colonoscopy Dr. Arreola in [facility] about 2 years ago. Denies EGD in past.
-rectal bleeding
-soft fecal impaction
-afib on Eliquis
-constipation likely narcotic induced
-hx ? diverticular bleeding years ago
-change in mental status with concern for seizure on admission possible med induced
-shock/GINI/resp insufficiency on admission
other med problems:
-CHF
- prior CABG and stents
- afib on Eliquis
-CVA
-HTN
-hyperlipidemia
- hypothyroidism
-chronic pain on narcotics
-NIDDM
-hx buttock abscess
-prior tobacco abuse
- PAD with ankle osteo 04/2025
PLAN:
etiology of rectal bleeding related to hemorrhoid with blood dripping out on exam with large soft impaction of brown stool vs other
will give Dulcolax then enema to clear impaction
if increased bleeding consider flex as appears very local source
add Anusol at HS
trend hbg, transfuse <7
ok to continued diet for now
cont senna and will increased Miralax to BID-- if not improving pt will need to consider regiment with relistor vs other with likely narcotic induced constipation
will obtain prior colonoscopy from Dr. Arreola in [facility] -- per patient about 2 years ago
reviewed with nursing staff
-
-
Thank you for consultation and allowing me to participate in the patient's care. Please call the salesperson women's dresses GI physician during the after hours with any questions or concerns.
[2025-06-03 12:38] LABS: Glucose - Point of Care 108 mg/dl (70-99)
[2025-06-03 12:56] LABS: Hematocrit 31.2 % (37.0-47.0); Hemoglobin 8.7 g/dL (12.0-16.0)
[2025-06-03 13:20] LABS: Folate 17.7 ng/ml (2.76-20); Vitamin B12 641 pg/ml (239-931)
--- NOTE | 2025-06-03 14:41 | W.PN.ID1 ---
Date of Service
Date of Service: June 03, 2025
Today's Communication
Continue off antibiotics.
Assessment / Plan
Acute encephalopathy
Reported new onset seizure
Right foot osteomyelitis; currently on prolonged course of cefepime
Leukocytosis with left shift
Renal insufficiency (current est CrCl = 27)
A-fib
HTN
Hypothyroidism
DM 2
PAD
HLD
Right foot osteomyelitis / chronic wound wound
Chronic anemia
Hx CVA
Cataracts
Recommendations:
Currently holding on antibiotics given the possibility of medication�induced encephalopathy (secondary to cefepime). Overall mentation appears improved/resolved.
Records from [facility] requested 05/29/2025 and obtained. Unfortunately, there are 1000 pages of labs only, and no progress notes or consultation notes. I have asked the Director Integrated to refax requisition form.
Currently attempting to get in touch with ID service that saw the patient during previous hospitalization. Per ID follow-up at hospital, patient was last seen by LEONEL Barrientos, part of [facility] practice ([phone]).
Call placed to speak with the physician. Awaiting callback.
Monitor white count temperature curve.
Deep culture of the right foot wound obtained and showed no growth.
X-ray of the right foot does not reveal any evidence of osteomyelitis.
Will review outside records when obtained.
����������������������������������������������������������
Chief Complaint
-: Other (Right foot infection)
Subjective / Review of Systems
Patient seen and examined. Reports no significant foot pain
Review of Systems: No Fever and No Chills
Vital Signs / Physical Exam
Vital Signs
Vital Signs
Temp Pulse Resp BP Pulse Ox
97.9 F 66 15 115/45 94
06/03/25 11:00 06/03/25 11:06/03/25 11:06/03/25 11:00 06/03/25 11:00
Physical Exam
Constitutional: No Acute Distress, Comfortable, Chronically Ill and Non-toxic
Eyes: No Conjunctival Hemorrhage
Cardiovascular: Regular Rate and S1/S2; Negative S3/S4
Pulmonary: Clear and Non Labored; Negative Rhonchi
Gastrointestinal: Soft, Non Tender and Non Distended
Extremities: Edema; Negative Erythema
Wound: Other (Right medial foot wound with dressing in place. Minimal strikethrough on dressing. No significant periwound erythema.)
Neurological: Awake and Alert
Objective Data
Lab Data
Lab Results
06/03/25 12:44
06/03/25 05:51
PT 20.6 Sec (11.4-14.6) H 05/29/25 16:48
INR 1.75 05/29/25 16:48
APTT 64.6 Sec (23.4-35.0) H 05/29/25 16:48
Estimated Creat Clear 58 ml/min 06/03/25 05:51
Total Bilirubin 0.9 mg/dl (0.2-1.3) 06/03/25 05:51
AST 25 U/L (14-36) 06/03/25 05:51
ALT 14 U/L (0-35) 06/03/25 05:51
Alkaline Phosphatase 120 U/L (38-126) 06/03/25 05:51
Most recent labs reviewed.
Micro Results:
05/29/25 13:34 Blood Culture - Final
Blood/Venous No Growth - Final Report
05/29/25 13:43 Blood Culture - Final
Blood/Venous No Growth - Final Report
06/03/25 03:10 Urine Culture - Pending
Urine
05/30/25 09:40 Wound Culture - Preliminary
Foot - Right No growth
Gram Stain - Preliminary
05/30/25 09:40 Anaerobic Culture - Preliminary
Foot - Right NO ANAEROBES ISOLATED
05/29/25 13:07 Respiratory Culture - Final
Sputum Usual Respiratory Odalis
Gram Stain - Final
Imaging:
05/30/2025 Right ankle x-ray: there is no acute fracture, dislocation or suspicious osseous abnormalities. Prominent posterior and plantar calcaneal spurs. There appears to be a prior partial lateral amputation within the foot. No appreciable soft
tissue swelling.
05/29/2025 CT head without contrast: no evidence of acute intracranial abnormality. Please see full dictation for additional detail.
--- NOTE | 2025-06-03 15:07 | EEG.RPT ---
Electroencephalogram Report
Recording
Date of EE06/03/25
Type of EEG: Routine
Length of EEG recordin minutes
Done with Video Recording: Yes
Patient Status: Inpatient
Recording Conditions: Awake and Drowsy
Hyperventilation Performed: No
Photic Stimulation Performed: Yes
Report
GREATER THAN 1 HOUR EEG REPORT
GREATER THAN 1 HOUR EEG INTERPRETATION:
Moderately abnormal EEG for age in wakefulness through drowsiness due to diffuse bihemispheric slowing and frontally predominant triphasic waves.
CLINICAL CORRELATION:
This study was suggestive of diffuse cortical dysfunction without focal abnormality which may be metabolic in origin. No clear seizure activity was recorded.
Clinical correlation is advised.
METHODS:
A 21 channel digitized electroencephalogram (EEG) was performed in the Clinical Neurophysiology Laboratory. The 10/20 international system of electrode placement was used with ECG and lateral/vertical eye movements recorded. Video was recorded. The
[employer] quantitative measurement system was utilized.
QUALITY OF STUDY:
Good
ELECTROENCEPHALOGRAPHER IMPRESSION(S):
Background
There was a medium amplitude poorly organized anterior-posterior voltage gradient of theta activity at maximum
There were no significant asymmetries of background activity noted.
Sleep
Drowsiness present
Photic Stimulation
Failed to activate the record.
Abnormal EEG Activity
Frequently seen and nearly continuous were bursts of frontally predominant generalizing triphasic waves at times in trains of up to 10 seconds.
ECG
Normal sinus rhythm
--- NOTE | 2025-06-03 16:00 | WOUNDNOTE ---
WOC RN NOTE: Visited patient today for follow up on DTI of sacrum (POA). Static air overlay added to bed and clean dressing applied as ordered. Will continue to follow during in-patient stay as DTI is evolving.
[2025-06-03] MEDS: LYRICA 50 MG PO (17:01)
[2025-06-03] MEDS: DULCOLAX 10 MG RECTAL (17:01)
[2025-06-03 18:22] LABS: Glucose - Point of Care 238 mg/dl (70-99)
[2025-06-03] MEDS: NOVOLOG FLEXPEN-LOW RESISTANCE 2 UNITS SC (18:26)
[2025-06-03] MEDS: MIRALAX PO (20:31)
[2025-06-03] MEDS: SODIUM CHLORIDE 3% FOR INHALATION INH (21:01)
[2025-06-03] MEDS: PULMICORT INH (21:01)
[2025-06-03 21:08] LABS: Glucose - Point of Care 167 mg/dl (70-99)
[2025-06-03] MEDS: ANUSOL HC 25 MG RECTAL (21:42)
[2025-06-03] MEDS: LYRICA PO (21:52)
--- NOTE | 2025-06-03 22:30 | RESPNOTE ---
Patient refused Bipap
[2025-06-04] MEDS: MORPHINE SULFATE PO ×3 (01:10→13:15)
[2025-06-04 03:45] VITALS: BP 106/41
[2025-06-04] MEDS: SYNTHROID 50 MCG PO (05:46)
[2025-06-04 06:26] LABS: Hematocrit 32.7 % (37.0-47.0); Hemoglobin 9.2 g/dL (12.0-16.0); Mean Corp Hgb Conc. 28.1 g/dL (33.0-37.0); Mean Corpuscular Volume 85.8 fL (81.0-99.0); Platelet Count 260 10^3/uL (130-400); Red Cell Dist. Width 18.9 % (11.5-14.5)
[2025-06-04 06:54] LABS: Blood Urea Nitrogen 27 mg/dl (7-17); Calcium 9.1 mg/dl (8.4-10.2); Carbon Dioxide 37 mmol/L (22-30); Chloride 104 mmol/L (98-107); Estimated Creatinine Clearance 74 ml/min; Glucose 105 mg/dl (70-99); Potassium 4.7 mmol/L (3.5-5.1); Sodium 141 mmol/L (135-145); eGFR > 60.00
[2025-06-04 07:25] VITALS: BP 113/46
[2025-06-04] MEDS: SODIUM CHLORIDE 3% FOR INHALATION 1 VIAL INH ×2 (07:26→17:59)
[2025-06-04] MEDS: PULMICORT 0.5 MG INH ×2 (07:26→17:59)
[2025-06-04] MEDS: DUONEB 3 ML INH ×4 (07:26→17:59)
[2025-06-04 07:46] LABS: Glucose - Point of Care 110 mg/dl (70-99)
[2025-06-04] MEDS: NOVOLOG FLEXPEN-LOW RESISTANCE SC (07:55)
[2025-06-04] MEDS: KEPPRA 500 MG PO ×2 (07:59→20:35)
[2025-06-04] MEDS: ASPIR LOW (ENTERIC COATED) 81 MG PO (07:59)
[2025-06-04] MEDS: SENOKOT 8.6 MG PO (07:59)
[2025-06-04] MEDS: ELIQUIS 5 MG PO ×2 (07:59→20:36)
[2025-06-04] MEDS: MIRALAX 17 GRAMS PO (07:59)
[2025-06-04] MEDS: MORPHINE SULFATE 30 MG PO ×3 (08:02→20:36)
[2025-06-04] MEDS: LYRICA 50 MG PO ×3 (08:02→22:12)
--- NOTE | 2025-06-04 09:42 | W.PN.GI.CBS2 ---
Addendum entered and electronically signed by Vasu Oviedo MD 06/04/25 12:28:
I saw and examined the patient.
The PA's note was reviewed and I agree with the note.
Comment:
Pt feeling better after BMs, no further bleeding. GI s/o, call w/ questions.
Original Note:
Today's Communication / Plan
-
etiology of rectal bleeding related to hemorrhoid with blood dripping out on exam with large soft impaction of brown stool vs other
s/p 2 stools overnight
constipation has cleared and bleeding improved after BM
cont anusol for 5 days
trend hbg, transfuse <7 improved to 9.2 today
cont diet
cont bowel regiment with senna will transition to HS, miralax BID and dulcolax PRN- if not improving pt will need to consider regiment with relistor vs other with likely narcotic induced constipation
requested colonoscopy from Dr. Arreola in [facility] -- per patient about 2 years ago- report pending
clinically much improved and no further bleeding will sign off call with questions
reviewed with nursing staff
Assessment / Plan
-
Pt is a 69yo with hx CHF, prior CABG and stents, afib on Eliquis, CVA, HTN, hyperlipidemia, hypothyroidism, chronic pain on narcotics, NIDDM, prior tobacco abuse, PAD with ankle osteo 04/2025 with admission 05/29 with change in mental status,
shock with hypotension, leukocytosis, GINI and resp failure. Per chart pt had admission to [facility] for 1 month for CHF and ankle osteo with debridement and went to [facility] on 05/25 with report of progressive decline in mental
status over last week weeks and noted twitching and tremor while in hospital. She was seen by neurology with concern for seizure and possible medication related and started on Keppra. Noted overnight 06/03 with increased with unresponsiveness.
Asked to see as also noted with rectal bleeding. In review with nursing noted with rectal bleeding last PM but also this am was in chair noted with red blood in pad without patient being aware of need to go. Pt hbg initially 10.2 with 8 range
during admission.. Pt denies vaginal and urinary bleeding. Last colonoscopy Dr. Arreola in [facility] about 2 years ago. Denies EGD in past.
-rectal bleeding
-soft fecal impaction
-afib on Eliquis
-constipation likely narcotic induced
-hx ? diverticular bleeding years ago
-change in mental status with concern for seizure on admission possible med induced
-shock/GINI/resp insufficiency on admission
other med problems:
-CHF
- prior CABG and stents
- afib on Eliquis
-CVA
-HTN
-hyperlipidemia
- hypothyroidism
-chronic pain on narcotics
-NIDDM
-hx buttock abscess
-prior tobacco abuse
- PAD with ankle osteo 04/2025
PLAN:
etiology of rectal bleeding related to hemorrhoid with blood dripping out on exam with large soft impaction of brown stool vs other
s/p 2 stools overnight
constipation has cleared and bleeding improved after BM
cont anusol for 5 days
trend hbg, transfuse <7 improved to 9.2 today
cont diet
cont bowel regiment with senna will transition to HS, miralax BID and dulcolax PRN- if not improving pt will need to consider regiment with relistor vs other with likely narcotic induced constipation
requested colonoscopy from Dr. Arreola in [facility] -- per patient about 2 years ago- report pending
clinically much improved and no further bleeding will sign off call with questions
reviewed with nursing staff
Subjective
Subjective
Date of Service: June 04, 2025
11 brown stool x 2 feeling much better no further bleeding or rectal pain
Objective
Data Reviewed
Laboratory Data:
Laboratory Results
06/04/25 06:12
06/04/25 06:12
Laboratory Results
PT 20.6 Sec (11.4-14.6) H 05/29/25 16:48
INR 1.75 05/29/25 16:48
APTT 64.6 Sec (23.4-35.0) H 05/29/25 16:48
Phosphorus 6.0 mg/dl (2.5-4.5) H 05/29/25 16:48
Magnesium 2.4 mg/dl (1.6-2.3) H 05/29/25 10:59
Total Bilirubin 0.9 mg/dl (0.2-1.3) 06/03/25 05:51
AST 25 U/L (14-36) 06/03/25 05:51
ALT 14 U/L (0-35) 06/03/25 05:51
Alkaline Phosphatase 120 U/L (38-126) 06/03/25 05:51
Vital Signs and I&O:
Vital Signs
Temp Pulse Resp BP Pulse Ox
97.8 F 77 18 113/46 96
06/04/25 07:25 06/04/25 07:28 06/04/25 07:28 06/04/25 07:25 06/04/25 09:13
I&O
06/03/25 06/04/25 06/05/25
06:59 06:59 06:59
Intake Total 720 / 720 1080 / 1080
Output Total 800 / 800 1475 / 1475
Balance -80 / -80 -395 / -395
Physical Exam
Physical Exam
HEENT: Anicteric and Moist mucous membranes
Cardiology: Normal Sinus Rhythm
Pulmonary: Clear
GI: Soft, Non Distended and Non Tender
Extremities: No Edema
Neuro: Non Focal
[2025-06-04 10:53] VITALS: BP 115/48
--- NOTE | 2025-06-04 11:32 | W.PN.HOSP.TC ---
Today's Communication/Plan
-
See plan
Assessment / Plan
Assessment / Plan
Gen-awake, alert, appears chronically ill, NAD
HEENT-NC, AT, anicteric, clear oral mm
Neck-supple
CV-reg, no M, +S1/S2
Lungs-rhonchi bilaterally
Abd-soft, NT, ND
Ext-no edema
Musculoskeletal-no cyanosis, clubbing, right Charcot foot with dressing on ankle and examined ulcer
Skin-warm and dry, ulcer on right foot
Neuro-grossly non-focal
Psych-calm, cooperative
A/P:
Acute Encephalopathy -suspect mainly due to seizures, unclear etiology but possible medications. Updated daughter prior. Reviewed old records quite extensive but only labs and no notes-ID reaching out to outpatient ID.
Recent mental status changes and questionable focal weakness-doubt anything new neurologically but obtain CT of the head. Reached out to neurology to reevaluate today. Narcotics might be contributing but she is very reluctant to change doses.
Rectal bleed-suspect hemorrhoidal bleed. GI consult appreciated
New onset seizures/status epilepticus -on Keppra 500 mg twice daily. On IV Ativan as needed. MRI of the brain unremarkable for acute finding but meningioma that is not causing issues.
Chronic pain with opiate dependence-restarted fentanyl patch home doses, oral morphine, and continue IV Dilaudid as needed.
Shock -present on admission, resolved. Hemodynamically stable
Acute hypoxic/hypercapnic respiratory failure -present on admission. On 2 L of oxygen currently. Pulmonary feels VQ can be done outpatient (currently on Eliquis, CARBONIZER TESTER)
GINI -creatinine back to 0.7 today (creatinine peaked at 2).
Troponin elevation -due to nonischemic myocardial injury due to acute illness.
CAD/CABG -daughter states bypass surgery was approximately 15 years ago, two-vessel. Details unclear.
Chronic heart failure, unknown type -hold Bumex for GINI. Appears volume depleted. Daughter states she lost approximately 20 pounds in the hospital, treated with IV Bumex for heart failure exacerbation. Records have been requested.
Atrial fibrillation -unknown type. On chronic anticoagulation, Eliquis.
DM 2 without hyperglycemia -hold metformin. Use low resistance NovoLog scale. Check hemoglobin A1c at 7.3. Hold oral agents.
Hypothyroidism -continue levothyroxine. TSH 1.1.
Chronic anemia -normocytic. Presumably due to chronic inflammation. Monitor for now.
Right ankle wound/osteomyelitis/Charcot foot -underwent debridement at [facility] recently. Details unknown. Records requested. Apparently was on cefepime and discharged to rehab on this antibiotic. Holding cefepime for
encephalopathy, seizures, ID consulted. Blood cultures pending. Leukocytosis resolved. Afebrile here. Defer to ID for antibiotics
PAD -with multiple toe amputations in the past per family.
Full code
Total time spent on today's encounter was 52 minutes which included time spent in counseling the patient/family regarding diagnosis and treatment plan as listed above, goals of care, and symptom management. Case was discussed with nursing staff,
specialists, and care coordinators/case management. All labs and imaging personally reviewed by me. Remainder the time spent in detailed review of previous records, lab data, imaging, and other medical provider documentation.
Anticipated Discharge: Within 24 hours
Subjective/Interval History
-
Date of Service: June 04, 2025
Patient more alert today, less tremors, afebrile.
Objective Data
-
Labs:
Laboratory Results
06/04/25
06:12
WBC 10.7
Hgb 9.2 L
Hct 32.7 L
Plt Count 260
Sodium 141
Potassium 4.7
Chloride 104
Carbon Dioxide 37 H
BUN 27 H
Creatinine 0.7
Glucose 105 H
Calcium 9.1
Vital Signs:
Vital Signs
Temp Pulse Resp BP Pulse Ox
97.7 F 66 18 115/48 97
06/04/25 10:53 06/04/25 10:53 06/04/25 10:53 06/04/25 10:53 06/04/25 10:53
I&O
06/03/25 06/04/25 06/05/25
06:59 06:59 06:59
Intake Total 720 / 720 1080 / 1080
Output Total 800 / 800 1475 / 1475
Balance -80 / -80 -395 / -395
[2025-06-04 12:21] LABS: Glucose - Point of Care 273 mg/dl (70-99)
[2025-06-04] MEDS: NOVOLOG FLEXPEN-LOW RESISTANCE 3 UNITS SC (12:43)
[2025-06-04] MEDS: REMOVE DURAGESIC PATCH 1 PATCH REMOVE (12:49)
--- NOTE | 2025-06-04 13:35 | CON.CAR ---
Addendum entered and electronically signed by Galdino Sebastian MD 06/04/25 14:46:
I saw and examined the patient independently and performed majority of MDM.
The BOILING TUB OPERATOR's note was reviewed and I agree with the note with changes/additions below.
Comment: 69 yo female with PMH of CAD/CABG, TAVR, paroxysmal A fib on eliquis. She is admitted with altered mental status, which is being evaluated by primary team. We are consulted for chest pain. She reports a 3-4 hour episode of burning pain,
which occurred earlier today. She reports that it feels 'different than when I had a heart attack.' Exam with RRR, no murmurs, no edema. TnI today: 0.017. Echo: EF 55-60%, TAVR with mean grad 11, no AR. EKG: NSR, IVCD, nonspecific ST abnl.
Chest pain. With normal trop after 3-4 hrs of pain. Trop is actually lower than admission troponin. Seems like non-cardiac chest pain.
Paroxysmal A fib. Stable in sinus. Continue eliquis 5mg bid.
Please call us back with additional questions.
Original Note:
Consultation
Consultation Request
Date/Time Consultation Requested: 06/04/2025 12:45
Date/Time Consultation Performed: 06/04/2025 13:35
Requesting Provider: Dr. Torres
Performing Provider: ALECIA Fox for Dr. Sebastian
Reason for Consultation: Chest pain
Medical History
-
Chief Complaint: Change in mental status
History of Present Illness:
Elva Bee is a 69-year-old female with chronic HFpEF, paroxysmal atrial fibrillation, CAD s/p CABG, TAVR, prior CVA, type 2 diabetes mellitus, hypertension, hyperlipidemia, anemia of chronic disease, and right ankle osteomyelitis who presented to
the ER 05/29/2025 with change in mental status. [facility] She had a recent hospitalization at [facility] and was transferred to rehab 05/25/2025. Her hospitalization at our was for heart failure and
right ankle wound debridement. There was a finding of an old CVA on head CT. After admission, twitching and tremors were noted. She was seen by neurology and this was diagnosed as seizure activity. Her mental status improved post Keppra.
Cardiology was consulted today for chest pain.
Past Medical History
Past Medical History: Arrhythmias (Paroxysmal atrial fibrillation), CAD, CHF, CVA, HTN, Hypercholesterolemia and Valvular Disease (TAVR)
Past Surgical History: Cardiac
Social History
Tobacco: Former Smoker
Living: Half-Way
Employment: Retired
Family History
Family History: Reviewed & Not Pertinent
Allergies / Home Medications
Allergy/AdvReac Type Severity Reaction Status Date / Time
Latex, Natural Rubber Allergy Intermediate Rash Verified 05/29/25 10:00
�Medication �Instructions �Recorded �Confirmed �Type
aspirin 81 mg capsule 81 mg PO DAILY Blood Clot 10/26/24 05/29/25 History
Prevention/Tx
bumetanide 2 mg tablet 2 mg PO BID Fluid 10/26/24 05/29/25 History
Retention/Swelling
fentanyl 100 mcg/hr transdermal 1 patch transdermal Q72H Pain 10/26/24 05/29/25 History
patch
gabapentin 400 mg capsule 400 mg PO TID Pain 10/26/24 05/29/25 History
levothyroxine 50 mcg tablet 50 mcg PO DAILY Thyroid 10/26/24 05/29/25 History
metformin 500 mg tablet 1,000 mg PO BID Diabetes 10/26/24 05/29/25 History
metoprolol tartrate 25 mg tablet 50 mg PO BID Blood Pressure 10/26/24 05/29/25 History
morphine 30 mg immediate release 30 mg PO Q4H PRN pain 10/26/24 05/29/25 History
tablet
omeprazole 40 mg capsule,delayed 40 mg PO BID Gastrointestinal Issue 10/26/24 05/29/25 History
release
repaglinide 1 mg tablet 1 mg PO BID Diabetes 10/26/24 05/29/25 History
acetaminophen 325 mg tablet 650 mg PO Q6H PRN pain 05/29/25 05/29/25 History
apixaban 5 mg tablet 5 mg PO BID Blood Clot 05/29/25 05/29/25 History
Prevention/Tx
dapagliflozin propanediol 10 mg 10 mg PO DAILY Diabetes 05/29/25 05/29/25 History
tablet
Review of Systems
-
History Source: Patient
All other systems: Negative unless noted
Constitutional: No Symptoms
EENT: No Symptoms
Respiratory: No Symptoms
Cardiac: No Symptoms
Abdomen/GI: No Symptoms
: No Symptoms
Musculoskeletal: No Symptoms
Skin: No Symptoms
Neurological: No Symptoms
Endocrine: No Symptoms
Hematologic/Lymphatic: No Symptoms
Physical Exam
Vital Signs
Temp Pulse Resp BP Pulse Ox
97.7 F 66 18 115/48 97
06/04/25 10:53 06/04/25 10:53 06/04/25 10:53 06/04/25 10:53 06/04/25 10:53
Lab Results
06/04/25 06:12
06/04/25 06:12
Troponin I Cancelled 05/29/25 21:45
Ies-Z-Yaupbalipdu Pept 91754 pg/ml 05/29/25 10:21
Physical Exam
General: Well Developed, Well Nourished, No Apparent Distress and Comfortable
HEENT: Normocephalic and Moist Mucous Membranes
Respiratory: Non Labored Respirations
Cardiac: S1/S2 and Regular Rhythm
Breast: Deferred by me
GI: Soft, Non Tender, Non Distended and Normal Bowel Sounds
Rectal: Deferred by Provider
Genito-urinary: No Costovertebral Tender
Musculoskeletal: No Clubbing
Skin: Warm and Dry
Neuro: Awake and Alert
Hematologic/Lymphatic: No Lymphadenopathy
Psych: Calm
Impression / Plan
-
I/P: 69F with chronic HFpEF, paroxysmal atrial fibrillation, CAD s/p CABG, TAVR, prior CVA, type 2 diabetes mellitus, hypertension, hyperlipidemia, anemia of chronic disease, and right ankle osteomyelitis who presented to the ER 05/29/2025 with
change in mental status.
Primary Medicaid Eligibility Specialist: Dr. Carlyle Owens ([facility] in [place], [place])
Chest pain
- Atypical chest pain with chest burning 'all day'
- Troponin 0.017, less than admission
- Echocardiogram this admission without acute findings
HFpEF, chronic
- Bumetanide on hold as she had an GINI and was volume depleted
- Continue daily weight, I/O
Paroxysmal atrial fibrillation
- In sinus rhythm
- Oral Anticoagulation: Eliquis 5 mg twice daily
- [id number]: Score at least 8 (Heart failure, HTN, Diabetes Mellitus, prior Stroke/TIA, Vascular disease, age 65-74, female gender)
Right ankle osteomyelitis, recent hospitalization at [facility] discharged on cefepime to facility, ID following
Change in mental status, suspect to be in the setting of seizures, new onset, neurology following
GINI, resolved
CAD s/p CABG, on beta adia, consider resuming statin
PAD, status post toe amputations
Aortic stenosis s/p TAVR, peak/mean gradients 23/11 mmHg on TTE this admission
Prior CVA
Type 2 diabetes mellitus, per primary service
Hypercholesterolemia, goal LDL <55, outpatient cardiology note had her on atorvastatin 20 mg
Chronic pain with opioid dependence, per primary service
Data Reviewed
-
EKG: Report Reviewed by me
Radiology: Report Reviewed by me
Labs: Labs Reviewed by me
Old Records: Reviewed
[2025-06-04 13:43] LABS: Troponin I 0.017 ng/ml
--- NOTE | 2025-06-04 13:47 | W.PN.ID1 ---
Date of Service
Date of Service: June 04, 2025
Today's Communication
continue to hold antibiotics
no new records on the the chart
Assessment / Plan
Acute encephalopathy - resolved
Reported new onset seizure
Right foot osteomyelitis; currently on prolonged course of cefepime
Leukocytosis with left shift
Renal insufficiency (current est CrCl = 27)
A-fib
HTN
Hypothyroidism
DM 2
PAD
HLD
Right foot osteomyelitis / chronic wound wound
Chronic anemia
Hx CVA
Cataracts
Recommendations:
Currently holding on antibiotics given the possibility of medication�induced encephalopathy (secondary to cefepime). Overall mentation appears resolved
Records from [facility] requested 05/29/[address] Hernandez. Unfortunately, there are 1000 pages of labs only, and no progress notes or consultation notes. The records were re-requested 06/03 however there are currently no
records available on the paper chart.
Call placed to speak with LEONEL Cerna, part of [facility] practice ([phone]) 06/03. Awaiting callback.
Monitor white count temperature curve.
Deep culture of the right foot wound obtained and showed no growth.
X-ray of the right foot does not reveal any evidence of osteomyelitis.
Will review outside records when obtained.
����������������������������������������������������������
Chief Complaint
-: Other (Right foot infection)
Subjective / Review of Systems
afebrile
bp stable
had hemorrhoidal bleeding overnight
Vital Signs / Physical Exam
Vital Signs
Vital Signs
Temp Pulse Resp BP Pulse Ox
97.7 F 66 18 115/48 97
06/04/25 10:53 06/04/25 10:53 06/04/25 10:53 06/04/25 10:53 06/04/25 10:53
Physical Exam
Constitutional: No Acute Distress
Cardiovascular: Regular Rate and S1/S2; Negative Murmur or Rub
Pulmonary: Clear and Symmetric; Negative Wheezes or Rales
Gastrointestinal: Soft, Non Tender, Non Distended and Normal Bowel Sounds
Skin: Warm and Dry; Negative Rash or Jaundice
Wound: Other (right foot with charcot arthropathy, digits 4&5 amputated, callous with a small blood blister on the lateral aspect of the plantar foot; superficial dorsal foot wound with granulation tissue in the base)
Objective Data
Lab Data
Lab Results
06/04/25 06:12
06/04/25 06:12
PT 20.6 Sec (11.4-14.6) H 05/29/25 16:48
INR 1.75 05/29/25 16:48
APTT 64.6 Sec (23.4-35.0) H 05/29/25 16:48
Estimated Creat Clear 74 ml/min 06/04/25 06:12
Total Bilirubin 0.9 mg/dl (0.2-1.3) 06/03/25 05:51
AST 25 U/L (14-36) 06/03/25 05:51
ALT 14 U/L (0-35) 06/03/25 05:51
Alkaline Phosphatase 120 U/L (38-126) 06/03/25 05:51
Most recent labs reviewed.
Micro Results:
06/03/25 03:10 Urine Culture - Final
Urine Yeast
05/30/25 09:40 Wound Culture - Final
Foot - Right No growth
Gram Stain - Final
05/30/25 09:40 Anaerobic Culture - Final
Foot - Right NO ANAEROBES ISOLATED
05/29/25 13:34 Blood Culture - Final
Blood/Venous No Growth - Final Report
05/29/25 13:43 Blood Culture - Final
Blood/Venous No Growth - Final Report
05/29/25 13:07 Respiratory Culture - Final
Sputum Usual Respiratory Odalis
Gram Stain - Final
Imaging:
05/30/2025 Right ankle x-ray: there is no acute fracture, dislocation or suspicious osseous abnormalities. Prominent posterior and plantar calcaneal spurs. There appears to be a prior partial lateral amputation within the foot. No appreciable soft
tissue swelling.
05/29/2025 CT head without contrast: no evidence of acute intracranial abnormality. Please see full dictation for additional detail.
[2025-06-04 15:20] VITALS: BP 109/58
--- NOTE | 2025-06-04 15:46 | PTCARENOTE ---
Pt c/o 02/04 sharp chest pain in center of chest. EKG done. Pt states pain does not feel like a heart attack and that she had this pain the other night and it resolved on its own. By the time EKG was finished, pt reported chest pain was resolving and
pain went down to 2/10. VSS. notified via tiger text. Cardiology consulted. Troponin ordered and drawn. Troponin negative. Pt resting comfortably in bed at this time.
[2025-06-04 16:25] VITALS: BMI 27.2
[2025-06-04 16:43] LABS: Glucose - Point of Care 202 mg/dl (70-99)
[2025-06-04] MEDS: NOVOLOG FLEXPEN-LOW RESISTANCE 2 UNITS SC (17:50)
[2025-06-04 19:00] VITALS: BP 105/45
--- NOTE | 2025-06-04 20:25 | PTCARENOTE ---
Pt retaining urine. Bladder scan showed 350ml. Patient previously straight cathed 4x. MD notified via tiger text, hargrove order requested. Hargrove order in, 16F hargrove placed.
[2025-06-04] MEDS: ANUSOL HC RECTAL (20:35)
[2025-06-04] MEDS: MIRALAX PO (20:35)
[2025-06-04] MEDS: SENOKOT 17.2 MG PO (20:36)
[2025-06-04 21:18] LABS: Glucose - Point of Care 134 mg/dl (70-99)
[2025-06-04 23:00] VITALS: BP 118/86
[2025-06-05] MEDS: MORPHINE SULFATE PO ×2 (00:26→04:28)
[2025-06-05 03:38] VITALS: BP 104/71
[2025-06-05] MEDS: SYNTHROID 50 MCG PO (05:40)
[2025-06-05 06:04] VITALS: BMI 27.1
[2025-06-05] MEDS: SODIUM CHLORIDE 3% FOR INHALATION 1 VIAL INH ×2 (07:21→15:07)
[2025-06-05] MEDS: DUONEB 3 ML INH ×4 (07:21→17:49)
[2025-06-05] MEDS: PULMICORT 0.5 MG INH ×2 (07:21→17:49)
[2025-06-05 07:22] VITALS: BP 99/46
[2025-06-05 07:54] LABS: Glucose - Point of Care 138 mg/dl (70-99)
[2025-06-05] MEDS: NOVOLOG FLEXPEN-LOW RESISTANCE SC (08:14)
[2025-06-05] MEDS: KEPPRA 500 MG PO ×2 (08:15→20:24)
[2025-06-05] MEDS: ELIQUIS 5 MG PO ×2 (08:15→20:24)
[2025-06-05] MEDS: LYRICA 50 MG PO ×3 (08:15→21:42)
[2025-06-05] MEDS: MIRALAX PO ×2 (08:15→20:32)
[2025-06-05] MEDS: MORPHINE SULFATE 30 MG PO ×4 (08:15→20:24)
[2025-06-05] MEDS: ASPIR LOW (ENTERIC COATED) 81 MG PO (08:15)
[2025-06-05 09:03] LABS: Hematocrit 30.9 % (37.0-47.0); Hemoglobin 8.7 g/dL (12.0-16.0); Mean Corp Hgb Conc. 28.2 g/dL (33.0-37.0); Mean Corpuscular Volume 86.3 fL (81.0-99.0); Nucleated Red Blood Cells % 0 %; Platelet Count 265 10^3/uL (130-400); Red Cell Dist. Width 19.2 % (11.5-14.5)
[2025-06-05 09:32] LABS: ALT (SGPT) 12 U/L (0-35); AST (SGOT) 17 U/L (14-36); Albumin 3.1 g/dl (3.5-5.0); Alkaline Phosphatase 137 U/L (38-126); Blood Urea Nitrogen 21 mg/dl (7-17); Calcium 9.0 mg/dl (8.4-10.2); Carbon Dioxide 37 mmol/L (22-30); Chloride 101 mmol/L (98-107); Estimated Creatinine Clearance 74 ml/min; Glucose 115 mg/dl (70-99); Potassium 4.1 mmol/L (3.5-5.1); Sodium 141 mmol/L (135-145); Total Protein 6.4 g/dl (6.3-8.2); eGFR > 60.00
--- NOTE | 2025-06-05 09:36 | W.PN.HOSP.TC ---
Today's Communication/Plan
-
CTA chest. AED.
Assessment / Plan
Assessment / Plan
Gen-awake, alert, appears chronically ill, NAD
HEENT-NC, AT, anicteric, clear oral mm
Neck-supple
CV-reg, no M, +S1/S2
Lungs-rhonchi bilaterally
Abd-soft, NT, ND
Ext-no edema
Musculoskeletal-no cyanosis, clubbing, right Charcot foot with dressing on ankle and examined ulcer
Skin-warm and dry, ulcer on right foot
Neuro-grossly non-focal
Psych-calm, cooperative
A/P:
Chest pain-suspect GI etiology so started on Protonix 40 mg twice a day. Given increased right-sided pressures on her echocardiogram I think it is best to do stat CTA. Discussed with cardiology. Plan for CTA today. Tried to reach daughter but
unable. Discussed with special education case manager today in person for discharge disposition and they will look into that.
Acute Encephalopathy -suspect mainly due to seizures, unclear etiology but possible medications. Updated daughter prior. Reviewed old records quite extensive but only labs and no notes-ID reaching out to outpatient ID.
Recent mental status changes and questionable focal weakness-doubt anything new neurologically but obtain CT of the head. Reached out to neurology to reevaluate today. Narcotics might be contributing but she is very reluctant to change doses.
Also Neurontin was felt to be an issue by neurology so changed to Lyrica.
Rectal bleed-suspect hemorrhoidal bleed. GI consult appreciated
New onset seizures/status epilepticus -on Keppra 500 mg twice daily. On IV Ativan as needed. MRI of the brain unremarkable for acute finding but meningioma that is not causing issues.
Chronic pain with opiate dependence-restarted fentanyl patch home doses, oral morphine, and continue IV Dilaudid as needed.
Shock -present on admission, resolved. Hemodynamically stable
Acute hypoxic/hypercapnic respiratory failure -present on admission. On 2 L of oxygen currently. Pulmonary feels VQ can be done outpatient (currently on Eliquis, [employer])
GINI -creatinine back to 0.7 today (creatinine peaked at 2).
Troponin elevation -due to nonischemic myocardial injury due to acute illness.
CAD/CABG -daughter states bypass surgery was approximately 15 years ago, two-vessel. Details unclear.
Chronic heart failure, unknown type -hold Bumex for GINI. Appears volume depleted. Daughter states she lost approximately 20 pounds in the hospital, treated with IV Bumex for heart failure exacerbation. Records have been requested.
Atrial fibrillation -unknown type. On chronic anticoagulation, Eliquis.
DM 2 without hyperglycemia -hold metformin. Use low resistance NovoLog scale. Check hemoglobin A1c at 7.3. Hold oral agents.
Hypothyroidism -continue levothyroxine. TSH 1.1.
Chronic anemia -normocytic. Presumably due to chronic inflammation. Monitor for now.
Right ankle wound/osteomyelitis/Charcot foot -underwent debridement at [facility] recently. Details unknown. Records requested. Apparently was on cefepime and discharged to rehab on this antibiotic. Holding cefepime for
encephalopathy, seizures, ID consulted. Blood cultures pending. Leukocytosis resolved. Afebrile here. Defer to ID for antibiotics
PAD -with multiple toe amputations in the past per family.
Full code
Total time spent on today's encounter was 55 minutes which included time spent in counseling the patient/family regarding diagnosis and treatment plan as listed above, goals of care, and symptom management. Case was discussed with nursing staff,
specialists, and care coordinators/case management. All labs and imaging personally reviewed by me. Remainder the time spent in detailed review of previous records, lab data, imaging, and other medical provider documentation.
Anticipated Discharge: > 48 hours
Subjective/Interval History
-
Date of Service: June 05, 2025
Patient had repeated chest pain today-describes burning sensation and relieved on its own. No shortness of breath. Remains on supplemental oxygen.
Objective Data
-
Labs:
Laboratory Results
06/05/25
08:22
WBC 10.6
Hgb 8.7 L
Hct 30.9 L
Plt Count 265
Sodium 141
Potassium 4.1
Chloride 101
Carbon Dioxide 37 H
BUN 21 H
Creatinine 0.7
Glucose 115 H
Calcium 9.0
Total Bilirubin 0.9
AST 17
ALT 12
Alkaline Phosphatase 137 H
Vital Signs:
Vital Signs
Temp Pulse Resp BP Pulse Ox
97.6 F 58 16 99/46 100
06/05/25 07:22 06/05/25 07:27 06/05/25 07:27 06/05/25 07:22 06/05/25 07:27
I&O
06/04/25 06/05/25 06/06/25
06:59 06:59 06:59
Intake Total 1080 / 1080 420 / 420
Output Total 1475 / 1475 625 / 625
Balance -395 / -395 -205 / -205
[2025-06-05] MEDS: PROTONIX 40 MG PO ×2 (09:47→20:24)
--- NOTE | 2025-06-05 09:49 | PTCARENOTE ---
patient c/o midsternal sharp pain, notified. EKG obtained. new order for CT PE study placed and noted.
[2025-06-05 09:50] LABS: Anisocytosis 1+; Hypochromasia 1+; Ovalocytes 1+
[2025-06-05 11:08] VITALS: BP 104/41
[2025-06-05 11:38] LABS: Glucose - Point of Care 343 mg/dl (70-99)
[2025-06-05] MEDS: NOVOLOG FLEXPEN-LOW RESISTANCE 4 UNITS SC (11:47)
[2025-06-05 11:52] LABS: Normal RBC Morphology No
[2025-06-05 15:21] VITALS: BP 108/42
[2025-06-05 16:44] LABS: Glucose - Point of Care 269 mg/dl (70-99)
[2025-06-05] MEDS: NOVOLOG FLEXPEN-LOW RESISTANCE 3 UNITS SC (17:07)
--- NOTE | 2025-06-05 17:51 | W.PN.ID1 ---
Date of Service
Date of Service: June 05, 2025
Today's Communication
Start po Bactrim. See below.
Assessment / Plan
Acute encephalopathy - resolved
Reported new onset seizure
Right foot osteomyelitis; currently on prolonged course of cefepime
Leukocytosis with left shift
Renal insufficiency resolved
A-fib
TAVR
CHF
HTN
Hypothyroidism
DM 2
PAD
HLD
Right foot osteomyelitis / chronic wound wound
Chronic anemia
Hx CVA
Cataracts
Recommendations:
Currently holding on antibiotics given the possibility of medication�induced encephalopathy (secondary to cefepime). Overall mentation appears resolved
Records from [facility] (04/26 - 05/25) requested 05/29/[address] Hernandez. Unfortunately, there are 1000 pages of labs and imaging only, and no progress notes or consultation notes. The records were re-requested 06/03 however
there are currently no records available on the paper chart.
Dr. Hernandez placed to speak with LEONEL Cerna, part of [facility] practice ([phone]) 06/03. Awaiting callback.
I reviewed outside labs and imaging report scanned into [facility] (597 pages):
04/30/25 MRI right foot wo contrast: moderate signal abnormality throughout mid foot; there is likely acute osteomyelitis
05/03/25 Bone cx:
Many Proteus vulgaris: R to amp, cefazolin; S CTX, cipro, amp/sulb, Zosyn, T/sulfa
Many MRSA: S to clinda, tetracycline, T/sulfa
Anaerobic cx: negative
Fungal cx: negative
05/03/25 Bone Biopsy Pathology:
Acute osteomyelitis. Viable bone identified at surgical margin
I saw only 1 Vancomycin level on 05/08/25. Thus suspect she was not on long course Vanco.
No CK in labs. Suspect not on daptomycin.
Deep culture of the right foot wound obtained here and showed no growth.
Start Bactrim DS 1 tab po bid while awaiting outside progress notes, discharge summary, etc.
Montior Cr and K while on Bactrim.
����������������������������������������������������������
Chief Complaint
-: Other (Right foot infection)
Subjective / Review of Systems
Had chest discomfort today, now resolved.
Vital Signs / Physical Exam
Vital Signs
Vital Signs
Temp Pulse Resp BP Pulse Ox
97.8 F 66 17 108/42 96
06/05/25 15:21 06/05/25 15:21 06/05/25 15:21 06/05/25 15:21 06/05/25 15:21
Physical Exam
Constitutional: No Acute Distress
Eyes: No Conjunctival Hemorrhage and Sclera Anicteric
Cardiovascular: Regular Rate and S1/S2
Pulmonary: Rales
Gastrointestinal: Soft, Non Tender, Non Distended and Normal Bowel Sounds
Extremities: Negative Edema
Wound: Other (right foot with charcot arthropathy, digits 4&5 amputated, callous with a small blood blister on the lateral aspect of the plantar foot; superficial dorsal foot wound with granulation tissue in the base)
Neurological: Awake and Alert
Objective Data
Lab Data
Lab Results
06/05/25 08:22
06/05/25 08:22
PT 20.6 Sec (11.4-14.6) H 05/29/25 16:48
INR 1.75 05/29/25 16:48
APTT 64.6 Sec (23.4-35.0) H 05/29/25 16:48
Estimated Creat Clear 74 ml/min 06/05/25 08:22
Total Bilirubin 0.9 mg/dl (0.2-1.3) 06/05/25 08:22
AST 17 U/L (14-36) 06/05/25 08:22
ALT 12 U/L (0-35) 06/05/25 08:22
Alkaline Phosphatase 137 U/L (38-126) H 06/05/25 08:22
Most recent labs reviewed.
Micro Results:
06/03/25 03:10 Urine Culture - Final
Urine Yeast
05/30/25 09:40 Wound Culture - Final
Foot - Right No growth
Gram Stain - Final
05/30/25 09:40 Anaerobic Culture - Final
Foot - Right NO ANAEROBES ISOLATED
05/29/25 13:34 Blood Culture - Final
Blood/Venous No Growth - Final Report
05/29/25 13:43 Blood Culture - Final
Blood/Venous No Growth - Final Report
05/29/25 13:07 Respiratory Culture - Final
Sputum Usual Respiratory Odalis
Gram Stain - Final
Imaging:
05/30/2025 Right ankle x-ray: there is no acute fracture, dislocation or suspicious osseous abnormalities. Prominent posterior and plantar calcaneal spurs. There appears to be a prior partial lateral amputation within the foot. No appreciable soft
tissue swelling.
05/29/2025 CT head without contrast: no evidence of acute intracranial abnormality. Please see full dictation for additional detail.
[2025-06-05 19:00] VITALS: BP 105/41
[2025-06-05] MEDS: BACTRIM DS 800 MG/160 MG 1 TABLET PO (20:24)
[2025-06-05] MEDS: SENOKOT 17.2 MG PO (21:38)
[2025-06-05 21:40] LABS: Glucose - Point of Care 164 mg/dl (70-99)
[2025-06-05] MEDS: ANUSOL HC 25 MG RECTAL (21:46)
[2025-06-05 23:00] VITALS: BP 104/44
--- NOTE | 2025-06-05 23:36 | W.PN.UPDATE ---
Update Note
Progress Note Update
per RT patient hasn't been using BiPap since Saturday. will D/C order.
[2025-06-06] VITALS (7 sets, daily range): BP systolic 95–112; BP diastolic 33–65
[2025-06-06] MEDS: MORPHINE SULFATE PO ×2 (01:01→04:41)
[2025-06-06 06:16] LABS: Hematocrit 29.2 % (37.0-47.0); Hemoglobin 8.4 g/dL (12.0-16.0); Mean Corp Hgb Conc. 28.8 g/dL (33.0-37.0); Mean Corpuscular Volume 85.4 fL (81.0-99.0); Nucleated Red Blood Cells % 0 %; Platelet Count 264 10^3/uL (130-400); Red Cell Dist. Width 19.6 % (11.5-14.5)
[2025-06-06] MEDS: SYNTHROID 50 MCG PO (06:19)
[2025-06-06 06:23] LABS: Blood Urea Nitrogen 20 mg/dl (7-17); Calcium 8.6 mg/dl (8.4-10.2); Carbon Dioxide 37 mmol/L (22-30); Chloride 102 mmol/L (98-107); Estimated Creatinine Clearance 74 ml/min; Glucose 141 mg/dl (70-99); Potassium 4.7 mmol/L (3.5-5.1); Sodium 141 mmol/L (135-145); eGFR > 60.00
[2025-06-06 07:19] LABS: Glucose - Point of Care 145 mg/dl (70-99)
[2025-06-06] MEDS: DUONEB 3 ML INH ×4 (07:38→19:17)
[2025-06-06] MEDS: PULMICORT 0.5 MG INH ×2 (07:38→19:16)
[2025-06-06] MEDS: SODIUM CHLORIDE 3% FOR INHALATION 1 VIAL INH ×2 (07:38→19:17)
[2025-06-06] MEDS: NOVOLOG FLEXPEN-LOW RESISTANCE SC (08:36)
[2025-06-06] MEDS: ASPIR LOW (ENTERIC COATED) 81 MG PO (08:44)
[2025-06-06] MEDS: MORPHINE SULFATE 30 MG PO ×4 (08:44→20:11)
[2025-06-06] MEDS: KEPPRA 500 MG PO ×2 (08:44→20:11)
[2025-06-06] MEDS: PROTONIX 40 MG PO ×2 (08:45→20:11)
[2025-06-06] MEDS: BACTRIM DS 800 MG/160 MG 1 TABLET PO ×2 (08:45→20:11)
[2025-06-06] MEDS: ELIQUIS 5 MG PO ×2 (08:45→20:11)
[2025-06-06] MEDS: LYRICA 50 MG PO ×2 (08:45→16:30)
[2025-06-06] MEDS: MIRALAX PO (08:45)
[2025-06-06 12:00] LABS: Glucose - Point of Care 286 mg/dl (70-99)
[2025-06-06] MEDS: NOVOLOG FLEXPEN-LOW RESISTANCE 3 UNITS SC ×2 (12:59→17:31)
--- NOTE | 2025-06-06 13:43 | W.PN.HOSP.TC ---
Today's Communication/Plan
-
AED. Oral antibiotics. Discharge plan
Assessment / Plan
Assessment / Plan
Gen-awake, alert, appears chronically ill, NAD
HEENT-NC, AT, anicteric, clear oral mm
Neck-supple
CV-reg, no M, +S1/S2
Lungs-rhonchi bilaterally
Abd-soft, NT, ND
Ext-no edema
Musculoskeletal-no cyanosis, clubbing, right Charcot foot with dressing on ankle and examined ulcer
Skin-warm and dry, ulcer on right foot
Neuro-grossly non-focal
Psych-calm, cooperative
A/P:
Acute Encephalopathy -suspect mainly due to seizures, unclear etiology but possible medications. Updated daughter prior. Reviewed old records available. Continue PT OT.
Chest pain-due to GI etiology and improved on oral Protonix. CTA negative for PE.
Hemorrhoidal bleed. On Anusol
Asterixis due to Neurontin-switched to Lyrica per neurology.
New onset seizures/status epilepticus -on Keppra 500 mg twice daily. On IV Ativan as needed. MRI of the brain unremarkable for acute finding but meningioma that is not causing current issues.
Chronic pain with opiate dependence-restarted home doses fentanyl patch and oral morphine, and continue IV Dilaudid as needed.
Shock -present on admission, resolved. Hemodynamically stable
Acute hypoxic/hypercapnic respiratory failure -present on admission. On 2 L of oxygen currently.
GINI -creatinine 0.7 today (creatinine peaked at 2).
Troponin elevation -due to nonischemic myocardial injury due to acute illness.
CAD/CABG -daughter states bypass surgery was approximately 15 years ago, two-vessel. Details unclear.
Chronic heart failure, unknown type -hold Bumex for GINI. Appears volume depleted. Daughter states she lost approximately 20 pounds in the hospital, treated with IV Bumex for heart failure exacerbation. Records have been requested.
Atrial fibrillation -unknown type. On chronic anticoagulation, Eliquis.
DM 2 without hyperglycemia -hold metformin. Use low resistance NovoLog scale. Check hemoglobin A1c at 7.3. Hold oral agents.
Hypothyroidism -continue levothyroxine. TSH 1.1.
Chronic anemia -normocytic. Presumably due to chronic inflammation. Hemoglobin stable at 8.4
Right ankle wound/osteomyelitis/Charcot foot -underwent debridement at [facility] recently. Details unknown. Records requested. Apparently was on cefepime and discharged to rehab on this antibiotic. Holding cefepime for
encephalopathy, seizures, ID consulted. Blood cultures no growth. Deep wound cultures no growth. Leukocytosis resolved. Afebrile here. ID started on Bactrim.
Yeast in urine-contaminant.
PAD -with multiple toe amputations in the past per family.
Full code
Disposition-discussed with case management person today and looking into SNF. Medically clear for discharge over the next ensuing days.
Total time spent on today's encounter was 35 minutes which included time spent in counseling the patient/family regarding diagnosis and treatment plan as listed above, goals of care, and symptom management. Case was discussed with nursing staff,
specialists, and care coordinators/case management. All labs and imaging personally reviewed by me. Remainder the time spent in detailed review of previous records, lab data, imaging, and other medical provider documentation.
Anticipated Discharge: 24 - 48 hours
Subjective/Interval History
-
Date of Service: June 06, 2025
Patient denies further chest discomfort. Remains on supplemental oxygen. Afebrile.
Objective Data
-
Labs:
Laboratory Results
06/06/25
05:27
WBC 11.7 H
Hgb 8.4 L
Hct 29.2 L
Plt Count 264
Sodium 141
Potassium 4.7
Chloride 102
Carbon Dioxide 37 H
BUN 20 H
Creatinine 0.7
Glucose 141 H
Calcium 8.6
Vital Signs:
Vital Signs
Temp Pulse Resp BP Pulse Ox
98.5 F 60 16 103/62 932
06/06/25 11:22 06/06/25 11:24 06/06/25 11:24 06/06/25 11:22 06/06/25 11:24
I&O
06/05/25 06/06/25 06/07/25
06:59 06:59 06:59
Intake Total 420 / 420 360 / 360
Output Total 625 / 625 875 / 875
Balance -205 / -205 -515 / -515
[2025-06-06 17:19] LABS: Glucose - Point of Care 268 mg/dl (70-99)
[2025-06-06] MEDS: MIRALAX 17 GRAMS PO (20:11)
[2025-06-06] MEDS: ANUSOL HC 25 MG RECTAL (21:40)
[2025-06-06] MEDS: LYRICA PO (21:44)
[2025-06-06] MEDS: SENOKOT PO (21:45)
[2025-06-06 21:52] LABS: Glucose - Point of Care 176 mg/dl (70-99)
[2025-06-07] MEDS: MORPHINE SULFATE PO ×2 (00:27→04:49)
[2025-06-07 03:00] VITALS: BP 109/64
[2025-06-07 05:26] LABS: Blood Urea Nitrogen 18 mg/dl (7-17); Calcium 8.7 mg/dl (8.4-10.2); Chloride 101 mmol/L (98-107); Estimated Creatinine Clearance 74 ml/min; Glucose 119 mg/dl (70-99); Sodium 141 mmol/L (135-145); eGFR > 60.00
[2025-06-07 05:42] LABS: Carbon Dioxide 37 mmol/L (22-30); Potassium 5.1 mmol/L (3.5-5.1)
[2025-06-07] MEDS: SYNTHROID 50 MCG PO (05:42)
[2025-06-07 06:00] VITALS: BMI 28.1
[2025-06-07 07:18] VITALS: BP 107/46
[2025-06-07] MEDS: PULMICORT 0.5 MG INH (07:35)
[2025-06-07] MEDS: DUONEB 3 ML INH ×3 (07:35→15:14)
[2025-06-07] MEDS: SODIUM CHLORIDE 3% FOR INHALATION 1 VIAL INH (07:35)
[2025-06-07 07:54] LABS: Glucose - Point of Care 122 mg/dl (70-99)
[2025-06-07] MEDS: NOVOLOG FLEXPEN-LOW RESISTANCE SC (08:02)
[2025-06-07 08:09] VITALS: BP 117/38
[2025-06-07] MEDS: MORPHINE SULFATE 30 MG PO ×3 (08:53→15:36)
[2025-06-07] MEDS: PROTONIX 40 MG PO (08:54)
[2025-06-07] MEDS: KEPPRA 500 MG PO (08:54)
[2025-06-07] MEDS: ASPIR LOW (ENTERIC COATED) 81 MG PO (08:54)
[2025-06-07] MEDS: MIRALAX 17 GRAMS PO (08:54)
[2025-06-07] MEDS: ELIQUIS 5 MG PO (08:54)
[2025-06-07] MEDS: LYRICA 50 MG PO ×2 (08:55→15:36)
[2025-06-07] MEDS: BACTRIM DS 800 MG/160 MG 1 TABLET PO (08:55)
--- NOTE | 2025-06-07 09:46 | CM ---
Addendum entered by Lyssa Ching 06/07/25 13:57:
script printed and provided to patient equal opportunity assistant for faxing.
Addendum entered by Lyssa Ching 06/07/25 13:17:
Patient for transfer to [facility] today with IV antibiotics for 2 more weeks. Pending script to be faxed to [phone]/ need mid line/PICC report for facility.
Original Note:
Patient daughter spoke with CM via phone and reviewed IMM, copy left in patient room. Plan is for transfer to [facility] and patient will need ambulance transportation, forms completed and provided to equal opportunity assistant. CM spoke with liaison at [facility] and they
confirmed plan is for discharge today. Patient physician pending assessment to confirm plan. CM will continue to follow for discharge planning needs.
Plan; SNF; [facility] Please call [phone]
--- NOTE | 2025-06-07 10:48 | W.PN.HOSP.TC ---
Today's Communication/Plan
-
clarifying Bactrim course
resume Bumex
may be able to DC midline
remove hargrove - voiding trial
plan for SNF today
Assessment / Plan
Assessment / Plan
Gen-awake, alert, appears chronically ill, NAD
HEENT-NC, AT, anicteric, clear oral mm
Neck-supple
CV-reg, no M, +S1/S2
Lungs-rhonchi bilaterally
Abd-soft, NT, ND
Ext-no edema
Musculoskeletal-no cyanosis, clubbing, right Charcot foot with dressing on ankle and examined ulcer
Skin-warm and dry, ulcer on right foot
Neuro-grossly non-focal
Psych-calm, cooperative
A/P:
Acute Encephalopathy -suspect mainly due to seizures, possible Cefepime AE. Now resolved
Chest pain-due to GI etiology and improved on oral Protonix. CTA negative for PE.
Hemorrhoidal bleed. On Anusol
Asterixis due to Neurontin-switched to Lyrica per neurology.
New onset seizures/status epilepticus -on Keppra 500 mg twice daily. On IV Ativan as needed. MRI of the brain unremarkable for acute finding but meningioma that is not causing current issues. Keppra dose increased per Neurology.
Chronic pain with opiate dependence-restarted home doses fentanyl patch and oral morphine, and continue IV Dilaudid as needed.
Shock -present on admission, resolved. Hemodynamically stable
Acute hypoxic/hypercapnic respiratory failure -present on admission. On 2 L of oxygen currently.
GINI -creatinine 0.7 today (creatinine peaked at 2).
-resume PHYSICAL SCIENTIST Bumex and obtain repeat BMP in 2-3 days
Troponin elevation -due to nonischemic myocardial injury due to acute illness.
CAD/CABG -daughter states bypass surgery was approximately 15 years ago, two-vessel. Details unclear.
Chronic heart failure, unknown type -hold Bumex for GINI. Appears volume depleted. Daughter states she lost approximately 20 pounds in the hospital, treated with IV Bumex for heart failure exacerbation. Records have been requested.
Atrial fibrillation -unknown type. On chronic anticoagulation, Eliquis.
DM 2 without hyperglycemia -hold metformin. Use low resistance NovoLog scale. Check hemoglobin A1c at 7.3. Hold oral agents.
Hypothyroidism -continue levothyroxine. TSH 1.1.
Chronic anemia -normocytic. Presumably due to chronic inflammation. Hemoglobin stable at 8.4
Right ankle wound/osteomyelitis/Charcot foot -underwent debridement at [facility] recently. Details unknown. Records requested. Apparently was on cefepime and discharged to rehab on this antibiotic. Holding cefepime for
encephalopathy, seizures, ID consulted. Blood cultures no growth. Deep wound cultures no growth. Leukocytosis resolved. Afebrile here. ID started on Bactrim. Follow up recs for length of time.
Yeast in urine-contaminant.
PAD -with multiple toe amputations in the past per family.
Full code
Disposition-discussed with case management person today and looking into SNF. Medically clear for discharge over the next ensuing days.
Total time spent on today's encounter was 35 minutes which included time spent in counseling the patient/family regarding diagnosis and treatment plan as listed above, goals of care, and symptom management. Case was discussed with nursing staff,
specialists, and care coordinators/case management. All labs and imaging personally reviewed by me. Remainder the time spent in detailed review of previous records, lab data, imaging, and other medical provider documentation.
Anticipated Discharge: Within 24 hours
Subjective/Interval History
-
Date of Service: June 07, 2025
overall feeling well
no further seizure activity
no bloating or shortness of breath
Objective Data
-
Labs:
Laboratory Results
06/07/25
04:24
Sodium 141
Potassium 5.1
Chloride 101
Carbon Dioxide 37 H
BUN 18 H
Creatinine 0.7
Glucose 119 H
Calcium 8.7
Vital Signs:
Vital Signs
Temp Pulse Resp BP Pulse Ox
97.2 F 61 18 117/38 91
06/07/25 08:09 06/07/25 08:09 06/07/25 08:09 06/07/25 08:09 06/07/25 08:27
I&O
06/06/25 06/07/25 06/08/25
06:59 06:59 06:59
Intake Total 360 / 360 240 / 240
Output Total 875 / 875 450 / 450
Balance -515 / -515 -210 / -210
Review of Systems
-
History Source: Patient
All other systems: Reviewed and negative
Physical Exam
-
General: No Apparent Distress and Conversant
HEENT: PERRLA
Respiratory: Clear to Auscultation; Negative Wheezes
Cardiac: Regular Rhythm and S1/S2
GI: Soft and Nontender
Musculoskeletal: No Edema
Skin: Warm and Dry; Negative Rash
Neuro: AO x 3
Psych: Calm
Data Reviewed
-
Diagnostic Radiology: Report Reviewed by me
Labs: Labs Reviewed by me
[2025-06-07 10:52] VITALS: BP 104/44
[2025-06-07 11:00] VITALS: BP 115/48
[2025-06-07 11:46] LABS: Glucose - Point of Care 255 mg/dl (70-99)
[2025-06-07] MEDS: REMOVE DURAGESIC PATCH 75 PATCH REMOVE (12:17)
[2025-06-07] MEDS: BUMEX 2 MG PO (12:17)
--- NOTE | 2025-06-07 12:32 | W.DCSUMMARY ---
Discharge Summary
Discharge Data
Date of Admission: 05/29/25
Date of Discharge: 06/07/25
-
Pending Results: No
Hospital Course
Discharging Physician : Dr. Darcy Collado
Disposition : SNF
Primary care physician : Dr. Goldy Macias
Principal Discharge diagnosis : Status Epilepticus, Encephalopathy, Acute Kidney Injury
Hospital Course :
Ms. Elva Bee is a 69 yo woman with hx heart failure, HTN, atrial fibrillation, recent hospitalization at [facility] for heart failure exacerbation and right ankle osteomyelitis s/p debridement brought to the ER with tremors, slurred
speech and increasing lethargy. Upon arrival to the ER patient was tremuous and not answering questions appropriately. Cerebell EEG obtained which showed 97% seizure burden. Patient was given Valium and Keppra. She was admitted to the ICU.
Regarding seizure activity, patient was maintained on Keppra and has now remained seizure free. CT head without acute disease. Brain MRI without acute findings, meningioma is seen. She had intermittent tremor. Per Neurology, Gabapentin may be
producing myoclonic movements and this is replaced with Lyrica.
Regarding encephalopathy, concern Cefepime was also contributing to confusion. Her antibiotics were initially held x 1 week. ID was consulted for her recent history of right ankle wound/osteomyelitis. Decision made to discharge her on IV
Daptomycin and IV Ceftriaxone through 06/21. Antibiotics will be extended by 1 week considering the week that she was not on antibiotics secondary to encephalopathy. Patient's mental status is now at baseline.
Hospital course complicated by chest pain (CTA negative for PE) and pain resolved with PPI therefore likely 2/2 GERD.
She had GINI on admission, IVF ordered and her ORGANIZATIONAL DEVELOPMENT DIRECTOR Bumex was held. Creatinine then returned to baseline. She has some weight gain over past several days and her ORGANIZATIONAL DEVELOPMENT DIRECTOR Bumex dosing is resumed on discharge with plans for close follow up BMP (in 3-4
days). Suspect she was dehydrated in setting of poor PO intake secondary to lethargy and encephalopathy prior to admission. Her volume status should be closely monitored at SNF.
She is started on inhalers for presumed COPD and will follow up as outpatient with Pulmonary.
Please see daily progress notes for more details.
Time spent on discharge was 45 minutes.
Important imaging findings :
HEAD CT 05/29/25
IMPRESSION:
No evidence of acute intracranial abnormality.
BRAIN MRI 05/30/25
IMPRESSION:
No acute intracranial abnormality noted.
Mild atrophy with sequelae of mild/moderate chronic small vessel ischemic disease.
There is a 9 mm meningioma along the left parietal lobe.
CXR 05/31/25
IMPRESSION: Increased vascular congestion and interstitial edema. New small area of airspace opacity in the right upper lobe as above, most likely related to edema.
HEAD CT 06/03/25
IMPRESSION:
1. No CT evidence for acute intracranial hemorrhage or transcortical infarct.
2. MULTIPLE SMALL CHRONIC ISCHEMIC INFARCTS in both CEREBELLAR HEMISPHERES.
3. Mild white matter leukoaraiosis in the frontal and parietal lobes.
4. SEVERE BILATERAL HYPEROSTOSIS FRONTALIS INTERNA causing moderate compression on the anterior frontal lobe gyri.
5. 1.1 cm meningioma or focal calvarial hyperostosis overlying the left parietal lobe causing mild mass effect.
Procedure findings :
Discharge Plan
-
Patient Disposition: Senior Care/SNF
Discharge Diagnosis/Procedures: Seizures, acute encephalopathy, right ankle osteomyelitis
Diet: Regular
Activity: As tolerated
Driving Restrictions: No driving
Blood Work: BMP on 06/10/25.
Other Services: PT and OT
Activity Restrictions/Additional Instructions:
Wound Care Instructions
R lateral and anterior foot: silicone foam change q 3 days and prn soilage, can assess under foam daily
R medial foot: clean with saline, skin prep periwound, cut piece of mesalt to base of wound followed by 2x2 gauze and silicone tape daily and prn drainage
Sacrum: large silicone foam change q other day can assess daily
Air mattress with turning schedule
offloading cushion for chair, recommend ROHO cushion
Increase protein in diet
Follow up at wound care center for sacral wound call for an appointment.
Follow up with surgeon for R foot
Referrals:
Carter Jama MD [Active, Pulmonary Medicine]
Referral Note: Eventual PFTs
Le Friend DPM [Active, Podiatry] - in two to three weeks
Goldy Macias DO [Family Provider, Family Practice]
Vincent Dixon MD [Active, Neurology] - in three to four weeks
Additional Discharge Medication Instructions: You are prescribed IV antibiotics to complete course for Osteomyelitis. (STOP CEFEPIME). Continue IV Daptomycin and IV Ceftriaxone through 06/21 (Antibiotics extended one week to make up for one week
while off antibiotics). Please follow up with your Spiral Weaver as scheduled. If you cannot see your human services professional in [place], please make an appointment here in [place] (referral above).
STOP GABAPENTIN, this is replaced with Pregabalin 50mg 3x/day.
You are started on Keppra 500mg twice a day for seizure prevention. You cannot drive for at least 6 months.
Take Miralax and Senna for constipation. You can increase Miralax to twice a day if constipated.
You are prescribed nebulizers for suspected COPD and will follow up with Dr. Jama.
Continue your Prilosec for gastritis.
Your Bumex is resumed on discharge. You will get close follow up labs to monitor kidney function.
Prescriptions:
New
hydrocortisone acetate 25 mg Suppository
[address] HS Qty: 12 0RF
miconazole nitrate [Miconazorb AF] 2 % Powder
1 applic topical BIDPRN PRN (Reason: Rash) Qty: 85 0RF
sennosides [Kristal-lamont] 8.6 mg Tablet
17.2 mg PO HS Qty: 30 0RF
polyethylene glycol 3350 17 gram Powder In Packet
17 g PO DAILY Qty: 30 0RF
Rx Instructions:
Can increase to twice a day for constipation
levetiracetam 500 mg Tablet
500 mg PO BID Qty: 60 0RF
budesonide 0.5 mg/2 mL Suspension For Nebulization
0.5 mg inhalation R BID Qty: 60 0RF
pregabalin 50 mg Capsule
50 mg PO TID Qty: 42 0RF
ipratropium-albuterol 0.5 mg-3 mg(2.5 mg base)/3 mL Solution For Nebulization
3 ml inhalation R QID PRN (Reason: shortness of breath or wheezing) Qty: 90 0RF
ceftriaxone 2 gram Recon Soln
2,000 mg IV Q24H Qty: 0 0RF
DAPTOmycin [Cubicin] 800 MG
Syringe [Syringe-Pump] 0 ML
As Directed mls/hr IV Q24H
Ordered By: Darcy Collado MD
Last Taken: Unknown
Continued
metformin 500 mg Tablet
1,000 mg PO BID
bumetanide 2 mg Tablet
2 mg PO BID
omeprazole 40 mg Capsule,Delayed Release(Dr/Ec)
40 mg PO BID
levothyroxine 50 mcg Tablet
50 mcg PO DAILY
repaglinide 1 mg Tablet
1 mg PO BID
metoprolol tartrate 25 mg Tablet
50 mg PO BID
aspirin 81 mg Capsule
81 mg PO DAILY
acetaminophen 325 mg Tablet
650 mg PO Q6H PRN (Reason: pain)
apixaban 5 mg Tablet
5 mg PO BID
dapagliflozin propanediol 10 mg Tablet
10 mg PO DAILY
fentanyl 100 mcg/hr Patch 72 Hour
1 patch TRANSDERMAL Q72H Qty: 2 0RF
morphine 30 mg Tablet
30 mg PO Q4H PRN (Reason: pain) Qty: 20 0RF
Patient Comments:
06/01/25: Per PDMP, last filled 03/31/25 morphine IR 30mg tabs #120 for 30 days from [facility] in [place]
Discontinued
gabapentin 400 mg Capsule
400 mg PO TID
Discharge Orders:
Discharge Patient (As Directed); Ordered 06/07/25
Ordered By: Darcy Collado
Discharge Date and Time
Print Language: THAI
--- NOTE | 2025-06-07 12:51 | W.PN.ID1 ---
Date of Service
Date of Service: June 07, 2025
Today's Communication
Continue abx. See below...
Assessment / Plan
Acute encephalopathy - resolved
Reported new onset seizure
Right foot osteomyelitis; currently on prolonged course of cefepime
Leukocytosis with left shift
Renal insufficiency resolved
A-fib
TAVR
CHF
HTN
Hypothyroidism
DM 2
PAD
HLD
Right foot osteomyelitis / chronic wound wound
Chronic anemia
Hx CVA
Cataracts
Recommendations:
Suspect initial encephalopathy was secondary to cefepime. Overall mentation appears back to baseline.
Records from [facility] (04/26 - 05/25) requested 05/29/2025. When reviewed, records were received contained only labs and without progress notes. Repeat requisition finally produced discharge summary, and patient was to be on antibiotics
in the treatment of right foot osteomyelitis through 06/14/2025.
I previously placed a call to speak with LEONEL Cerna, part of [facility] practice ([phone]) 06/03. Unfortunately, never received a callback.
I reviewed outside labs and imaging report scanned into [employer] ([employer]T) (597 pages):
04/30/25 MRI right foot wo contrast: moderate signal abnormality throughout mid foot; there is likely acute osteomyelitis
05/03/25 Bone cx:
Many Proteus vulgaris: R to amp, cefazolin; S CTX, cipro, amp/sulb, Zosyn, T/sulfa
Many MRSA: S to clinda, tetracycline, T/sulfa
Anaerobic cx: negative
Fungal cx: negative
05/03/25 Bone Biopsy Pathology:
Acute osteomyelitis. Viable bone identified at surgical margin
Will place back on daptomycin and ceftriaxone, to continue through 06/21. Antibiotics will be extended by 1 week considering the week that she was not on antibiotics secondary to encephalopathy.
Patient will need local Podiatry follow-up, as I am not sure she will be following with the visual basic developer she is known to in [place] (one hour away). She remains at risk for further osteomyelitis while the right foot wound remains present. She
will need ongoing follow-up with Wound Care.
����������������������������������������������������������
Chief Complaint
-: Other (Right foot infection)
Subjective / Review of Systems
Review of Systems: No Fever and No Chills
Vital Signs / Physical Exam
Vital Signs
Vital Signs
Temp Pulse Resp BP Pulse Ox
98 F 69 18 115/48 95
06/07/25 11:00 06/07/25 12:17 06/07/25 11:41 06/07/25 12:17 06/07/25 11:41
Physical Exam
Constitutional: No Acute Distress
Eyes: No Conjunctival Hemorrhage and Sclera Anicteric
Cardiovascular: Regular Rate and S1/S2
Pulmonary: Rales
Gastrointestinal: Soft, Non Tender, Non Distended and Normal Bowel Sounds
Extremities: Negative Edema
Wound: Other (right foot with charcot arthropathy. Digits #4&5 amputated. Superficial dorsal foot wound with granulation tissue in the base. Medial wound wtih minimal slough.)
Neurological: Awake and Alert
Objective Data
Lab Data
Lab Results
06/06/25 05:27
06/07/25 04:24
PT 20.6 Sec (11.4-14.6) H 05/29/25 16:48
INR 1.75 05/29/25 16:48
APTT 64.6 Sec (23.4-35.0) H 05/29/25 16:48
Estimated Creat Clear 74 ml/min 06/07/25 04:24
Total Bilirubin 0.9 mg/dl (0.2-1.3) 06/05/25 08:22
AST 17 U/L (14-36) 06/05/25 08:22
ALT 12 U/L (0-35) 06/05/25 08:22
Alkaline Phosphatase 137 U/L (38-126) H 06/05/25 08:22
Most recent labs reviewed.
Micro Results:
06/03/25 03:10 Urine Culture - Final
Urine Yeast
05/30/25 09:40 Wound Culture - Final
Foot - Right No growth
Gram Stain - Final
05/30/25 09:40 Anaerobic Culture - Final
Foot - Right NO ANAEROBES ISOLATED
05/29/25 13:34 Blood Culture - Final
Blood/Venous No Growth - Final Report
05/29/25 13:43 Blood Culture - Final
Blood/Venous No Growth - Final Report
05/29/25 13:07 Respiratory Culture - Final
Sputum Usual Respiratory Odalis
Gram Stain - Final
Imaging:
05/30/2025 Right ankle x-ray: there is no acute fracture, dislocation or suspicious osseous abnormalities. Prominent posterior and plantar calcaneal spurs. There appears to be a prior partial lateral amputation within the foot. No appreciable soft
tissue swelling.
05/29/2025 CT head without contrast: no evidence of acute intracranial abnormality. Please see full dictation for additional detail.
Care Review
Plan reviewed with: Physician (Hospitalist)
[2025-06-07] MEDS: NOVOLOG FLEXPEN-LOW RESISTANCE 3 UNITS SC (13:21)
--- NOTE | 2025-06-07 13:33 | W.DS.TRANS ---
DC Summary - [facility]
-
Discharge Instructions:
Discharge Diagnosis/Procedures Seizures, acute encephalopathy, right ankle
osteomyelitis
Diet Regular
Activity As tolerated
Driving Restrictions No driving
Blood Work BMP on 06/10/25.
Other Services PT,OT
Instructions:
Stand-Alone Forms:
Changes to Home Medications: Yes
Discharge Medications:
DC Medications w/original date entered in [facility]
aspirin 81 mg capsule 81 mg PO DAILY Blood Clot Prevention/Tx 10/26/24
bumetanide 2 mg tablet 2 mg PO BID Fluid Retention/Swelling 10/26/24
levothyroxine 50 mcg tablet 50 mcg PO DAILY Thyroid 10/26/24
metformin 500 mg tablet 1,000 mg PO BID Diabetes 10/26/24
metoprolol tartrate 25 mg tablet 50 mg PO BID Blood Pressure 10/26/24
omeprazole 40 mg capsule,delayed release 40 mg PO BID Gastrointestinal Issue 10/26/24
repaglinide 1 mg tablet 1 mg PO BID Diabetes 10/26/24
acetaminophen 325 mg tablet 650 mg PO Q6H PRN pain 05/29/25
apixaban 5 mg tablet 5 mg PO BID Blood Clot Prevention/Tx 05/29/25
dapagliflozin propanediol 10 mg tablet 10 mg PO DAILY Diabetes 05/29/25
DAPTOmycin [Cubicin] 800 mg As Directed mls/hr IV Q24H 06/07/25
budesonide 0.5 mg/2 mL suspension for nebulization 0.5 mg (2 mL) inhalation R BID #60 mL 06/07/25
ceftriaxone 2 gram solution for injection 2,000 mg IV Q24H #0 ea 06/07/25
fentanyl 100 mcg/hr transdermal patch 1 patch transdermal Q72H Pain #2 ea 06/07/25
hydrocortisone acetate 25 mg rectal suppository 25 mg [place] HS #12 ea 06/07/25
ipratropium 0.5 mg-albuterol 3 mg (2.5 mg base)/3 mL nebulization soln 3 ml inhalation R QID PRN shortness of breath or wheezing #90 mL 06/07/25
levetiracetam 500 mg tablet 500 mg PO BID #60 tabs 06/07/25
miconazole nitrate 2 % topical powder (Miconazorb AF) 1 applic topical BIDPRN PRN Rash #85 grams 06/07/25
morphine 30 mg immediate release tablet 30 mg PO Q4H PRN pain #20 tabs 06/07/25
polyethylene glycol 3350 17 gram oral powder packet 17 g PO DAILY #30 ea 06/07/25
pregabalin 50 mg capsule 50 mg PO TID #42 caps 06/07/25
sennosides 8.6 mg tablet (Kristal-lamont) 17.2 mg (2 x 8.6 mg) PO HS #30 tabs 06/07/25
Home Medication Changes
You are prescribed IV antibiotics to complete course for Osteomyelitis. (STOP CEFEPIME). Continue IV Daptomycin and IV Ceftriaxone through 06/21 (Antibiotics extended one week to make up for one week while off antibiotics). Please follow up with
your Quality Control Scientist as scheduled. If you cannot see your transplant immunologist in [place], please make an appointment here in [place] (referral above).
STOP GABAPENTIN, this is replaced with Pregabalin 50mg 3x/day.
You are started on Keppra 500mg twice a day for seizure prevention. You cannot drive for at least 6 months.
Take Miralax and Senna for constipation. You can increase Miralax to twice a day if constipated.
You are prescribed nebulizers for suspected COPD and will follow up with Dr. Jama.
Continue your Prilosec for gastritis.
Your Bumex is resumed on discharge. You will get close follow up labs to monitor kidney function.
Pending Results: No
[2025-06-07 15:16] VITALS: BP 115/73
[2025-06-07] MEDS: CUBICIN 16 MG IV (15:26)
[2025-06-07] MEDS: STERILE WATER FOR INJECTION 20 ML IV (15:30)
[2025-06-07] MEDS: ROCEPHIN 2000 MG IV (15:30)
[2025-06-07] MEDS: FLUZONE HIGH-DOSE 2025-26 0.5 ML IM (15:34)
[2025-06-07 16:35] LABS: Glucose - Point of Care 319 mg/dl (70-99)
--- NOTE | 2025-06-07 18:09 | PTCARENOTE ---
Fentayl patch in place on pt's R upper arm/shoulder on d/c. EMS transport made aware. Report called to [facility].
== END 2025-06-07 18:28 | DRG 100 ==
LOC: 3 WEST ACU 12:18
PROVIDERS: Hospitalist; Nurse Practitioner Family; Psychiatry & Neurology Neurology; ADMITTING PHYSICIAN Hospitalist; ATTENDING PHYSICIAN Student in an Organized Health Care Education/Training Program; CONSULT PHYSICIAN Internal Medicine; CONSULT PHYSICIAN Internal Medicine Infectious Disease; EMERGENCY PHYSICIAN Emergency Medicine; FAMILY PHYSICIAN Student in an Organized Health Care Education/Training Program; OTHER PHYSICIAN Internal Medicine Critical Care Medicine
PROC: 3E02340 Introduction of Influenza Vaccine into Muscle, Percutaneous Approach (ICD-10-PCS; 2025-06-07)
DX: R56.9 Unspecified convulsions (principal); G92.8 Other toxic encephalopathy; J96.01 Acute respiratory failure with hypoxia; J96.02 Acute respiratory failure with hypercapnia; G93.40 Encephalopathy, unspecified; I50.32 Chronic diastolic (congestive) heart failure; M86.9 Osteomyelitis, unspecified; N17.9 Acute kidney failure, unspecified; I5A Non-ischemic myocardial injury (non-traumatic); R57.9 Shock, unspecified; F11.20 Opioid dependence, uncomplicated; I48.0 Paroxysmal atrial fibrillation; Z87.891 Personal history of nicotine dependence; Z63.4 Disappearance and death of family member; E11.69 Type 2 diabetes mellitus with other specified complication; E03.9 Hypothyroidism, unspecified; K21.9 Gastro-esophageal reflux disease without esophagitis; Z23 Encounter for immunization
CPT/HCPCS: 36600; 70450; 70553; 71045; 71275; 73600; 80048; 80053; 81003; 81015; 82140; 82533; 82550; 82607; 82746; 82805; 82962; 83036; 83735; 83880; 84100; 84443; 84484; 85014; 85018; 85025; 85027; 85610; 85730; 86692; 86704; 86803; 87040; 87070; 87075; 87086; 87205; 90662; 92526; 92610; 93005; 93306; 94640; 94660; 95708; 95813; 96374; 96375; 97116; 97163; 97167; 97530; 97535; 99291; A9575; G0008; J0878; Q9967